=== PATIENT | male | born 1950 | race Caucasian/White ===

== ENCOUNTER → 2019-03-02 14:39 | Outpatient (CLI) | payer MEDICARE, SELFPAY ==
--- NOTE | 2019-03-02 14:44 | CT_ITS ---
EXAM: CT LUNG LOW DOSE WO CONTRAST TECHNIQUE: The exam was performed on a GE Light Speed [address] scanner using 3.0 mGy CTDI. A low dose helical CT CHEST was performed on a multi-detector scanner. All CT scans at this facility use one or more dose reduction techniques, viz.: automated exposure control, ma/kV adjustment per patient size (including targeted exams where dose is matched to indication, i.e. head) or iterative reconstruction technique. The LDCT was performed in a facility that meets the criteria for the screening program. Data regarding this exam was submitted to ACR which is an approved registry. The order for this exam indicates that it came as a result of a lung cancer screening counseling shard decision-making visit that included all the elements required of such a visit including smoking cessation. The radiologist interpreting this exam meets the [facility] criteria for the LDCT lung cancer screening program. The exam is reported using the Lung-RADS classification scale and reported to the ACR registry. NOTE: This study was performed for the specific purposes of lung cancer screening and is not an alternative to diagnostic chest CT. RADIATION DOSE: CTDI vol(CT dose Index-volume) = 2.9mGy DLP (Dose Length Product) = 112.81 mGy-cm COMPARISON: None HISTORY: 1 pack per day for 40 years = 40 pack-year history currently smoking. FINDINGS: LUNG PARENCHYMA Emphysema: Prominent centrilobular emphysematous changes . Scattered small peripheral blebs are most evident overlying posterior aspect of left lower lobe.-As seen on sagittal views. Also small bleb just above right hemidiaphragm . Areas of honeycombing and fibrotic changes are seen about the periphery of the lung greene bilaterally particularly evident towards the posterior right lung base. An above the hemidiaphragm on right more so than left... LUNG NODULE Survey.: No Dominant or suspicious mass lesions but there are some scattered small peripheral noncalcified nodules abutting the pleura bilaterally. These are most evident evident at the anterior aspect right upper lobe. For example note on axial slice 35 there is a 5 mm peripheral nodule abutting the pleura, and just lateral to this a small 4 mm similar character nodule. Just superior to this is a slightly bilobed up to 5 mm nodule on axial image 34. Slightly more inferior on image 39 is a thin 4.7 mm peripheral nodule. There are some minor pleural thickening throughout this entire region along with some minimal pleural calcification seen axial image 45. Small pleural-based peripheral 5 mm nodule axial image 53 On axial image 60 there is focal scarring I believe accounting for the flat 7 mm density peripherally at reflection of major fissure at the anterior reflection of the major fissure. I tend to favor all the areas mentioned above are due to scarring but will benefit from follow-up. . Small nonspecific 6.4 mm nodule at the RML intact as to the inferior aspect of the minor fissure and likely small fissural nodule but can be followed. On this same axial image 44 there is a 7 mm nodule extending inferior from the major fissure possible fissural nodule./Node. Small 5 mm nodule on axial image 42, attaches to the inferior margin the fissure and likely small benign contusion or nodule. More superiorly at the right lung apex small noncalcified peripheral nodule 6 mm in size on axial image 19. Apical pleural scarring on axial image 13, coronal image 42 most likely accounts for the density here. Left Lung: . Small peripheral 5 x 6 mm nodule left CP angle on axial image 69. Coronal image 42 .Small 5 mm peripheral nodule axial image 61 ... A tiny 4.2 mm nodule at periphery of LLL on axial image 53 mild central airway thickening. Of thes
== END ==
PROVIDERS: PCP Family Medicine; Visit Provider Family Medicine
DX: Z12.2 Encounter for screening for malignant neoplasm of respiratory organs (principal); Z87.891 Personal history of nicotine dependence

== ENCOUNTER → 2019-03-23 08:10 | Outpatient (CLI) | payer MEDICARE, SELFPAY ==
--- NOTE | 2019-03-23 08:12 | US_ITS ---
US gallbladder HISTORY: ITS.REASON: gallstones ORDERING PHYSICIAN: Steven De La Cruz MD PATIENT AGE: 68 years Comparison: None FINDINGS: PANCREAS: Pancreas is poorly demonstrated and may be better evaluated with CT. LIVER: No focal liver lesions demonstrated. Homogeneous echogenicity. No intrahepatic biliary ductal dilatation evident RIGHT KIDNEY: Unremarkable. Normal size and echogenicity. No hydronephrosis GALLBLADDER: Multiple gallstones are present. Common bile duct is normal at 3 mm. No gallbladder wall thickening or pericholecystic fluid. IMPRESSION: Cholelithiasis
== END ==
PROVIDERS: PCP Family Medicine; Visit Provider Surgery
DX: K82.9 Disease of gallbladder, unspecified (principal)
CPT/HCPCS: 76705

== ENCOUNTER → 2019-04-13 09:33 | Outpatient (CLI) | payer MEDICARE, SELFPAY ==
--- NOTE | 2019-04-13 09:38 | US_ITS ---
US Kidney CLINICAL INDICATION: ITS.REASON: CYST OF KIDNEY ORDERING PHYSICIAN: Juan F Saravia JR PATIENT AGE: 69 years Comparison: 03/02/2019 FINDINGS: Right kidney measures 13 x 6 x 6 mm. There is a small exophytic cyst projecting off the posterior aspect of the right kidney at 1 cm. No hydronephrosis. The left kidney is 15 x 6 x 7 cm. There are 4 left renal cyst with the largest cyst measuring 11 x 9 cm along the upper pole. This appears to represent a simple cyst as do the other smaller cysts. They range in size from 13 to 29 mm. No hydronephrosis. IMPRESSION: Bilateral renal cysts with with an 11 x 9 cm cyst along the upper pole the left kidney which has benign features
== END ==
PROVIDERS: PCP Family Medicine; Visit Provider Urology
DX: N28.1 Cyst of kidney, acquired (principal)
CPT/HCPCS: 76770

== ENCOUNTER → 2020-01-03 15:01 | Outpatient (CLI) | payer MEDICARE, SELFPAY ==
--- NOTE | 2020-01-03 15:05 | US_ITS ---
PROCEDURE: US KIDNEY CLINICAL INDICATION: CYST OF KIDNEY COMPARISON: KIDNEY US Kidney from 04/13/2019 FINDINGS: The right kidney is 11.5x5.4x5.4 centimeters. No hydronephrosis, cortical thinning, or perinephric fluid collection is evident. A 1.2 x 1.0 x 1.0 centimeter midpole right renal cyst is noted. The left kidney is 11.5x5.4x5 centimeters. No hydronephrosis, cortical thinning, or perinephric fluid collection is evident. There are 2 left renal cysts. Complicated one containing some internal echoes and rim calcification measures 1.6 by 1.2 by 0.93 centimeters and lower pole cyst with internal septation 1.2 x 1.3 x 1.1 centimeter is noted. Incidental note is made of borderline splenomegaly spleen 13.3 centimeters pole to pole and cholelithiasis. IMPRESSION: Bilateral renal cortical cysts without obstruction. Incidental cholelithiasis and nonspecific splenomegaly. Dictated by: Alejandro Reynolds 01/03/2020 17:29 Electronically signed by Alejandro Reynolds in [place] 01/03/2020 17:29
== END ==
PROVIDERS: PCP Family Medicine; Visit Provider Urology
DX: N28.1 Cyst of kidney, acquired (principal)
CPT/HCPCS: 76770

== ENCOUNTER → 2020-08-04 09:51 | Outpatient (CLI) | payer MEDICARE, SELFPAY ==
--- NOTE | 2020-08-04 | ECG_ITS ---
APPROVED REPORT Exam: Resting ECG HR:54 bpm ECG Measurements Heart Rate 54 AXES MT 140 P 46 QRSd 96 QRS -38 QT 406 T 33 QTc 385 <Conclusion> Sinus bradycardia Left axis deviation Abnormal ECG Electronically signed by : Mark Pineda, 08/04/2020 20:52:41
== END ==
PROVIDERS: PCP Family Medicine; Visit Provider Family Medicine
DX: R07.9 Chest pain, unspecified (principal)
CPT/HCPCS: 93005

== ENCOUNTER → 2020-08-05 07:01 | Outpatient (CLI) | payer MEDICARE, SELFPAY ==
--- NOTE | 2020-08-05 | CA_ITS ---
APPROVED REPORT Exam: Exercise Treadmill Technologist: Linda Gillis Ht: 5 ft 9 in Wt: 180 lbs BSA: 1.98 m2 HR: 52 bpm BP: 157/83 mmHg Indications: Smoker, chest pain, shortness of breath Medical History Medications: Aspirin,,,,, Vitamin B12,,,,, Citalopram,,,,, Ibuprofen,,,,, Stress Test Details Test: Christiano HR Resting HR: 58 bpm Max Heart Rate (APMHR): 152 bpm Max HR Achieved: 142 bpm Target HR (85% APMHR): 129 bpm % of APMHR: 93 Recovery HR: 67 bpm BP Resting BP: 157.0/83.0 mmHg Max BP: 190.0/80.0 mmHg Recovery BP: 165.0/82.0 mmHg ECG Clinical Exercise duration: 07:30 min Highest Stage Achieved: Exercise capacity: 10.1 METs Stress ECG Conclusion Resting ECG: Sinus bradycardia, T wave abnormalities in Lead III, PVC Patient exercised 7:30 on Christiano Protocol. Test stopped due to shortness of air, fatigue. Symptoms: No chest pain during exercise. Mild chest pressure pre-test. Arrhythmias/Ectopy: Occasional PVC or fusion beat. one V couplet. Sinus arrhythmias noted in recovery. ST-T Changes: Normal ST response to exercise. Conclusion: Normal GXT. Myoview images reported separately. Test Summary Stage 3 01:30 14.0 3.4 142 . . . . REST . . . . . . . Standing REST 05:50 0.0 0.0 58 . 157/ 83 . . Stage 1 01:00 10.0 1.7 90 . . . . Stage 1 02:00 10.0 1.7 97 . . . . Stage 1 03:00 10.0 1.7 101 . 158/ 88 . . Stage 2 01:00 12.0 2.5 109 . . . . Stage 2 . . . . . . . chest pressure Stage 2 02:00 12.0 2.5 116 . . . . Stage 2 03:00 12.0 2.5 119 . 180/ 90 . . Stage 3 . . . . . . . Myoview Injected Stage 3 01:00 14.0 3.4 136 . . . . Stage 3 01:30 14.0 3.4 142 . . . Stop exercise at 07:30 RECOVERY 01:00 0.0 0.0 108 . . . . RECOVERY 02:00 0.0 0.0 93 . 190/ 80 . . RECOVERY 03:00 0.0 0.0 77 . 190/ 80 . . RECOVERY 04:00 0.0 0.0 80 . 159/ 83 . . RECOVERY 05:00 0.0 0.0 70 . 165/ 82 . . RECOVERY 05:17 0.0 0.0 68 . 165/ 82 . . Electronically signed by : Frederick Crabtree, 08/05/2020 18:35:37
--- NOTE | 2020-08-05 07:14 | NM_ITS ---
APPROVED REPORT Exam: Nuclear Stress Test Indication: Chest pain, SOB, Former tobacco use, Family history Patient Location: Outpatient Stress Tech: Linda Gillis ND Tech:Nidia Chris, ARRT, RT (R)(N) Ht: 5 ft 9 in Wt: 180 lbs HR: 52 bpm BP: 157/83 mmHg BSA: 1.98 m2 BMI: 26.5 History: Chest pain, SOB, Former tobacco use, Family history Procedure: Patient exercised on Christiano protocol 7:30 minutes and sec, resting heart rate 52 bpm, resting blood pressure 157/83 mmHg, with exercise maximum heart rate achived was 142 bpm which is 93 % of the maximum predicted heart rate and blood pressure was 190/80 mmHg. Test was stopped due to SOA and fatigue. Patient denied any complaint of chest pain. Patient has good exercise capacity, achieved 10.1 METs of workload on treadmill, the blood pressure response to exercise was Adequate. Electrocardiogram Resting electrocardiogram shows sinus rhythm, with exercise there is less than 1.[address] segment depression noted from the baseline EKG. The EKG portion of the exercise Myoview is negative for ischemia. Cardiac Stress and Resting SPECT Images: Cardiac Stress and Resting SPECT images were obtained using technetium 99m Myoview 32.9 mCi stress and 10.79 mCi at rest. Gated SPECT for analysis of segmental wall motion and calculation of the ejection fraction also done. Cardiac stress and resting SPECT images show uniform myocardial activity without segmental perfusion abnormality, computer derived ejection fraction is 65% with no regional wall motion abnormality, right ventricle is normal size and contractility. Conclusion: 1. The EKG portion of the exercise Myoview is negative for ischemia, patient has good exercise capacity achieved 10.1 mets of workload on treadmill, the blood pressure response to exercise was adequate, there was no exercise-induced chest discomfort. Test was stopped due to shortness of breath. 2. No scintigraphic evidence of reversible ischemia seen at this level of exercise, computer derived ejection fraction is 65% with no regional wall motion abnormality, right ventricle is normal size and contractility. 3. Normal exercise Myoview study. Electronically signed by : Frederick Crabtree, 08/05/2020 18:41:39
--- NOTE | 2020-08-05 07:15 | CT_ITS ---
PROCEDURE: CT LUNG SCREENING CLINICAL INDICATION: H/O NICOTINE DEPENDENCE QUIT SMOKING NOV 2019 40-41 pack year smoking history COPD, FAMILY HX PRIOR 03/02/19 COMPARISON: CT LUNGSCREEN CT lung screening from 03/02/2019 TECHNIQUE: The exam was performed on a GE Light Speed [address] scanner using 2.90 mGy CTDI. A low dose helical CT CHEST was performed on a multi-detector scanner. All CT scans at the facility use one or more dose reduction, viz: automated exposure control, ma/kV adjustment per patient size (including targeted exams where dose is matched to indication, i.e. head), or iterative reconstruction technique. The LDCT was performed in a facility that meets the criteria for the screening program. Data regarding this exam was submitted to ACR which is an approved registry. The order for this exam indicates that it came as a result of a lung cancer screening counseling shard decision-making visit that included all the elements required of such a visit including smoking cessation. The radiologist interpreting this exam meets the [facility] criteria for the LDCT lung cancer screening program. The exam is reported using the Lung-RADS classification scale and reported to the ACR registry. NOTE: This study was performed for the specific purposes of lung cancer screening and is not an alternative to diagnostic chest CT. RADIATION DOSE: CTDI vol(CT dose Index-volume) = 2.90mG DLP (Dose Length Product) = 98.21 mGcm FINDINGS: Changes of COPD. Right apical scarring with pleural and parenchymal nodularity not significantly changed. There are scattered pleural and parenchymal opacities which are not significantly changed. There is peripheral interlobular septal thickening consistent with interstitial lung disease with some pulmonary fibrosis. Of the. No new nodules are identified. OTHER FINDINGS: Coronary artery calcifications. Small hiatal hernia. There is pleural thickening and calcification of the pleura posteriorly with calcified pleural plaques on the right. Cholelithiasis. IMPRESSION: Lung-RADS Category 2 Benign Appearance or Behavior Follow-up: Continue annual screening with LDCT in 12 months Dictated by: Triston Moreno MD 08/18/2020 10:07 Triston Moreno MD in [place] 08/18/2020 10:07
== END ==
PROVIDERS: PCP Family Medicine; Visit Provider Family Medicine
DX: R07.9 Chest pain, unspecified (principal); Z87.891 Personal history of nicotine dependence; Z12.2 Encounter for screening for malignant neoplasm of respiratory organs
CPT/HCPCS: 78452; 93017; A9502

== ENCOUNTER → 2021-02-09 12:43 | Outpatient (CLI) | payer MEDICARE, SELFPAY ==
--- NOTE | 2021-02-09 12:48 | US_ITS ---
PROCEDURE: US KIDNEY CLINICAL INDICATION: CYST OF KIDNEY COMPARISON: US US KIDNEY from 01/03/2020 FINDINGS: The right kidney is [id number]. No hydronephrosis, cortical thinning, or renal mass or perinephric fluid collection is evident. Focal anechoic lesion is noted in the right kidney measuring 1.2 centimeters. The left kidney is [id number]. No hydronephrosis, cortical thinning, or renal mass or perinephric fluid collection is evident. Multiple anechoic lesions noted in the left kidney, largest measures up to 1.8 x 1.7 centimeters, demonstrates internal septations. The spleen is normal in size measuring 11.5 centimeters in craniocaudal dimension. IMPRESSION: Bilateral simple and complex cysts. No evidence of hydronephrosis. Dictated by: Pallavi Olivo 02/09/2021 16:26 Pallavi Olivo in [place] 02/09/2021 16:26
== END ==
PROVIDERS: PCP Family Medicine; Visit Provider Urology
DX: N28.1 Cyst of kidney, acquired (principal)
CPT/HCPCS: 76770

== ENCOUNTER → 2022-03-12 13:46 | Outpatient (CLI) | payer MEDICARE, SELFPAY ==
--- NOTE | 2022-03-12 13:53 | XR_ITS ---
FINAL REPORT CLINICAL HISTORY: knee pain FINDINGS: LEFT KNEE Four views were obtained. There is no acute fracture or dislocation. There is a small osteophyte along the superior margin of the patella. There is sharpening of the tibial spines. Small joint effusion is identified. No soft tissue abnormality is identified. IMPRESSION: Degenerative change without acute process. Reviewed, Interpreted and Dictated by Anthony Anand MD Transcribed by Elizabet Martinze Authenticated by Anthony Anand MD on 03/12/2022 03:18:34 PM [facility]
== END ==
PROVIDERS: PCP Family Medicine; Visit Provider Orthopaedic Surgery
DX: M25.562 Pain in left knee (principal)
CPT/HCPCS: 73564

== ENCOUNTER → 2022-03-19 13:50 | Outpatient (CLI) | payer MEDICARE, SELFPAY ==
--- NOTE | 2022-03-19 13:53 | XR_ITS ---
FINAL REPORT CLINICAL HISTORY: rt knee pain FINDINGS: 4 views of the right knee were obtained. No prior exam is available for comparison. There is no acute fracture or dislocation. Mild degenerative joint disease is most pronounced in the patellofemoral compartment. The soft tissues are unremarkable. IMPRESSION: Mild degenerative joint disease most pronounced in the patellofemoral compartment. Reviewed, Interpreted and Dictated by Danielle Hoffman MD Transcribed by Arnaldo Canseco Authenticated by Danielle Hoffman MD on 03/19/2022 03:43:08 PM [facility]
== END ==
PROVIDERS: PCP Family Medicine; Visit Provider Orthopaedic Surgery
DX: M25.561 Pain in right knee (principal)
CPT/HCPCS: 73564

== ENCOUNTER → 2022-09-14 12:21 | Outpatient (CLI) | payer MEDICARE, SELFPAY ==
--- NOTE | 2022-09-14 12:29 | XR_ITS ---
FINAL REPORT CLINICAL HISTORY: foot pain unable to walk without pain bunions FINDINGS: Right foot Three views were obtained. There is no acute fracture or dislocation. There is severe hallux valgus deformity. There is 2nd through 3rd hammer toes. There are chronic erosions of the 2nd through 5th metatarsal heads. There are moderate degenerative changes of the midfoot. Small plantar calcaneal spur is identified. IMPRESSION: Degenerative and chronic appearing findings as above. Reviewed, Interpreted and Dictated by Steven Wilkerson III, MD Transcribed by Elizabet Martinez Authenticated and [facility]
--- NOTE | 2022-09-14 12:29 | XR_ITS ---
FINAL REPORT CLINICAL HISTORY: foot pain unable to walk without pain bunions FINDINGS: Left foot Three views were obtained. There is no acute fracture or dislocation. There is moderate hallux valgus deformity. There is chronic erosion at the 1st interphalangeal joint and 2nd through 5th metatarsophalangeal Alex there are moderate degenerative changes of the midfoot. Small plantar calcaneal spur is identified. IMPRESSION: Degenerative and chronic appearing findings. Reviewed, Interpreted and Dictated by Steven Wilkerson III, MD Transcribed by Elizabet Martinez Authenticated and [facility]
== END ==
PROVIDERS: PCP Family Medicine; Visit Provider Podiatrist
DX: M79.671 Pain in right foot (principal); M79.672 Pain in left foot
CPT/HCPCS: 73630

== ENCOUNTER 2022-11-10 18:22 | Emergency (ER) | payer MEDICARE, SELFPAY ==
[2022-11-10 18:23] VITALS: BP 139/68; PULSE 88; RESP 20; TEMP 38.3; O2SAT 98; BMI 22.7
--- NOTE | 2022-11-10 18:32 | ECG_ITS ---
APPROVED REPORT Exam: Resting ECG HR:91 bpm ECG Measurements Heart Rate 91 AXES NV 125 P 58 QRSd 109 QRS -62 QT 340 T 39 QTc 388 Conclusion SINUS RHYTHM LEFT ANTERIOR FASCICULAR BLOCK [QRS AXIS <= -45, QR IN I, RS IN II] ABNORMAL ECG UNCONFIRMED REPORT Electronically signed by : Mark Pineda MD 11/12/2022 08:54:15
--- NOTE | 2022-11-10 18:38 | XR_ITS ---
PROCEDURE INFORMATION: Exam: XR Chest Exam date and time: 11/10/2022 6:43 PM Age: 72 years old Clinical indication: Shortness of breath; Additional info: Shortness of air TECHNIQUE: Imaging protocol: Radiologic exam of the chest. Views: 2 views. COMPARISON: CT LUNG SCREENING 08/05/2020 7:19 AM FINDINGS: Lungs: Chronic pulmonary emphysematous changes, peripheral fibrosis and interstitial scarring, this appears progressed compared with the previous lung CT from 08/05/2020. Worsened peripheral airspace disease could be due to progressive fibrosis versus superimposed bilateral pneumonia. Pleural spaces: Unremarkable. No significant pleural effusion. No pneumothorax. Heart/Mediastinum: The cardiac silhouette is normal. Vasculature: Calcified plaques in the aortic arch. Bones/joints: Thoracolumbar scoliosis.There are spinal degenerative changes, with multilevel disc narrrowing and spondylosis. IMPRESSION: 1. Chronic pulmonary hyperinflation, interstitial lung disease and fibrosis. 2. Significantly worsened peripheral pulmonary airspace opacities bilaterally compared with 08/05/2020, which could be progressive fibrosis versus superimposed bilateral pneumonia.
[2022-11-10 18:40] VITALS: BMI 22.7
--- NOTE | 2022-11-10 18:42 | PC.NURSE ---
DR. MUÑIZ AT BEDSIDE
--- NOTE | 2022-11-10 18:45 | PC.NURSE ---
SIDRA CADENA AT
--- NOTE | 2022-11-10 18:51 | HMH.EDGENADL ---
Discharge Plan Disposition Patient Disposition: Home, Self-Care Condition: Good Prescriptions Prescriptions: New amoxicillin-pot clavulanate [Augmentin] 500-125 mg tablet 1 tab PO Q12H 10 Days Qty: 20 0RF ondansetron HCl 4 mg tablet 4 mg PO Q6H PRN (Reason: nausea and vomiting) Qty: 10 0RF No Action celecoxib 200 mg capsule 200 mg PO DAILY citalopram 20 mg tablet 20 mg PO DAILY trazodone 100 mg tablet 100 mg PO DAILY ibuprofen 800 mg tablet 800 mg PO TID naproxen sodium [Aleve] 220 mg capsule 220 mg PO Q8H aspirin [Adult Low Dose Aspirin] 81 mg tablet,delayed release (DR/EC) 81 mg PO DAILY Referrals Follow up/Referrals: Brandon Bennett MD [Primary Care Provider] - See instructions Activity Restrictions/Add. Instructions Additional Instructions/Restrictions: Take 1000 mg Tylenol every 6 hours along with 600 mg ibuprofen every 6 hours for inflammation. Make sure to take this with food and water to prevent GI upset, vomiting, kidney damage. Take your antibiotic twice daily for 10 days as prescribed. Ondansetron has been sent to the pharmacy for symptomatic nausea and vomiting. If you have any other concerning signs or symptoms, or worsen despite treatment, come to the ED for further evaluation promptly. Clinical Impressions Clinical Impression: Pneumonia Instructions Patient Instructions: DI for Diarrhea and Traveler's Diarrhea -- Adult, DI for Diarrhea and Traveler's Diarrhea -- Child, DI for Nausea -- Adult, DI for Nausea -- Child Discharge ED Provider: Mars Guzman General Adult HPI General Chief complaint: Nausea/Vomiting/Diarrhea Stated complaint: SOA Time Seen by Provider: 11/10/22 18:30 Mode of Arrival: Ambulatory Source of Information: Patient Limitations: No Limitations History of Present Illness HPI narrative: This is a 72-year-old male with history of COPD who is presenting with fever, cough, shortness of breath. Patient states that he has been progressively short of breath over the past 3 to 4 days. Coughing up green and white sputum. He has also had sinus drainage that is green and yellow. He feels febrile and chilled, however has not had any objective temperatures measured. Patient was also had nonbloody diarrhea. He has been able to tolerate p.o. intake, although less given decreased appetite. Denies chest pain, abdominal pain, dysuria, hematuria, unilateral weakness, headache, or any other concerning symptoms. No known sick contacts or recent travel. Related Data Home Medications Medication Instructions Recorded Confirmed aspirin 81 mg tablet,delayed 81 mg PO DAILY 03/16/19 09/17/22 release (Adult Low Dose Aspirin) citalopram 20 mg tablet 20 mg PO DAILY 03/16/19 09/17/22 ibuprofen 800 mg tablet 800 mg PO TID 03/16/19 09/17/22 naproxen sodium 220 mg capsule 220 mg PO Q8H 03/16/19 09/17/22 (Aleve) trazodone 100 mg tablet 100 mg PO DAILY 03/16/19 09/17/22 celecoxib 200 mg capsule 200 mg PO DAILY 06/18/22 09/17/22 Previous Rx's Medication Instructions Recorded amoxicillin 500 mg-potassium 1 tab PO Q12H 10 days #20 tabs 11/10/22 clavulanate 125 mg tablet (Augmentin) ondansetron HCl 4 mg tablet 4 mg PO Q6H PRN nausea and 11/10/22 vomiting #10 tabs Allergies Allergy/AdvReac Type Severity Reaction Status Date / Time No Known Allergies Allergy Verified 09/17/22 09:19 [facility] Disclaimer: The information contained in this section may have been updated after the patient was seen, as this information can be updated by other users. Social History Smoking Status: Never smoker alcohol intake: never current occupational status: unemployed Travel in the last 8 weeks: None ROS Obtained: Yes All systems reviewed & no additional complaints except as documented Physical Exam General General appearance: alert, in no apparent distress and other (Diaph
--- NOTE | 2022-11-10 18:52 | PC.NURSE ---
PT TO CT
[2022-11-10 18:53] LABS: Basophils % 0.4 % (0.1-2.0); Eosinophils # 0.1 K/mm3 (0.0-0.4); Eosinophils % 0.6 % (0.1-12.0); Hematocrit 32.3 % (42.0-52.0); Hemoglobin 10.4 g/dL (14.1-18.0); Lymphocytes # 0.9 K/mm3 (0.7-4.5); Lymphocytes % 11.7 % (10-50); Mean Corpuscular HGB Conc 32.1 g/dL (31.8-35.4); Mean Corpuscular Hemoglobin 23.4 pg (27.0-31.2); Mean Corpuscular Volume 73.1 fl (80-94); Mean Platelet Volume 7.7 fl (7.4-10.4); Monocytes # 0.2 K/mm3 (0.1-1.0); Monocytes % 2.6 % (1.7-9.3); Neutrophils # 6.4 K/mm3 (1.8-7.8); Neutrophils % 84.7 % (37.0-80.0); Platelet Count 532 K/mm3 (142-424); Red Blood Count 4.42 M/mm3 (4.60-6.20); Red Cell Distribution Width 16.8 % (11.5-17.5); White Blood Count 7.5 K/mm3 (4.8-10.8)
[2022-11-10 19:04] LABS: Chloride 105 mmol/L (98-107); Sodium 139 mmol/L (136-145)
[2022-11-10 19:05] LABS: Coronavirus 19, PCR Not Detected (NotDetected); Influenza A, PCR Not Detected (NotDetected); Influenza B, PCR Not Detected (NotDetected); Potassium 4.1 mmoL/L (3.5-5.1)
[2022-11-10 19:07] LABS: Alanine Aminotransferase 31 U/L (12-78); Albumin Level 3.5 g/dl (3.5-5.0); Albumin/Globulin Ratio 0.9 (1.1-1.8); Alkaline Phosphatase 150 U/L (38-126); Anion Gap 10.1 mEq/L (5-15); Aspartate Amino Transferase 40 U/L (17-59); Bilirubin,Total 0.4 mg/dl (0.2-1.3); Blood Urea Nitrogen 16 mg/dl (9-20); Carbon Dioxide 28 mmol/L (22.0-30.0); Creatinine Clearance Estimated 68 mL/min (50-200); Estimated Glomerular Filt Rate 96 ml/min (>60); GFR (African American) 116 ML/MIN (>60); Globulin 3.7 g/dL (1.3-3.2); Total Protein,Serum 7.2 g/dl (6.3-8.2)
[2022-11-10 19:08] LABS: Calcium 8.4 mg/dl (8.4-10.2); Glucose 149 mg/dl (74-100)
[2022-11-10 19:09] LABS: Lactic Acid 1.4 mmol/L (0.7-2.1)
[2022-11-10 19:19] LABS: NT Pro Brain Natriuretic Pep. 721 pg/mL (0-125)
[2022-11-10 19:29] LABS: Troponin I < 0.01 ng/ml (0.00-0.034)
[2022-11-10 19:38] VITALS: TEMP 37.2
[2022-11-10 20:45] VITALS: BP 131/78; PULSE 82; RESP 20; TEMP 37.2; O2SAT 98
== END 2022-11-10 20:48 | disposition home or self-care (01) ==
PROVIDERS: Emergency Provider Emergency Medicine; PCP Family Medicine
DX: R50.9 Fever, unspecified (principal); R11.2 Nausea with vomiting, unspecified; R19.7 Diarrhea, unspecified; R61 Generalized hyperhidrosis; R00.0 Tachycardia, unspecified; R79.89 Other specified abnormal findings of blood chemistry; J44.9 Chronic obstructive pulmonary disease, unspecified; Z79.1 Long term (current) use of non-steroidal anti-inflammatories (NSAID); Z79.82 Long term (current) use of aspirin; Z79.899 Other long term (current) drug therapy
CPT/HCPCS: 71046; 80053; 83605; 83880; 84484; 85025; 87040; 93005; 96361; 96374; 99284; C9803; J0696; U0003; U0005

== ENCOUNTER → 2022-12-27 15:13 | Outpatient (CLI) | payer MEDICARE, SELFPAY ==
--- NOTE | 2022-12-27 15:18 | XR_ITS ---
FINAL REPORT CLINICAL HISTORY: COUGH COMPARISON: 11/10/2022 FINDINGS: PA and lateral views of the chest were obtained. The cardiac and mediastinal silhouettes are within normal limits. There are patchy bilateral opacities which have improved with the exception of the right lower lobe. There are increased interstitial markings which may represent underlying fibrosis. There is no pleural effusion or pneumothorax. No acute osseous abnormality is identified. IMPRESSION: Improved pulmonary opacities other than the right lower lobe, residual pneumonia is not excluded. Underlying pulmonary fibrosis. Reviewed, Interpreted and Dictated by Danielle Hoffman MD Transcribed by Elizabet Martinez Authenticated and [facility]
[2022-12-27 16:04] LABS: Basophils % 0.4 % (0.1-2.0); Eosinophils # 0.1 K/mm3 (0.0-0.4); Eosinophils % 0.7 % (0.1-12.0); Hematocrit 33.5 % (42.0-52.0); Hemoglobin 10.4 g/dL (14.1-18.0); Lymphocytes # 2.1 K/mm3 (0.7-4.5); Mean Corpuscular Hemoglobin 22.6 pg (27.0-31.2); Mean Platelet Volume 7.7 fl (7.4-10.4); Monocytes # 0.5 K/mm3 (0.1-1.0); Monocytes % 4.3 % (1.7-9.3); Neutrophils # 8.3 K/mm3 (1.8-7.8); Neutrophils % 75.6 % (37.0-80.0); Platelet Count 503 K/mm3 (142-424); Red Cell Distribution Width 17.4 % (11.5-17.5)
[2022-12-27 16:50] LABS: Alanine Aminotransferase 28 U/L (12-78); Albumin Level 3.5 g/dl (3.5-5.0); Albumin/Globulin Ratio 0.9 (1.1-1.8); Alkaline Phosphatase 119 U/L (38-126); Anion Gap 10.4 mEq/L (5-15); Aspartate Amino Transferase 32 U/L (17-59); Bilirubin,Total 0.3 mg/dl (0.2-1.3); Blood Urea Nitrogen 26 mg/dl (9-20); Calcium 8.9 mg/dl (8.4-10.2); Carbon Dioxide 27 mmol/L (22.0-30.0); Chloride 103 mmol/L (98-107); Estimated Glomerular Filt Rate 111 ml/min (>60); GFR (African American) 135 ML/MIN (>60); Globulin 3.8 g/dL (1.3-3.2); Glucose 83 mg/dl (74-100); Potassium 4.4 mmoL/L (3.5-5.1); Sodium 136 mmol/L (136-145); Total Protein,Serum 7.3 g/dl (6.3-8.2)
== END ==
PROVIDERS: PCP Family Medicine; Visit Provider Family Medicine
DX: R05.9 Cough, unspecified (principal); R63.4 Abnormal weight loss
CPT/HCPCS: 36415; 71046; 80053; 85025

== ENCOUNTER 2023-01-05 09:16 | Day surgery (SDC) | payer MEDICARE, SELFPAY ==
[2022-12-09 13:39] VITALS: BMI 20.9
[2023-01-05 09:46] VITALS: BP 136/70; PULSE 107; RESP 22; TEMP 37; O2SAT 98
[2023-01-05 10:12] VITALS: O2SAT 98
--- NOTE | 2023-01-05 10:22 | P.PN_ITS ---
[facility] Disclaimer: The information contained in this section may have been updated after the patient was seen, as this information can be updated by other users. Medical History History of anemia History of anxiety History of vitamin D deficiency Surgical History Hx of total cystectomy Family History Other Family history of cancer Family history of diabetes mellitus type II Family history of hypertension Social History Smoking Status: Former smoker quit date: 12/16/18 alcohol intake: never substance use type: denies use current occupational status: unemployed Travel in the last 8 weeks: None housing: house lives independently: No marital status: education level: high school caffeine: Yes special vianca needs: No agree to transfusion: No do you feel safe at home: Yes victim of physical abuse: No victim of emotional abuse: No victim of sexual abuse: No would you like helpful sources: No [facility] Anesthesia Checklist Patient Identification Patient Identification: Arm Band Structural Data Admitted From: Home Planned Operative Procedure/s: EGD/Colonoscopy Consent for Planned Operative Procedure(s) Verified: Yes Verified Documents: Surgical Consent and History and Physical NPO Status Verified Time NPO: 00:00 Additional verifications Anesthesia Reactions: No Airway Assessment C-Spine Mobility Assessed: Yes TMJ Mobility Assessed: Yes Dentition: Good Dentition Neurological Assessment Level of Consciousness: Awake and Alert Anesthesia Plan Anesthesia Risk discussed: Yes Anesthesia Plan: Verified ASA Class: III Anesthesia Type: MAC
--- NOTE | 2023-01-05 10:44 | HMH.SCOPE ---
Procedure: Date: 01/05/23 Patient Date of :: 1950 Procedure Performed:: Colonoscopy Indications:: Hisory of colon polyps. Anemia Performing Provider:: Godwin Pritchard MD Referring Provider:: Sagar Bennett MD Sedation:: See RN records Procedure:: After placing the patient in the left lateral decubitus position, the colonoscopy was gently inserted into the rectum and under direct visualization advanced to the cecum which was identified by transillumination in the right lower quadrant, identification of the ileocecal valve, appendiceal orifice, and cecal strap. Color, texture, mucosa, and anatomy of the colon were carefully examined with the scope. bowel prepraation was good Findings:: Anal canal: normal Rectum: Large internal hemorrhoids Sigmoid colon: diverticulosis Descending colon: diverticulosis Splenic flexure: normal Transverse colon: normal without polyps or inflammatory changes Hepatic flexure: normal Ascending colon: normal without polyps or inflammatory changes Cecum: small non bleeding avm Terminal ileum: not visualized Impression: Diverticulosis Small non bleeding avm of cecum Recommendations:: Recommend iron replacement therapy as needed Higher fiber diet Repeat colonosocpy in 5 years Complications:: None Estimated blood obtained (mL): 0
[2023-01-05 10:45] VITALS: BP 98/54; PULSE 95; RESP 17; TEMP 36.6; O2SAT 95
--- NOTE | 2023-01-05 10:47 | P.PCN_ITS ---
Procedure: Date: 01/05/23 Patient Date of :: 1950 Procedure Performed:: EGD Indications:: Anemia Performing Provider:: Godwin Pritchard MD Referring Provider:: Sagar Bennett MD Sedation:: See RN records Procedure:: The gastroscope was gently passed through the incisoral orifice into the oral cavity and under direct visualization the esophagus was intubated. The endoscope was passed down the esophagus, through the stomach, and into the duodenum. Color, texture, mucosa, and anatomy of the esophagus, stomach, and duodenum were carefully examined with the scope. 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 Multiple biopsies obtained in four quadrant fashion over the length of Chanel's mucosa EG Junction: measured at 39 cm Cardia: normal Fundus: normal Body: normal Antrum: normal Duodenal bulb: normal Duodenum (second and third portion): not seen (looping of EGD scope within stomach would not allow advancing EGD, patient developed repetitive coughing and procedure aborted) Impression: Chanel's esophagus. [id number] Recommendations:: Await pathology results Omeprazole 40 mg once daily Repeat EGD in 3 years or sooner if clinically indicated Complications:: None Estimated blood obtained (mL): 0
[2023-01-05 10:55] VITALS: BP 97/64; PULSE 92; RESP 16; O2SAT 95
[2023-01-05 11:05] VITALS: BP 112/68; PULSE 82; RESP 17; O2SAT 98
[2023-01-05 11:15] VITALS: BP 115/65; PULSE 87; RESP 17; O2SAT 98
== END 2023-01-05 11:21 | disposition home or self-care (01) ==
PROVIDERS: PCP Family Medicine; Visit Provider Internal Medicine
PROC: 0DJ08ZZ Inspection of Upper Intestinal Tract, Via Natural or Artificial Opening Endoscopic (ICD-10-PCS; CPT 43235; principal; 2023-01-05 10:30)
DX: D64.9 Anemia, unspecified (principal); K57.30 Diverticulosis of large intestine without perforation or abscess without bleeding; K22.70 Barrett's esophagus without dysplasia; K64.8 Other hemorrhoids; Z86.010 Personal history of colon polyps; Z79.899 Other long term (current) drug therapy
CPT/HCPCS: 43239; 45378; 88305

== ENCOUNTER → 2023-01-10 10:06 | Outpatient (CLI) | payer MEDICARE, SELFPAY ==
--- NOTE | 2023-01-10 | CT_ITS ---
FINAL REPORT TECHNIQUE: Thin section axial images were obtained through the abdomen after intravenous contrast. Reconstruction images were obtained from the axial data. Exam was performed using dose reduction techniques. CLINICAL HISTORY: GASTROINTESTINAL HEMORRHAGE,WEIGHT LOSS,ABD PAIN COMPARISON: none FINDINGS: The liver is homogeneous. Gallstones are noted in the gallbladder.. The spleen, adrenal glands, and pancreas are without acute abnormality. There are bilateral renal cysts. No hydronephrosis. There is a small hiatal hernia. Abdominal GI tract is without acute abnormality. No evidence of small-bowel obstruction. There is no abdominal lymphadenopathy or ascites. The pelvic solid organs are unremarkable. The prostate is normal in size for age. Appendix is normal. There is diverticulosis without evidence of diverticulitis.. There is no pelvic lymphadenopathy or ascites. No acute osseous abnormalities identified. IMPRESSION: No acute intra-abdominal or intrapelvic abnormality. Diverticulosis without evidence of diverticulitis.. Reviewed, Interpreted and Dictated by Danielle Hoffman MD Transcribed by Adore Santos Authenticated and [facility]
--- NOTE | 2023-01-10 10:27 | CT_ITS ---
FINAL REPORT TECHNIQUE: Thin section axial images were obtained from the thoracic inlet through the upper abdomen after intravenous contrast injection. Reconstruction images were obtained from the axial data. Exam was performed using dose reduction technique. CLINICAL HISTORY: PERSISTENT PNEUMONIA, ABNORMAL CXR COMPARISON: 08/05/2020 CT low-dose screening FINDINGS: There are bilateral hypodense thyroid nodules. There are mildly enlarged bilateral axillary lymph nodes. There is a retropectoral lymph node measuring 1.7 cm on the left. There is a right axillary lymph node measuring 2.6 cm. Mediastinal lymphadenopathy has increased. There is AP window lymph node measuring 2.8 cm, was 2.1 cm. There is a subcarinal lymph node measuring 2.9 cm, was 2.0 cm. There is chronic right pleural thickening with calcification. There is no pleural or pericardial effusion. There has been interval worsening of bilateral irregular opacities. Some are new since prior screening CT. There is a ground-glass opacity in the right middle lobe and right greater than left lower lobes which could be infectious or inflammatory or may be related to pulmonary edema. Underlying fibrosis is again noted. No acute osseous abnormality. IMPRESSION: New ground-glass opacities could be infectious, inflammatory, or related to pulmonary edema. Worsening irregular opacities favored to be infectious or inflammatory. Recommend three month follow-up chest CT. Lymphadenopathy could be reactive or neoplastic. Progressed since 2019 Reviewed, Interpreted and Dictated by Danielle Hoffman MD Transcribed by Adore Santos Authenticated and [facility]
== END ==
PROVIDERS: PCP Family Medicine; Visit Provider Family Medicine
DX: J18.9 Pneumonia, unspecified organism (principal); R93.89 Abnormal findings on diagnostic imaging of other specified body structures; R10.84 Generalized abdominal pain; K92.2 Gastrointestinal hemorrhage, unspecified; R63.4 Abnormal weight loss
CPT/HCPCS: 71260; 74177; Q9967

== ENCOUNTER 2023-01-19 07:55 | Outpatient (CLI) | payer MEDICARE, SELFPAY ==
[2023-01-19 08:40] VITALS: BP 116/70; PULSE 91; RESP 16; O2SAT 99
[2023-01-19 09:40] VITALS: BP 124/68; PULSE 89; RESP 16
[2023-01-19 10:40] VITALS: BP 114/68; PULSE 84; RESP 16
[2023-01-19 11:40] VITALS: BP 132/68; PULSE 85; RESP 16
== END 2023-01-19 12:00 | disposition home or self-care (01) ==
LOC: INF 07:56
PROVIDERS: PCP Family Medicine; Visit Provider Family Medicine
DX: D50.0 Iron deficiency anemia secondary to blood loss (chronic) (principal)
CPT/HCPCS: 96365; 96366

== ENCOUNTER 2023-01-31 09:36 | Day surgery (SDC) | payer MEDICARE, SELFPAY ==
[2023-01-27 14:10] VITALS: BMI 19.2
[2023-01-31] VITALS (11 sets, daily range): BP systolic 101–169; BP diastolic 65–112; PULSE 90–108; RESP 16–18; TEMP 36.4–43; O2SAT 93–97
--- NOTE | 2023-01-31 | XR_ITS ---
FINAL REPORT CLINICAL HISTORY: RIGHT BRONCH IN OR, ft 1:36 Authenticated and [facility]
--- NOTE | 2023-01-31 10:18 | P.PN_ITS ---
[facility] Disclaimer: The information contained in this section may have been updated after the patient was seen, as this information can be updated by other users. Medical History Dyspnea on exertion History of anemia History of anxiety History of vitamin D deficiency ILD (interstitial lung disease) Pulmonary emphysema Pulmonary fibrosis, unspecified Stopped smoking with greater than 30 pack year history Surgical History History of colonoscopy Hx of total cystectomy Family History Other Family history of cancer Family history of diabetes mellitus type II Family history of hypertension Social History Smoking Status: Former smoker quit date: 12/16/18 alcohol intake: never substance use type: denies use current occupational status: retired Travel in the last 8 weeks: None adopted: No caregiver/support person: No foster care: No household members: spouse housing: house lives independently: No marital status: education level: high school service: No skilled nursing: No caffeine: Yes special vianca needs: No agree to transfusion: No do you feel safe at home: Yes victim of physical abuse: No victim of emotional abuse: No victim of sexual abuse: No would you like helpful sources: No [facility] Anesthesia Checklist Patient Identification Patient Identification: Arm Band and Verbal (Name & ) Structural Data Admitted From: Home Planned Operative Procedure/s: Bronchoscopy with EBUS Consent for Planned Operative Procedure(s) Verified: Yes NPO Status Verified Time NPO: 00:00 Additional verifications Anesthesia Reactions: No Airway Assessment C-Spine Mobility Assessed: Yes TMJ Mobility Assessed: Yes Dentition: Dentures-good fit Neurological Assessment Level of Consciousness: Awake Hx Seizures: No Numbness or tingling in extremities: No Anesthesia Plan Anesthesia Risk discussed: Yes Anesthesia Plan: Verified ASA Class: III Anesthesia Type: General
--- NOTE | 2023-01-31 13:02 | P.PNANES_ITS ---
[facility] Anesthesia Record Part I Anesthesia Record I Intake, IV Amount: 500 Estimated blood loss (mL): 0 Urine output (mL): 0 Blood Products used (#): none Blood Pressure: 111/65 SaO2: 96 Pulse Rate: 105 Respiratory Rate: 16 Temperature: 98.6 F Patient is:: Drowsy and Stable Stable to PACU at:: 13:00
--- NOTE | 2023-01-31 13:03 | XR_ITS ---
FINAL REPORT CLINICAL HISTORY: POST bronchoscopy COMPARISON: 12/27/2022 FINDINGS: SINGLE-VIEW CHEST The heart size is normal. The mediastinum is normal. There is extensive coarse chronic interstitial opacity. There is an airspace opacity in the right mid lung, probably due to pneumonia or hemorrhage. There is no pneumothorax. IMPRESSION: Airspace opacity in right mid lung, probably due to pneumonia or hemorrhage. Recommend continued follow-up. Reviewed, Interpreted and Dictated by Anthony Anand MD Transcribed by Elizabet Martinez Authenticated and [facility]
--- NOTE | 2023-01-31 13:22 | EXP.BRONCH.N ---
Procedure: Date: 01/31/23 Patient Date of :: 1950 Procedure Performed:: Bronchoscopy airway examination, transbronchial biopsy and EBUS FNA Indications:: Lung nodules and lymphadenopathy Performing Provider:: Colin Best MD Referring Provider:: Dr. Bennett Sedation:: General anesthesia Procedure:: Bronchoscopy airway examination, bronchoalveolar lavage,transbronchial lung biopsy and endobronchial ultrasound-guided fine-needle aspiration: Clean EBUS bronchoscopy was advanced to the ET tube and lymph node surveillance was performed. Patient noted to have lymphadenopathy at stations 10 R, 7 and 10 L. A total of 6 passes were performed rat each of the mentioned lymphnode stations. FNA sample from one pass fromeach of the three station was sent in [place] medium for flow cytometric evaluation. Rest of the FNA samples were sent for cytopathologic examination separately for each lymphnode sampled. Pathology at bedside. Confirmed adequate lymphoid tissue. No evidence of malignancy. Await final results. EBUS bronchoscopy was retracted and a A clean therapeutic bronchoscopy was advanced through the ET tube and airways were examined up to subsegmental bronchi. Airways appeared grossly normal, no evidence of mucoid secretions, mucous plugging active bleeding/old blood clots noted. Bronchoalveolar lavage was performed in the RIGHT LOWER LOBE with instillation of 60 cc normal saline with return of 30 cc back. BAL fluid was sent for cell count and differential along with bacterial fungal and AFB stain and cultures. Transbronchial biopsy was performed in the RIGHT LOWER LOBE with a total of 7 biopsies performed, 5 biopsy specimens were sent in formalin for cytopathologic examination. The other 2 biopsy samples, were sent one each in two separate normal saline specimen cups for bacterial fungal and AFB stain cultures. Special request was also made for the pathologist to evaluate for AFB and fungal organisms on the cytopathologic examination. Patient tolerated the procedure with no immediate acute complications. We will follow the patient in pulmonary clinic in 7 to 10 days. Findings:: Please see the procedure note Recommendations:: Please see the procedure note. Complications:: No acute immediate complications but awaiting chest x-ray. Estimated blood obtained (mL): 15
--- NOTE | 2023-01-31 14:00 | SUR.PHASEII ---
christina singer rn noted redness to IV site from tape. family educated on keeping an eye on healing process
--- NOTE | 2023-01-31 14:19 | SUR.PHASEII ---
christina singer rn also noted a rash appearance to lower chest and stomach.
--- NOTE | 2023-01-31 15:18 | EXP.ANES.II ---
[facility] Anesthesia Record Part II Anesthesia Record Part II Discharge Time: 13:25 Destination: Surgical Day Care (OP Surgery) PACU nurse assessment reviewed?: Yes Patient Condition:: Good Anesthesia Complications:: None Swallowing reflex intact?: Yes Cyanosis?: No Blood Pressure: 119/67 Pulse Rate: 99 Temperature: 97.7 F Mental Status: Alert & Oriented Pain level:: 0 Nausea and/or vomitting:: None Intake, IV Amount: 0
== END 2023-01-31 14:10 | disposition home or self-care (01) ==
PROVIDERS: PCP Family Medicine; Visit Provider Internal Medicine Pulmonary Disease
PROC: (CPT 31624; principal; 2023-01-31 11:00)
DX: J84.10 Pulmonary fibrosis, unspecified (principal); Z79.899 Other long term (current) drug therapy; Z87.891 Personal history of nicotine dependence; R93.89 Abnormal findings on diagnostic imaging of other specified body structures; R06.09 Other forms of dyspnea; J43.9 Emphysema, unspecified; R59.1 Generalized enlarged lymph nodes
CPT/HCPCS: 31624; 31628; 31653; 71045; 76000; 87070; 87077; 87102; 87116; 87186; 87205; 87206; 88112; 88172; 88173; 88305; 89051; J2405

== ENCOUNTER 2023-02-02 07:55 | Outpatient (CLI) | payer MEDICARE, SELFPAY ==
[2023-02-02 08:35] VITALS: BP 133/70; PULSE 80; RESP 18; O2SAT 97
[2023-02-02 09:35] VITALS: BP 124/59; PULSE 75; RESP 16
[2023-02-02 10:35] VITALS: BP 120/76; PULSE 82; RESP 16
[2023-02-02 11:35] VITALS: BP 137/71; PULSE 73; RESP 16; O2SAT 95
== END 2023-02-02 12:00 | disposition home or self-care (01) ==
LOC: INF 07:56
PROVIDERS: PCP Family Medicine; Visit Provider Family Medicine
DX: D50.0 Iron deficiency anemia secondary to blood loss (chronic) (principal)
CPT/HCPCS: 96365; 96366; J1756

== ENCOUNTER → 2023-02-08 13:43 | Outpatient (CLI) | payer MEDICARE, SELFPAY ==
[2023-02-08 15:11] LABS: Alanine Aminotransferase 11 U/L (12-78); Albumin Level 3.3 g/dl (3.5-5.0); Alkaline Phosphatase 102 U/L (38-126); Anion Gap 9.8 mEq/L (5-15); Aspartate Amino Transferase 24 U/L (17-59); Bilirubin,Total 0.4 mg/dl (0.2-1.3); Blood Urea Nitrogen 17 mg/dl (9-20); Calcium 8.4 mg/dl (8.4-10.2); Carbon Dioxide 30 mmol/L (22.0-30.0); Chloride 101 mmol/L (98-107); Estimated Glomerular Filt Rate 111 ml/min (>60); GFR (African American) 135 ML/MIN (>60); Globulin 3.4 g/dL (1.3-3.2); Glucose 96 mg/dl (74-100); Potassium 3.8 mmoL/L (3.5-5.1); Sodium 137 mmol/L (136-145); Total Protein,Serum 6.7 g/dl (6.3-8.2); Uric Acid 4.6 mg/dl (3.5-8.5)
[2023-02-08 15:14] LABS: Creatine Kinase < 20 U/L (55-170)
[2023-02-08 15:16] LABS: C-Reactive Protein 79.5 mg/L (0-4)
[2023-02-08 15:45] LABS: Erythrocyte Sedimentation Rate 81 mm/hr (0-20)
[2023-02-10 14:05] LABS: Anti-Cyclic Citrullinated Pept >250 units (0-19)
[2023-02-10 14:13] LABS: Angiotensin Converting Enzyme 75 U/L (14-82)
[2023-02-10 16:49] LABS: Antinuclear Antibodies, IFA Negative (.)
[2023-02-10 18:04] LABS: Cytoplasmic (C-ANCA) >1:640 titer (Neg:<1:20); Perinuclear (P-ANCA) <1:20 titer (Neg:<1:20)
[2023-02-11 09:51] LABS: RA Latex Turbid. >650.0 IU/mL (<14.0)
[2023-02-11 13:42] LABS: QuantiFERON-TB Gold Plus Indeterminate (Negative)
[2023-02-13 18:07] LABS: Aspergillus flavus Negative (Neg:<1:1); Aspergillus fumigatus Negative (Neg:<1:1); Aspergillus niger Negative (Neg:<1:1); Blastomyces Antibody Negative (Neg:<1:1)
[2023-02-14 15:09] LABS: Strongyloides IgG Antibody Negative (Negative)
[2023-02-15 05:22] LABS: Antinuclear Antibodies (ANA) NEGATIVE
== END ==
PROVIDERS: PCP Family Medicine; Visit Provider Internal Medicine Pulmonary Disease
DX: D72.19 Other eosinophilia (principal); R06.09 Other forms of dyspnea; J84.9 Interstitial pulmonary disease, unspecified; J84.10 Pulmonary fibrosis, unspecified
CPT/HCPCS: 36415; 80053; 82164; 82550; 84550; 85651; 86038; 86140; 86200; 86225; 86235; 86256; 86431; 86480; 86606; 86612; 86682

== ENCOUNTER → 2023-02-28 12:30 | Outpatient (CLI) | payer MEDICARE, SELFPAY ==
[2023-02-28 13:50] VITALS: PULSE 88; PULSE 91
== END ==
PROVIDERS: PCP Family Medicine; Visit Provider Internal Medicine Pulmonary Disease
DX: R06.02 Shortness of breath (principal)
CPT/HCPCS: 94060; 94618; 94640; 94727; 94729

== ENCOUNTER → 2023-03-10 14:51 | Outpatient (CLI) | payer MEDICARE, SELFPAY ==
[2023-03-13 00:02] LABS: QuantiFERON-TB Gold Plus Negative (Negative)
== END ==
PROVIDERS: PCP Family Medicine
DX: R06.09 Other forms of dyspnea (principal)
CPT/HCPCS: 36415; 86480

== ENCOUNTER 2023-03-14 10:22 | Outpatient (CLI) | payer MEDICARE, SELFPAY ==
--- NOTE | 2023-03-14 10:28 | PC.NURSE ---
1028-gave tb skin test with patient in isolated room and rn gowned and donned in n 95mask
[2023-03-14 10:30] VITALS: BP 160/80; PULSE 59; RESP 18; TEMP 36.4; O2SAT 95
--- NOTE | 2023-03-14 10:35 | PC.NURSE ---
1035-called and spoke to raheem love rn with dr.mary martins pt here to get tb skin test d/t positive [place] tb gold,but low enough to be a false positive and pt is on high dose ra medication and they have to do a rule out tb skin test.
--- NOTE | 2023-03-14 10:50 | PC.NURSE ---
1050-environmental services here to spray bay 5 and room 7.
--- NOTE | 2023-03-16 10:35 | PC.NURSE ---
PPD READ AT THIS TIME 0.0MM, NEGATIVE RESULTS
== END 2023-03-14 10:30 | disposition home or self-care (01) ==
LOC: INF 10:24
PROVIDERS: PCP Family Medicine; Visit Provider Internal Medicine Rheumatology
DX: Z11.1 Encounter for screening for respiratory tuberculosis (principal)
CPT/HCPCS: 86580

== ENCOUNTER → 2023-04-12 14:04 | Outpatient (CLI) | payer MEDICARE, SELFPAY ==
--- NOTE | 2023-04-12 14:05 | CT_ITS ---
FINAL REPORT CLINICAL HISTORY: 3-month follow-up COMPARISON: December 2022 FINDINGS: Axial images were obtained from the lung apex to the mid abdomen by computed tomography. Coronal reformatted images were obtained. This study was performed with techniques to keep radiation doses as low as reasonably achievable, (ALARA). Individualized dose reduction techniques using automated exposure control or adjustment of mA and/or kV according to the patient's size were employed. There is no axillary adenopathy. There is no hilar or mediastinal adenopathy. Heart size is normal. There is no pericardial or pleural effusion. Limited images of the upper abdomen demonstrate gallstones in a contracted gallbladder. There are moderately advanced changes of chronic pulmonary fibrosis. Honeycombing is particularly evident in the right lung base. There is no superimposed acute infiltrate. IMPRESSION: Stable advanced changes of chronic pulmonary fibrosis. Reviewed, Interpreted and Dictated by Anthony Anand MD Transcribed by Arnaldo Canseco Authenticated and [facility]
== END ==
PROVIDERS: PCP Family Medicine; Visit Provider Internal Medicine Pulmonary Disease
DX: R59.0 Localized enlarged lymph nodes (principal); R91.8 Other nonspecific abnormal finding of lung field
CPT/HCPCS: 71250

== ENCOUNTER 2023-04-19 08:25 | Outpatient (CLI) | payer MEDICARE, SELFPAY ==
[2023-04-19] VITALS (18 sets, daily range): BP systolic 104–147; BP diastolic 62–88; PULSE 63–74; RESP 18; TEMP 36.8–36.9; O2SAT 98; BMI 20.3
[2023-04-19 08:51] LABS: Basophils % 0.2 % (0.1-2.0); Eosinophils # 0.2 K/mm3 (0.0-0.4); Eosinophils % 1.9 % (0.1-12.0); Hematocrit 40.6 % (42.0-52.0); Hemoglobin 12.6 g/dL (14.1-18.0); Lymphocytes # 0.8 K/mm3 (0.7-4.5); Lymphocytes % 6.6 % (10-50); Mean Corpuscular Hemoglobin 26.4 pg (27.0-31.2); Mean Corpuscular Volume 85.3 fl (80-94); Mean Platelet Volume 7.8 fl (7.4-10.4); Monocytes # 0.4 K/mm3 (0.1-1.0); Monocytes % 3.3 % (1.7-9.3); Neutrophils # 10.1 K/mm3 (1.8-7.8); Platelet Count 61 K/mm3 (142-424); Red Blood Count 4.76 M/mm3 (4.60-6.20); Red Cell Distribution Width 18.7 % (11.5-17.5); White Blood Count 11.5 K/mm3 (4.8-10.8)
[2023-04-19 08:52] LABS: MANUAL DIFFERENTIAL MANUAL DIFFERENTIAL (MANUAL DIFF)
[2023-04-19 09:02] LABS: Eosinophils % 2 % (0-3); Lymphocytes % 5 % (10-50); Monocytes % 1 % (2-9); Neutrophils % 92 % (42-76); Platelet Estimate Moderate Decrease; Total Cells Counted 100
== END 2023-04-19 14:22 | disposition home or self-care (01) ==
LOC: INF 08:26
PROVIDERS: PCP Family Medicine; Visit Provider Internal Medicine Rheumatology
DX: M05.79 Rheumatoid arthritis with rheumatoid factor of multiple sites without organ or systems involvement (principal); M05.10 Rheumatoid lung disease with rheumatoid arthritis of unspecified site
CPT/HCPCS: 85007; 85025; 96413; 96415; J9312

== ENCOUNTER 2023-05-03 08:23 | Outpatient (CLI) | payer MEDICARE, SELFPAY ==
[2023-05-03] VITALS (7 sets, daily range): BP systolic 153–184; BP diastolic 77–89; PULSE 54–60; RESP 18; TEMP 36.4; O2SAT 97; BMI 20.7
[2023-05-03 08:50] LABS: Basophils % 0.3 % (0.1-2.0); Eosinophils # 0.3 K/mm3 (0.0-0.4); Hematocrit 41.1 % (42.0-52.0); Lymphocytes % 7.5 % (10-50); Mean Corpuscular HGB Conc 31.6 g/dL (31.8-35.4); Mean Corpuscular Hemoglobin 26.5 pg (27.0-31.2); Mean Corpuscular Volume 83.9 fl (80-94); Mean Platelet Volume 8.8 fl (7.4-10.4); Monocytes # 0.5 K/mm3 (0.1-1.0); Monocytes % 3.5 % (1.7-9.3); Neutrophils # 11.5 K/mm3 (1.8-7.8); Neutrophils % 86.7 % (37.0-80.0); Platelet Count 108 K/mm3 (142-424); Red Cell Distribution Width 18.1 % (11.5-17.5); White Blood Count 13.2 K/mm3 (4.8-10.8)
[2023-05-03 08:54] LABS: MANUAL DIFFERENTIAL MANUAL DIFFERENTIAL (MANUAL DIFF)
[2023-05-03 09:11] LABS: Lymphocytes % 11 % (10-50); Neutrophils % 89 % (42-76); Total Cells Counted 100
[2023-05-03 09:12] LABS: Platelet Estimate Slight Decrease; RBC Morphology Normal
== END 2023-05-03 12:55 | disposition home or self-care (01) ==
LOC: INF 08:24
PROVIDERS: PCP Family Medicine; Visit Provider Internal Medicine Rheumatology
DX: M05.79 Rheumatoid arthritis with rheumatoid factor of multiple sites without organ or systems involvement (principal); M05.10 Rheumatoid lung disease with rheumatoid arthritis of unspecified site
CPT/HCPCS: 85007; 85025; 96413; 96415; J9312

== ENCOUNTER → 2023-06-14 10:16 | Outpatient (CLI) | payer MEDICARE, SELFPAY ==
[2023-06-14 11:19] LABS: Basophils % 0.4 % (0.1-2.0); Eosinophils # 0.4 K/mm3 (0.0-0.4); Eosinophils % 4.1 % (0.1-12.0); Hematocrit 39.8 % (42.0-52.0); Hemoglobin 12.3 g/dL (14.1-18.0); Lymphocytes # 1.2 K/mm3 (0.7-4.5); Mean Corpuscular HGB Conc 30.9 g/dL (31.8-35.4); Mean Corpuscular Hemoglobin 26.6 pg (27.0-31.2); Mean Corpuscular Volume 86.1 fl (80-94); Mean Platelet Volume 10.1 fl (7.4-10.4); Monocytes # 0.4 K/mm3 (0.1-1.0); Monocytes % 3.9 % (1.7-9.3); Neutrophils % 79.7 % (37.0-80.0); Platelet Count 178 K/mm3 (142-424); Red Blood Count 4.63 M/mm3 (4.60-6.20); Red Cell Distribution Width 15.2 % (11.5-17.5); White Blood Count 10.1 K/mm3 (4.8-10.8)
== END ==
PROVIDERS: PCP Family Medicine; Visit Provider Internal Medicine Rheumatology
DX: D69.6 Thrombocytopenia, unspecified (principal)
CPT/HCPCS: 36415; 85025

== ENCOUNTER → 2023-07-19 08:00 | Outpatient (CLI) | payer MEDICARE, SELFPAY ==
--- NOTE | 2023-07-19 08:48 | PC.NURSE ---
Patient here for PFT and 6 Minute Walk Test. Walk test completed Pt tolerated well. PFT attempted Pt unable to breathe through filter without coughing and becoming very SOB. FVC attempted several times Pt became tearful and seemed to be almost fearful. PFT aborted. Spoke to Dr. Best's RT Kenzie she is aware Pt due for an appointment to follow up.
== END ==
PROVIDERS: PCP Family Medicine; Visit Provider Internal Medicine Pulmonary Disease
DX: R06.09 Other forms of dyspnea (principal)
CPT/HCPCS: 94618

== ENCOUNTER → 2023-10-19 12:51 | Outpatient (CLI) | payer MEDICARE, SELFPAY ==
[2023-10-19 13:40] VITALS: PULSE 67; PULSE 70
--- NOTE | 2023-10-19 13:57 | CT_ITS ---
FINAL REPORT TECHNIQUE: Axial images were obtained from the lung apex to the mid abdomen by computed tomography. Coronal reformatted images were obtained. This study was performed with techniques to keep radiation doses as low as reasonably achievable, (ALARA). Individualized dose reduction techniques using automated exposure control or adjustment of mA and/or kV according to the patient''s size were employed. CLINICAL HISTORY: F/U Patient states he had pneumonia the first part of 2022. He states he has had shortness of breath since having double pneumonia. COMPARISON: 04/12/2023 FINDINGS: There is no axillary adenopathy. There are multiple mildly enlarged mediastinal nodes which are stable. There is a small hiatal hernia. Heart size is normal. There is no pericardial or pleural effusion. Again noted is moderate to severe predominantly peripheral interstitial fibrosis with areas of honeycombing in the lung bases. Multifocal pulmonary opacities are stable. There is no new pulmonary abnormality identified. There is mild right posterior pleural thickening and pleural calcification. Limited images of the upper abdomen demonstrate gallstones in the gallbladder. IMPRESSION: Moderate to severe interstitial fibrosis again noted. Cholelithiasis. Reviewed, Interpreted and Dictated by Steven Wilkerson III, MD Transcribed by Adore Santos Authenticated and [facility]
== END ==
PROVIDERS: PCP Family Medicine; Visit Provider Internal Medicine Pulmonary Disease
DX: R91.8 Other nonspecific abnormal finding of lung field (principal); R06.09 Other forms of dyspnea
CPT/HCPCS: 71250; 94060; 94640; 94726; 94729

== ENCOUNTER 2023-11-02 07:57 | Outpatient (CLI) | payer MEDICARE, SELFPAY ==
[2023-11-02] VITALS (13 sets, daily range): BP systolic 133–155; BP diastolic 67–79; PULSE 58–71; RESP 18; TEMP 36.6; O2SAT 97; BMI 23.4
[2023-11-02] MEDS: ACETAMINOPHEN 325MG TAB 650 MG PO (08:30)
[2023-11-02] MEDS: diphenhydrAMINE 50MG CAPSULE 50 MG PO (08:30)
[2023-11-02] MEDS: METHYLPREDNISOLONE SOD SUCC 125MG VIAL 125 MG IV (08:30)
[2023-11-02 08:32] LABS: Basophils % 0.4 % (0.1-2.0); Eosinophils # 0.3 K/mm3 (0.0-0.4); Eosinophils % 3.8 % (0.1-12.0); Hematocrit 42.8 % (42.0-52.0); Hemoglobin 14.3 g/dL (14.1-18.0); Lymphocytes % 12.2 % (10-50); Mean Corpuscular HGB Conc 33.3 g/dL (31.8-35.4); Mean Corpuscular Hemoglobin 28.3 pg (27.0-31.2); Mean Corpuscular Volume 84.9 fl (80-94); Mean Platelet Volume 7.5 fl (7.4-10.4); Monocytes # 0.5 K/mm3 (0.1-1.0); Monocytes % 5.4 % (1.7-9.3); Neutrophils # 6.4 K/mm3 (1.8-7.8); Neutrophils % 78.2 % (37.0-80.0); Platelet Count 151 K/mm3 (142-424); Red Blood Count 5.05 M/mm3 (4.60-6.20); Red Cell Distribution Width 15.7 % (11.5-17.5); White Blood Count 8.2 K/mm3 (4.8-10.8)
[2023-11-02] MEDS: RITUXIMAB 1,000 MG in 0.9 % SODIUM CHLORIDE 400 ML 25 MG IV (08:55)
[2023-11-02] MEDS: 0.9 % SODIUM CHLORIDE 50 ML 25 ML IV (08:57)
== END 2023-11-02 12:10 | disposition home or self-care (01) ==
LOC: INF 07:58
PROVIDERS: PCP Family Medicine; Visit Provider Internal Medicine Rheumatology
DX: M05.79 Rheumatoid arthritis with rheumatoid factor of multiple sites without organ or systems involvement; M05.10 Rheumatoid lung disease with rheumatoid arthritis of unspecified site; Z51.12 Encounter for antineoplastic immunotherapy
CPT/HCPCS: 85025; 96413; 96415; J9312

== ENCOUNTER 2023-11-15 08:13 | Outpatient (CLI) | payer MEDICARE, SELFPAY ==
[2023-11-15] VITALS (8 sets, daily range): BP systolic 144–189; BP diastolic 70–85; PULSE 54–64; RESP 18; TEMP 36.9; O2SAT 97; BMI 23.4
[2023-11-15] MEDS: diphenhydrAMINE 50MG CAPSULE 50 MG PO (08:38)
[2023-11-15] MEDS: ACETAMINOPHEN 325MG TAB 650 MG PO (08:39)
[2023-11-15] MEDS: 0.9 % SODIUM CHLORIDE 50 ML 25 ML IV (08:39)
[2023-11-15] MEDS: METHYLPREDNISOLONE SOD SUCC 125MG VIAL 125 MG IV (08:40)
[2023-11-15 08:45] LABS: Basophils # 0.1 K/mm3 (0-0.2); Basophils % 0.5 % (0.1-2.0); Eosinophils # 0.3 K/mm3 (0.0-0.4); Eosinophils % 2.7 % (0.1-12.0); Hematocrit 41.6 % (42.0-52.0); Hemoglobin 13.7 g/dL (14.1-18.0); Lymphocytes # 1.2 K/mm3 (0.7-4.5); Lymphocytes % 11.2 % (10-50); Mean Corpuscular HGB Conc 32.9 g/dL (31.8-35.4); Mean Corpuscular Hemoglobin 28.4 pg (27.0-31.2); Mean Corpuscular Volume 86.4 fl (80-94); Mean Platelet Volume 8.1 fl (7.4-10.4); Monocytes # 0.6 K/mm3 (0.1-1.0); Monocytes % 5.3 % (1.7-9.3); Neutrophils # 8.9 K/mm3 (1.8-7.8); Neutrophils % 80.4 % (37.0-80.0); Platelet Count 200 K/mm3 (142-424); Red Blood Count 4.81 M/mm3 (4.60-6.20); Red Cell Distribution Width 15.9 % (11.5-17.5)
[2023-11-15] MEDS: RITUXIMAB 1,000 MG in 0.9 % SODIUM CHLORIDE 400 ML 25 MG IV (09:19)
== END 2023-11-15 13:00 | disposition home or self-care (01) ==
LOC: INF 08:16
PROVIDERS: PCP Family Medicine; Visit Provider Internal Medicine Rheumatology
DX: M05.79 Rheumatoid arthritis with rheumatoid factor of multiple sites without organ or systems involvement (principal); M05.10 Rheumatoid lung disease with rheumatoid arthritis of unspecified site; Z51.12 Encounter for antineoplastic immunotherapy
CPT/HCPCS: 85025; 96413; 96415; J9312

== ENCOUNTER 2024-04-24 07:42 | Outpatient (CLI) | payer MEDICARE, SELFPAY ==
[2024-04-24 08:40] VITALS: PULSE 79; PULSE 82
[2024-04-24] MEDS: ALBUTEROL 0.083% 2.5 MG/3 ML NEB IH (08:40)
== END 2024-04-24 23:59 | disposition home or self-care (01) ==
LOC: RT 07:43
PROVIDERS: PCP Family Medicine; Visit Provider Internal Medicine Pulmonary Disease
DX: R06.09 Other forms of dyspnea (principal); R05.3 Chronic cough
CPT/HCPCS: 94060; 94640; 94726; 94729; J7613

== ENCOUNTER 2024-05-14 08:24 | Outpatient (CLI) | payer MEDICARE, SELFPAY ==
[2024-05-14] VITALS (8 sets, daily range): BP systolic 129–151; BP diastolic 69–94; PULSE 62–71; RESP 18; TEMP 36.7; O2SAT 97; BMI 20.7
[2024-05-14 09:09] LABS: Basophils # 0.1 K/mm3 (0-0.2); Basophils % 0.7 % (0.1-2.0); Eosinophils # 0.2 K/mm3 (0.0-0.4); Eosinophils % 3.1 % (0.1-12.0); Hematocrit 46.8 % (42.0-52.0); Hemoglobin 15.4 g/dL (14.1-18.0); Lymphocytes # 0.9 K/mm3 (0.7-4.5); Lymphocytes % 14.3 % (10-50); Mean Corpuscular HGB Conc 32.8 g/dL (31.8-35.4); Mean Corpuscular Hemoglobin 28.3 pg (27.0-31.2); Mean Corpuscular Volume 86.3 fl (80-94); Mean Platelet Volume 7.9 fl (7.4-10.4); Monocytes # 0.4 K/mm3 (0.1-1.0); Monocytes % 5.7 % (1.7-9.3); Neutrophils # 4.9 K/mm3 (1.8-7.8); Neutrophils % 76.2 % (37.0-80.0); Platelet Count 166 K/mm3 (142-424); Red Blood Count 5.43 M/mm3 (4.60-6.20); Red Cell Distribution Width 15.3 % (11.5-17.5); White Blood Count 6.4 K/mm3 (4.8-10.8)
[2024-05-14 09:14] LABS: Chloride 103 mmol/L (98-107); Potassium 4.3 mmoL/L (3.5-5.1); Sodium 140 mmol/L (136-145)
[2024-05-14 09:17] LABS: Alanine Aminotransferase 25 U/L (12-78); Albumin Level 4.4 g/dl (3.5-5.0); Albumin/Globulin Ratio 1.3 (1.1-1.8); Alkaline Phosphatase 113 U/L (38-126); Anion Gap 12.3 mEq/L (5-15); Aspartate Amino Transferase 33 U/L (17-59); Bilirubin,Total 0.5 mg/dl (0.2-1.3); Blood Urea Nitrogen 17 mg/dl (9-20); Carbon Dioxide 29 mmol/L (22.0-30.0); Creatinine Clearance Estimated 60 mL/min (50-200); Estimated Glomerular Filt Rate 83 ml/min (>60); GFR (African American) 100 ML/MIN (>60); Globulin 3.4 g/dL (1.3-3.2); Total Protein,Serum 7.8 g/dl (6.3-8.2)
[2024-05-14 09:18] LABS: Calcium 9.5 mg/dl (8.4-10.2); Glucose 90 mg/dl (74-100)
== END 2024-05-14 12:50 | disposition home or self-care (01) ==
PROVIDERS: PCP Family Medicine; Visit Provider Internal Medicine Rheumatology
DX: M05.79 Rheumatoid arthritis with rheumatoid factor of multiple sites without organ or systems involvement (principal); M05.10 Rheumatoid lung disease with rheumatoid arthritis of unspecified site; Z79.620 Long term (current) use of immunosuppressive biologic; Z79.52 Long term (current) use of systemic steroids; Z79.899 Other long term (current) drug therapy
CPT/HCPCS: 80053; 85025; 96413; 96415; J2919; J9312

== ENCOUNTER 2024-05-28 08:22 | Outpatient (CLI) | payer MEDICARE, SELFPAY ==
[2024-05-28] VITALS (7 sets, daily range): BP systolic 135–151; BP diastolic 64–84; PULSE 53–68; RESP 18; TEMP 36.7; O2SAT 97; BMI 20.7
[2024-05-28 08:43] LABS: Basophils # 0.1 K/mm3 (0-0.2); Basophils % 0.8 % (0.1-2.0); Eosinophils # 0.2 K/mm3 (0.0-0.4); Eosinophils % 2.6 % (0.1-12.0); Hemoglobin 14.2 g/dL (14.1-18.0); Lymphocytes % 11.7 % (10-50); Mean Corpuscular HGB Conc 32.4 g/dL (31.8-35.4); Mean Corpuscular Hemoglobin 28.3 pg (27.0-31.2); Mean Corpuscular Volume 87.4 fl (80-94); Mean Platelet Volume 7.7 fl (7.4-10.4); Monocytes # 0.5 K/mm3 (0.1-1.0); Monocytes % 5.3 % (1.7-9.3); Neutrophils # 6.9 K/mm3 (1.8-7.8); Neutrophils % 79.6 % (37.0-80.0); Platelet Count 227 K/mm3 (142-424); Red Blood Count 5.03 M/mm3 (4.60-6.20); Red Cell Distribution Width 15.2 % (11.5-17.5); White Blood Count 8.7 K/mm3 (4.8-10.8)
[2024-05-28 08:44] LABS: Chloride 105 mmol/L (98-107); Potassium 4.5 mmoL/L (3.5-5.1); Sodium 140 mmol/L (136-145)
[2024-05-28 08:47] LABS: Alanine Aminotransferase 23 U/L (12-78); Albumin Level 4.2 g/dl (3.5-5.0); Albumin/Globulin Ratio 1.2 (1.1-1.8); Alkaline Phosphatase 99 U/L (38-126); Anion Gap 11.5 mEq/L (5-15); Aspartate Amino Transferase 31 U/L (17-59); Bilirubin,Total 0.6 mg/dl (0.2-1.3); Blood Urea Nitrogen 15 mg/dl (9-20); Carbon Dioxide 28 mmol/L (22.0-30.0); Creatinine Clearance Estimated 60 mL/min (50-200); Estimated Glomerular Filt Rate 73 ml/min (>60); GFR (African American) 89 ML/MIN (>60); Globulin 3.4 g/dL (1.3-3.2); Total Protein,Serum 7.6 g/dl (6.3-8.2)
[2024-05-28 08:48] LABS: Calcium 9.3 mg/dl (8.4-10.2); Glucose 89 mg/dl (74-100)
== END 2024-05-28 12:40 | disposition home or self-care (01) ==
LOC: INF 08:23
PROVIDERS: PCP Family Medicine; Visit Provider Internal Medicine Rheumatology
DX: Z51.12 Encounter for antineoplastic immunotherapy (principal); M05.79 Rheumatoid arthritis with rheumatoid factor of multiple sites without organ or systems involvement; M05.10 Rheumatoid lung disease with rheumatoid arthritis of unspecified site; Z79.620 Long term (current) use of immunosuppressive biologic; Z79.52 Long term (current) use of systemic steroids; Z79.899 Other long term (current) drug therapy
CPT/HCPCS: 80053; 85025; 96413; 96415; J2919; J9312

== ENCOUNTER 2024-11-09 10:37 | Outpatient (CLI) | payer MEDICARE, SELFPAY ==
--- NOTE | 2024-11-09 10:37 | CT_ITS ---
FINAL REPORT TECHNIQUE: Axial images were obtained through the chest without contrast. Sagittal and coronal reformatted images are obtained and reviewed. This study was performed with techniques to keep radiation doses as low as reasonably achievable, (ALARA). Individualized dose reduction techniques using automated exposure control or adjustment of mA and/or kV according to the patient's size were employed. CLINICAL HISTORY: nodule F/U COMPARISON: 10/19/2023 FINDINGS: There are a few small scattered mediastinal lymph nodes. Largest AP node measures up to 9 mm. There is a small sliding-type hiatal hernia. The heart size is normal. There is no pericardial or pleural effusion. There is extensive coarse interstitial opacity in the periphery of both lungs with honeycombing at the bases. There is patchy airspace opacity, right greater than left which is entirely stable. There appears to be nodular opacity in the right middle lobe measuring 7 mm well-seen on image 44 of series 2. This is stable since the previous. Limited images of the upper abdomen reveal a large gallstones within a contracted gallbladder. IMPRESSION: Extensive changes of chronic fibrosis with stable gallstones. Reviewed, Interpreted and Dictated by Anthony Anand MD Transcribed by Elizabet Martinez Authenticated and [facility]
== END 2024-11-09 23:59 | disposition home or self-care (01) ==
LOC: RAD 10:37
PROVIDERS: PCP Family Medicine; Visit Provider Internal Medicine Pulmonary Disease
DX: R91.8 Other nonspecific abnormal finding of lung field (principal)
CPT/HCPCS: 71250

== ENCOUNTER 2024-12-03 09:30 | Outpatient (CLI) | payer MEDICARE, SELFPAY ==
[2024-12-03] VITALS (7 sets, daily range): BP systolic 137–183; BP diastolic 77–95; PULSE 53–67; RESP 18; O2SAT 97; BMI 20.7
[2024-12-03] MEDS: diphenhydrAMINE 50MG CAPSULE 50 MG PO (09:47)
[2024-12-03] MEDS: 0.9 % SODIUM CHLORIDE 50 ML 100 ML IV (09:47)
[2024-12-03] MEDS: ACETAMINOPHEN 325MG TAB 650 MG PO (09:48)
[2024-12-03] MEDS: METHYLPREDNISOLONE SOD SUCC 125MG VIAL 125 MG IV (09:49)
[2024-12-03 09:51] LABS: Basophils # 0.1 K/mm3 (0-0.2); Basophils % 0.8 % (0.1-2.0); Eosinophils # 0.3 K/mm3 (0.0-0.4); Hematocrit 42.9 % (42.0-52.0); Hemoglobin 13.7 g/dL (14.1-18.0); Lymphocytes % 12.4 % (10-50); Mean Corpuscular HGB Conc 31.9 g/dL (31.8-35.4); Mean Corpuscular Hemoglobin 27.6 pg (27.0-31.2); Mean Corpuscular Volume 86.3 fl (80-94); Mean Platelet Volume 9.8 fl (7.4-10.4); Monocytes # 0.8 K/mm3 (0.1-1.0); Monocytes % 9.2 % (1.7-9.3); Neutrophils # 6.2 K/mm3 (1.8-7.8); Neutrophils % 74.2 % (37.0-80.0); Platelet Count 157 K/mm3 (142-424); Red Blood Count 4.97 M/mm3 (4.60-6.20); Red Cell Distribution Width 13.8 % (11.5-17.5); White Blood Count 8.3 K/mm3 (4.8-10.8)
[2024-12-03 10:01] LABS: Albumin Level 4.1 g/dl (3.5-5.0); Chloride 108 mmol/L (98-107); Potassium 4.1 mmoL/L (3.5-5.1); Sodium 139 mmol/L (136-145)
[2024-12-03 10:04] LABS: Alanine Aminotransferase 22 U/L (12-78); Albumin/Globulin Ratio 1.5 (1.1-1.8); Alkaline Phosphatase 100 U/L (38-126); Anion Gap 12.1 mEq/L (5-15); Aspartate Amino Transferase 45 U/L (17-59); Bilirubin,Total 0.5 mg/dl (0.2-1.3); Blood Urea Nitrogen 19 mg/dl (9-20); Carbon Dioxide 23 mmol/L (22.0-30.0); Creatinine Clearance Estimated 60 mL/min (50-200); Estimated Glomerular Filt Rate 95 ml/min (>60); GFR (African American) 115 ML/MIN (>60); Globulin 2.7 g/dL (1.3-3.2); Glucose 79 mg/dl (74-100); Total Protein,Serum 6.8 g/dl (6.3-8.2)
[2024-12-03] MEDS: RITUXIMAB 1,000 MG in 0.9 % SODIUM CHLORIDE 400 ML 25 MG IV (10:27)
== END 2024-12-03 13:38 | disposition home or self-care (01) ==
LOC: INF 09:31
PROVIDERS: PCP Family Medicine; Visit Provider Internal Medicine Rheumatology
DX: J84.10 Pulmonary fibrosis, unspecified (principal)
CPT/HCPCS: 80053; 85025; 96365; 96366; J2919; J9312

== ENCOUNTER 2024-12-17 09:04 | Outpatient (CLI) | payer MEDICARE, SELFPAY ==
[2024-12-17] VITALS (8 sets, daily range): BP systolic 123–174; BP diastolic 71–93; PULSE 54–64; RESP 18; TEMP 36.7; O2SAT 95; BMI 20.7
[2024-12-17 09:16] LABS: Basophils # 0.1 K/mm3 (0-0.2); Basophils % 0.6 % (0.1-2.0); Eosinophils # 0.3 K/mm3 (0.0-0.4); Eosinophils % 3.2 % (0.1-12.0); Hematocrit 43.1 % (42.0-52.0); Lymphocytes % 10.4 % (10-50); Mean Corpuscular HGB Conc 32.5 g/dL (31.8-35.4); Mean Corpuscular Hemoglobin 27.7 pg (27.0-31.2); Mean Corpuscular Volume 85.2 fl (80-94); Mean Platelet Volume 9.5 fl (7.4-10.4); Monocytes # 0.7 K/mm3 (0.1-1.0); Neutrophils # 7.5 K/mm3 (1.8-7.8); Neutrophils % 78.4 % (37.0-80.0); Platelet Count 196 K/mm3 (142-424); Red Blood Count 5.06 M/mm3 (4.60-6.20); Red Cell Distribution Width 13.8 % (11.5-17.5); White Blood Count 9.6 K/mm3 (4.8-10.8)
[2024-12-17] MEDS: ACETAMINOPHEN 325MG TAB 650 MG PO (09:25)
[2024-12-17] MEDS: METHYLPREDNISOLONE SOD SUCC 125MG VIAL 125 MG IV (09:25)
[2024-12-17] MEDS: diphenhydrAMINE 50MG CAPSULE 50 MG PO (09:25)
[2024-12-17 09:29] LABS: Alanine Aminotransferase 23 U/L (12-78); Albumin Level 4.3 g/dl (3.5-5.0); Albumin/Globulin Ratio 1.6 (1.1-1.8); Alkaline Phosphatase 99 U/L (38-126); Anion Gap 11.4 mEq/L (5-15); Aspartate Amino Transferase 36 U/L (17-59); Bilirubin,Total 0.5 mg/dl (0.2-1.3); Blood Urea Nitrogen 21 mg/dl (9-20); Calcium 8.8 mg/dl (8.4-10.2); Carbon Dioxide 28 mmol/L (22.0-30.0); Chloride 105 mmol/L (98-107); Creatinine Clearance Estimated 60 mL/min (50-200); Estimated Glomerular Filt Rate 83 ml/min (>60); GFR (African American) 100 ML/MIN (>60); Globulin 2.7 g/dL (1.3-3.2); Glucose 84 mg/dl (74-100); Potassium 4.4 mmoL/L (3.5-5.1); Sodium 140 mmol/L (136-145)
[2024-12-17] MEDS: RITUXIMAB 1,000 MG in 0.9 % SODIUM CHLORIDE 400 ML 25 MG IV (09:52)
== END 2024-12-17 13:20 | disposition home or self-care (01) ==
LOC: INF 09:04
PROVIDERS: PCP Family Medicine; Visit Provider Internal Medicine Rheumatology
DX: J84.9 Interstitial pulmonary disease, unspecified (principal)
CPT/HCPCS: 80053; 85025; 96413; 96415; J2919; J9312

== ENCOUNTER 2025-05-16 09:50 | Outpatient (CLI) | payer MEDICARE, SELFPAY ==
--- OUTSIDE RECORDS SUMMARY | 2025-04-15 13:20 | XMS_ITS | Encounter Summary ---
Author Organization Healthcare Address [address] 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 Name Role Phone Brandon Bennett MD Primary Care Provider [phone] Reason for Referral * Consultation (Routine) - Authorized Specialty Diagnoses / Procedures Referred By Bree parra Referred To Contact Occupational Therapy Diagnoses Deformity of hand, unspecified laterality Mary Lee PA [address] [facility] [address] [place] [address] Phone: tel: fax: Referral ID Status Reason Start Date Expiration Date Visits Requested Visits Authorized [id number] Authorized Specialty Services Required 04/15/2025 10/15/2026 1 1 Reason for Visit * Reason Comments Seropositive rheumatoid arthritis of mul tiple sites (CMS/HC Encounter Details Date Type Department Care Team (Latest Contact Info) Description 04/15/2025 1:20 PM [address]T Office Visit [facility] [address] [place] [address] Talat Powell MD [address] [facility] [address] [place] [address] Seropositive rheumatoid arthritis of multiple sites (CMS/HCC); Rheumatoid lung disease (CMS/HCC); Thrombocytopenia (CMS/HCC); High risk medication use; Primary osteoarthritis involving multiple joints; Acquired deformity of both feet; Deformity of hand, unspecified laterality Social History Tobacco Use Types Packs/Day Years Used Date Smoking Tobacco: Former Cigarettes 0.5 30 1 995 - 2016 Smokeless Tobacco: Never Tobacco Cessation:Counseling Given: Not Answered Alcohol Use Standard Drinks/Week Comments Not Currently 0 (1 standard drink = 0.6 oz pur e alcohol) PHQ-2 Answer Date Recorded Patient Health Questionnaire-2 Score 0 04/15/2025 PHQ-9 Answer Date Recorded Patient Health Questionnaire-9 Score 0 04/15/2025 PHQ-2A Answer Date Recorded Depression Risk 0 03/23/2023 Sex and Gender Information Value Date Recorded Sex Assigned at Not on file Legal Sex Male 12:31 PM EDT Gender Identity Not on file Sexual Orientation Not on file documented as of this encounter Last Filed Vital Signs Vital Sign Reading Time Taken Comments Blood Pressure 145/74 04/15/2025 2:06 PM EDT Pulse 82 04/15/2025 1:05 PM EDT Temperature 37.1 C (98.8 F) 04/15/2025 1:05 PM EDT Respiratory Rate 16 04/15/2025 1:05 PM EDT Oxygen Saturation 94% 04/15/2025 1:05 PM EDT Inhaled Oxygen Concentration - - Weight 72.8 kg (160 lb 7.9 oz) 04/15/2025 1:05 P M EDT Height 176.5 cm (5' 9.5 ) 04/15/2025 1:05 PM EDT Body Mass Index 23.36 04/15/2025 1:05 PM EDT documented in this encounter Functional Status * Over the past 2 weeks, how often have you been bothered by any of the following problems? Question Answer Date of Assessment Author Little interest or pleasure in doing things Not at all 04/15/2025 1:09 PM EDT Afua Kennedy Feeling down, depressed, or hopeless Not at all 04/15/2025 1:09 PM EDT Afua Kennedy Patient Health Questionnaire -2 Score 0 04/15/2025 1:09 PM EDT Afua Kennedy * Question Answer Date of Assessment Author Trouble falling or staying a sleep, or sleeping too much Not at all 04/15/2025 1:09 PM EDT Afua Kennedy Feeling tired or having renzo le energy Not at all 04/15/2025 1:09 PM EDT Afua Kennedy Poor appetite or overeating Not at all 04/15/2025 1: 09 PM EDT Afua Kennedy Feeling bad about yourself - or that you are a failure or have let yourself or your family down Not at all 04/15/2025 1:09 PM EDT Afua Kennedy Trouble concentrating on thi ngs, such as reading the newspaper or watching television Not at all 04/15/2025 1:09 PM EDT Afua Kennedy Moving or speaking so slowly that other people could have noticed? Or the opposite - being so fidgety or restless that you have been moving around a lot more than usual. Not at all 04/15/2025 1:09 PM EDT Afua Pina Thoughts that you would be b colin off or hurting yourself in some way Not at all 04/15/2025 1:09 PM EDT Afua Kennedy Patient Health Questionnaire -9 Score 0 04/15/2025 1:09 PM EDT Afua Kennedy * If you checked off any problems on this questionnaire so far, Question Answer Date of Assessment Author How difficult have these problems made it for you to do your work, take care of things at home, or get along with other people? Not difficult at all 04/15/2025 1:09 PM Afua Caldwell documented as of this encounter Miscellaneous Notes * Progress Notes - Mary Lee PA - 04/15/2025 1:20 PM EDT Subjective Patient ID: Behzad Daily is a 75 y.o. male. Chief Complaint Patient presents with Seropositive rheumatoid arthritis of multiple sites ([facility]/HC HPI 75 year old male with past medical history significant for seropositive rheumatoid arthritis, osteoarthritis of multiple sites, Interstitial lung disease, and COPD is here for follow up. Last seen by me on 05/2024. Past summary : Manifested as symmetrical polyarthritis involving hands, wrist, shoulders, knees andfeet around . 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 Initially treatedwith methotrexate and other oral medications. They were discontinued due to patient's reported GI intolerance. He then continued on as needed motrin and Celebrex. He had several injections in the knee and eventually the benefit wore off. Around 2021, he received PT for his joint pain without improvement. He developed progressively worsening cough, dyspnea, and wheezing. He was empirically treated with two rounds of antibiotics for 4-5 weeks with minimal improvement. Her imaging, PFT suggested ILD and COPD. Autoimmune workup ordered by her radiology rn Leo Best. It showed CCP >250, RF >650. DIONI 75 ( <82), C-ANCA >1:640, negative TANMAY with reflex, atypical P ANCA, P-ANCA. ESR 81. CBC, CMP within normal limits. Quantiferon negative. Her radiology rn is planning repeat CT chest, initiated on one week steroid 40 mg daily. He was evaluated by Dr Hudson on 03/04/23, additional serologies ordered, and given another one month steroid taper. Labs ( 03/04/23) :TANMAY homogenous 1:160. CRP 15.6, ESR 60. C3, C4 normal. Marcial, Sm/VP LEGAL AFFAIRS, SSA 52, SSA 60, SSB, SCL 70, anti DNA, MPO, MT-3 negative. Extended myositis panel ( Mary Ann-1, PL 7, PL 12, EJ, OJ, P155/140, TIF 1 gamma, FREDERICK 1, NXP2, NC 2, MDA 5, KU, U3 VP LEGAL AFFAIRS, PM SCL, SRP ) negative. Hepatitis panel negative. Quantiferon indeterminate ( on steroids). CK, aldolase normal. Xray Hand/wrist, Feet showed erosive RA. C spine, shoulders showed significant DJD. CT chest ( 01/06) : Bilateral diffuse with predominant lower lobe interstitial changes with upper lobe emphysema. Ground glass opacities within those interstitial changes. Mediastinal lymphadenopathy.No hilar lymphadenopathy. Lower lobe interstitial changes also was noted on CT in 02/2019 and 07/2020and appears significantly worsened. Bronchoscopy, BAL, TBLB, EBUS FNA negative for infectious, malignancy workup. No granuloma. BAL < 10 WBC. Biopsy showed staph epidermidis likely contaminant. PFT (03/06) : Severe obstructive lung disease with FEV1 38%. Moderate restriction noted with TLC 45%predicted. No significant air trapping. Severely reduced DLCO 31% predicted. 6MWT : Walked total 255 feet, and no significant hypoxia. He had significant improvement in his joint pain, swelling, and stiffness ( more than 80%) with rituxan, leflunomide, and plaquenil. Dyspnea improved, and PFT/HRCT at his pulmonology office all stable. His last Rituxan infusion was in November & May 2024. So far he had his pneumonia, shingles, COVID vaccines. Interim history : He continues to feel better without active joint or pulmonary disease symptoms. He suffers from bilateral feet deformities, and has hard time walking due to deformities. Today (04/15/2025): He notes deformity in his hands and legs. He will take ibuprofen and tylenol prn for his back pain. His next rituximab infusion is in June 2025, last one in November 2024. Morning stiffness x 2 hours . He saw podiatry after his previous visit and does daily exercises. He sees pulmonology on 05/19/2025, he goes to [facility]. He will do PFTs then. The following portions of the chart were reviewed this encounter and updated as appropriate: Family history : Reviewed, non contributory Social history : No drug use. 30 year smoking history. Quit in 2014. Review of Systems Constitutional: Negative for chills and fever. HENT: Positive for rhinorrhea. Negative for mouth sores. Respiratory: Positive for shortness of breath. Negative for cough. Cardiovascular: Negative for chest pain. Musculoskeletal: Positive for arthralgias and back pain. Negative for joint swelling and neck pain. Skin: Negative for rash. Current Outpatient Medications on File Prior to Visit Medication Sig Dispense Refill albuterol 108 (90 Base) MCG/ACT inhaler Inhale 2 puffs 1 (one) time each day if needed. cholecalciferol (Vitamin D3) 25 MCG (1000 UT) tablet Take 1 tablet (1,000 Units) by mouth 1 (one) time each day. fluticasone (Flonase) 50 MCG/ACT nasal spray USE 1 SPRAY(S) IN EACH NOSTRIL ONCE DAILY omeprazole (PriLOSEC) [address] capsule Take 1 capsule by mouth daily. [DISCONTINUED] hydroxychloroquine (Plaquenil) 200 MG tablet Take 1.5 tablets (300 mg) by mouth 1 (one) time each day. 135 tablet 1 [DISCONTINUED] leflunomide (Arava) 10 MG tablet TAKE 1 TABLET BY MOUTH EVERY OTHER DAY 45 tablet 0 No current facility-administered medications on file prior to visit. Past Medical History: Diagnosis Date GERD (gastroesophageal reflux disease) Rheumatoid arthritis ([facility]) Family History Family history unknown: Yes Social History Socioeconomic History Marital status: Spouse name: Not on file Number of children: Not on file Years of education: Not on file Highest education level: Not on file Occupational History Not on file Tobacco Use Smoking status: Former Current packs/day: 0.00 Average packs/day: 0.5 packs/day for 30.0 years (15.0 ttl pk-yrs) Types: Cigarettes Start date: 1994 Quit date: 2017 Years since quittin.4 Smokeless tobacco: Never Vaping Use Vaping status: Never Used Substance and Sexual Activity Alcohol use: Not Currently Drug use: Never Sexual activity: Not on file Other Topics Concern Not on file Social History Narrative Not on file Social Drivers of Health Financial Resource Strain: Not on file Food Insecurity: Not on file Transportation Needs: Not on file Physical Activity: Not on file Stress: Not on file Social Connections: Unknown (08/25/2023) Received from [facility] Family and Community Support Help with Day-to-Day Activities: Not on file Lonely or Isolated: Not on file Intimate Partner Violence: Unknown (08/25/2023) Received from [facility] Abuse Screen Unsafe at Home or Work/School: Not on file Feels Threatened by Someone?: Not on file Does Anyone Keep You from Contacting Others or Doint Things Outside the Home?: Not on file Physical Sign of Abuse Present: Not on file Housing Stability: Unknown (08/25/2023) Received from [facility] Housing Stability Current Living Arrangements: Not on file Potentially Unsafe Housing Conditions: Not on file Objective Physical Exam Constitutional: General: He is not in acute distress. Appearance: Normal appearance. He is well-developed. He is not diaphoretic. HENT: Head: Normocephalic and atraumatic. Cardiovascular: Rate and Rhythm: Normal rate and regular rhythm. Heart sounds: Normal heart sounds. No murmur heard. Pulmonary: Effort: Pulmonary effort is normal. No respiratory distress. Breath sounds: Rales present. Comments: Diminished breath sounds at bases. Bilateral rales on exam. Abdominal: General: Bowel sounds are normal. Musculoskeletal: Cervical back: Normal range of motion and neck supple. Comments: Bilateral ( Right >> left) MCP 2nd to 4th chronic synovial thickening, with mild ulnar deviation, subluxation. CMC squaring. No acute synovitis. Crepitus noted on left knee. Limited ROM of shoulders, wrists, and hands. Skin: General: Skin is warm and dry. Neurological: Mental Status: He is alert and oriented to person, place, and time. Psychiatric: Mood and Affect: Mood normal. Behavior: Behavior normal. Thought Content: Thought content normal. Judgment: Judgment normal. Imaging : Hands/wrists: Significant MCP joint subluxation, moderate joint space narrowing, and erosions are present with periarticular soft tissue swelling. Carpal metacarpal and carpal carpal joint erosions are present. Thumb CMC joint arthritis is present on the left greater than the right. Some PIP joint space narrowing with erosions present. DIP joint arthritis is mild to moderate. Radiocarpal arthritis does have some erosions and subchondral cysts with joint effusion. Feet: MTP joint subluxation, hallux valgus deformity with MTP joint metatarsal head and proximal phalanx base erosions. MTP joint space narrowing. Midfoot joint space narrowing is present with erosions. Calcaneal enthesophytes. MCP periarticular soft tissue swelling. Plantar calcaneal enthesophytes. Cervical spine: No prevertebral soft tissue swelling. Retrolisthesis of C4 on C5. Mild C5-6 discogenic disease. Minimal facet arthropathy. No fracture or dislocation identified. No subluxation of theatlantodental joint is identified. Diffuse peripheral lung scarring is present suggestive of rheumatoid related lung disease. The patient is edentulous. Shoulders: Mild glenohumeral joint space narrowing. Mild to moderate acromioclavicular joint arthritis. No bony neuroforaminal narrowing of the cervical spine is identified. Peripheral lung scarring is present without pleural effusion or pneumothorax. No fracture, subluxation, or dislocation identified. No radiopaque foreign body is seen Assessment/Plan 75 year old male with past medical history significant for seropositive rheumatoid arthritis, osteoarthritis of multiple sites, Interstitial lung disease, and COPD is here for follow up. Last seen byme on 05/2024. Diagnoses and all orders for this visit: 1. Seropositive rheumatoid arthritis of multiple sites (CMS/HCC) Disease onset 2016, Treatment initiated in 2022. RF, CCP high titers. Xray showing erosive disease in hands, feet. Inflammatory markers ESR, CRP remain elevated. Failure/intolerance to methotrexate. Received first three cycles of rituxan in 04/2023 & 11/05 & 04/2024. On leflunomide 10 mg every other day, and plaquenil. Off steroids for months. His most recent infusion was in 11/2024, due next in 06/2025. TJC 0, SJC 0 CDAI 0 Low disease activity. 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 - Will continue Rituxan every 6 months, takes 10 mg leflunomide every other day and 1.5 tablets of Plaquenil daily - leflunomide (Arava) 10 MG tablet; Take 1 tablet by mouth every other day. Dispense: 45 tablet; Refill: 1 - hydroxychloroquine (Plaquenil) 200 MG tablet; Take 1.5 tablets by mouth daily. Dispense: 135 tablet; Refill: 1 2. Rheumatoid lung disease (CMS/HCC) CT chest showed UIP pattern. Has bilateral rales on exam. PFT (03/06) : Severe obstructive lung disease with FEV1 38%. Moderate restriction noted with TLC 45%predicted. No significant air trapping. Severely reduced DLCO 31% predicted. 6MWT : Walked total 255 feet, and no significant hypoxia. Most recent PFT/CT stable disease. He also had significant clinical improvement with treatment. Pulmonology on 05/19/2025 in [place]. Crackles noted on exam. - Will continue Rituxan + Leflunomide and plaquenil along with as needed steroids. 3. Thrombocytopenia (CMS/HCC) Went down to 61 and then normalized Likely Leflunomide induced. After reducing the dose to 10 mg every other day, improved. -Continue on 10 mg leflunomide every other day 4. High risk medication use He had Pneumonia vaccines, COVID vaccines and shingles vaccine Recommended to get Flu vaccine 2-4 weeks before his next rituxan infusion. Quantiferon indeterminate from steroid, and hepatitis panel negative. CBC & CMP WNL 05/25/24 Check IG profile annually - Comprehensive Metabolic Panel, Plasma; Future - CBC and Differential; Future - C-Reactive Protein, Plasma; Future - Sedimentation Rate, Automated; Future - IG Profile; Future 5. Primary & secondary osteoarthritis involving multiple joints He has primary and secondary OA in hands, knee, hip, spine, feet. Xrays reviewed Doing okay with tylenol and ibuprofen prn, tries to not takes thesr 6. Acquired deformity of both feet Has acquired severe deformed joints in feet, causing gait difficulties. He has seen podiatry since 05/2024 and was given daily exercises Continue to do daily exercises 7. Deformity of hand, unspecified laterality Erosive hand changes noted on XR and seen in clinic Referral to Hand Therapy for conservative measures to help hand function - Ambulatory referral to Hand Therapy; Future RTC in 6 months The patient was counseled about diagnostic results, instruction for management, risk factors reduction, prognosis, compliance with visits and treatment, risks and benefits of treatments options. Prior notes (by external physicians) and results were reviewed by me with independent interpretation of labs and imaging. My note will be sent to PCP and other consulting physicians. Cosigned by Talat Powell MD at 04/15/2025 2:09 PM EDT Associated attestation - Talat Powell MD - 04/15/2025 2:09 PM EDT Seropositive deforming erosive RA, secondary OA, UIP-ILD is here for follow up. Subjectively his ILD is stable, Objectively his PFT/CT stable. He has upcoming follow up with Pulmonology in May. He has no active joint swelling or tenderness. He has limited ROM in hands from prior damage. Will referhim to Hand therapy. Will get monitoring labs, and renew his therapy plan, oral medications. I saw and evaluated the patient with Mary Lee APRN. I discussed the case with Mary Lee APRN and agree with the findings and plan as documented. The patient was counseled about diagnostic results, instruction for management, risk factors reduction, prognosis, compliance with visits and treatment, risks and benefits of treatments options. Prior notes (by external physicians) and results were reviewed by me with independent interpretation of labs and imaging. My note will be sent to PCP and other consulting physicians. documented in this encounter Plan of Treatment Upcoming Encounters Date Type Department Care Team (Late st Contact Info) Description 01/20/2026 4:10 PM EDT Office Visit [facility] Medicine Specialties [address] [place] [address] Talat Powell MD [address] [place] [address] Scheduled Referrals Name Type Priority Associated Diagnoses Orde r Schedule Ambulatory referral to Hand Therapy Outpatient Referral Routine Deformity of hand, unspecified laterality Expected: 04/15/2025 (Approximate), Expires: 10/17/2026 documented as of this encounter Results * (ABNORMAL) IG Profile (04/15/2025 2:22 PM EDT) IGA 253 75 - 400 mg/dL 04/15/2025 4:18 PM EDT [facility] IGG 713(L) 720 - 1,589 mg/dL 04/15/2025 4:18 PM EDT [facility] IGM 112 35 - 225 mg/dL 04/15/2025 4:18 PM EDT [facility] Blood Venous blood specimen / Unknown Venipuncture / Unknown 04/15/2025 2:22 PM EDT 04/15/2025 2:22 PM EDT Mary NAILS LAB BLOOD ORDERABLES Lin l Result Performing Organization Address City/[facility]/ZIP Co de Phone Number [facility] [address] [place] [address] * (ABNORMAL) Sedimentation Rate, Automated (04/15/2025 2:22 PM EDT) Sedimentation Rate 39(H) <20 mm/hr 2024 3:30 PM EDT [facility] Blood Venous blood specimen / Unknown Venipuncture / Unknown 04/15/2025 2:22 PM EDT 04/15/2025 2:22 PM EDT Mary NAILS LAB BLOOD ORDERABLES Lin l Result [facility] [address] [place] [address] * (ABNORMAL) C-Reactive Protein, Plasma (04/15/2025 2:22 PM EDT) CRP, Plasma 32.0(H) <=8.0 mg/L 04/15/2025 4:18 PM EDT [facility] Blood Venous blood specimen / Unknown Venipuncture / Unknown 04/15/2025 2:22 PM EDT 04/15/2025 2:22 PM EDT Narrative [facility] - 04/15/2025 4:18 PM EDT This CRP test is appropriate for assessment of infection, systemic inflammation and/or tissue injury. To assess cardiovascular disease risk order high sensitivity CRP (CRPH). us Mary NAILS LAB BLOOD ORDERABLES Lin oliva Result [facility] [address] [place] [address] * (ABNORMAL) CBC and Differential (04/15/2025 2:22 PM EDT) Pathologist [facility] WBC Count 8.93 3.70 - 10.30 10*3/uL LAB HEMATOLOGY METHOD 04/15/2025 3:14 PM EDT [facility] RBC Count 5.11 4.60 - 6.10 10*6/uL LAB HEMATOLOGY METHOD 04/15/2025 3:14 PM EDT [facility] HGB 13.8 13.7 - 17.5 g/dL LAB HEMATOLOGY METHOD 04/15/2025 3:14 PM EDT [facility] HCT 43.0 40.0 - 51.0 % LAB HEMATOLOGY METHOD 04/15/2025 3:14 PM EDT [facility] Platelet Count 181 155 - 369 10*3/uL LAB HEMATOLOGY METHOD 04/15/2025 3:14 PM EDT [facility] MCV 84 79 - 98 fL LAB HEMATOLOGY METHOD 04/15/2025 3:14 PM EDT [facility] MCH 27.0 26.0 - 32.0 pg LAB HEMATOLOGY METHOD 04/15/2025 3:14 PM EDT [facility] MCHC 32.1 30.7 - 35.5 g/dL LAB HEMATOLOGY METHOD 04/15/2025 3:14 PM EDT [facility] RDW 13.4 11.5 - 14.5 % LAB HEMATOLOGY METHOD 04/15/2025 3:14 PM EDT [facility] MPV 10.3 8.8 - 12.5 fL LAB HEMATOLOGY METHOD 04/15/2025 3:14 PM EDT [facility] nRBC 0.0 <=0.0 per 100 WBCs LAB HEMATOLOGY METHOD 04/15/2025 3:14 PM EDT [facility] Differential Type Automated LAB HEMATOLOGY METHOD 04/15/2025 3:14 PM EDT [facility] Neutrophils % 81 % LAB HEMATOLOGY METHOD 04/15/2025 3:14 PM EDT [facility] Lymphocytes % 10 % LAB HEMATOLOGY METHOD 04/15/2025 3:14 PM EDT [facility] Monocytes % 6 % LAB HEMATOLOGY METHOD 04/15/2025 3:14 PM EDT [facility] Eosinophils % 2 % LAB HEMATOLOGY METHOD 04/15/2025 3:14 PM EDT [facility] Basophils % 1 % LAB HEMATOLOGY METHOD 04/15/2025 3:14 PM EDT [facility] Immature Granulocytes % 0 % LAB HEMATOLOGY METHOD 04/15/2025 3:14 PM EDT [facility] Neutrophils Absolute 7.24(H) 1.60 - 6.10 10*3/uL LAB HEMATOLOGY METHOD 04/15/2025 3:14 PM EDT [facility] Lymphocytes Absolute 0.93(L) 1.20 - 3.90 10*3/uL LAB HEMATOLOGY METHOD 04/15/2025 3:14 PM EDT [facility] Monocytes Absolute 0.52 0.30 - 0.90 10*3/uL LAB HEMATOLOGY METHOD 04/15/2025 3:14 PM EDT [facility] Eosinophils Absolute 0.16 0.00 - 0.50 10*3/uL LAB HEMATOLOGY METHOD 04/15/2025 3:14 PM EDT [facility] Basophils Absolute 0.05 0.00 - 0.10 10*3/uL LAB HEMATOLOGY METHOD 04/15/2025 3:14 PM EDT [facility] Immature Granulocytes Absolute 0.03 0.00 - 0.06 10*3/uL LAB HEMATOLOGY METHOD 04/15/2025 3:14 PM EDT [facility] Blood Venous blood specimen / Unknown Venipuncture / Unknown 04/15/2025 2:22 PM EDT 04/15/2025 2:22 PM EDT Narrative [facility] - 04/15/2025 3:14 PM EDT Therapeutic decision making should be based on absolute values, rather than percentages. us Mary NAILS LAB BLOOD ORDERABLES Lin hazel Result [facility] [address] [place] [address] * (ABNORMAL) Comprehensive Metabolic Panel, Plasma (04/15/2025 2:22 PM EDT) Glucose, Plasma 103(H) 74 - 99 mg/dL 04/15/2025 4:18 PM EDT [facility] BUN, Plasma 17 8 - 23 mg/dL 04/15/2025 4:18 PM EDT [facility] Creatinine, Plasma 0.82 0.70 - 1.20 mg/dL 04/15/2025 4:18 PM EDT [facility] BUN/Creatinine Ratio 21 04/15/2025 4:18 PM EDT [facility] Sodium, Plasma 141 136 - 145 mmol/L 04/15/2025 4:18 PM EDT [facility] Potassium, Plasma 3.8 3.6 - 4.9 mmol/L 04/15/2025 4:18 PM EDT [facility] Chloride, Plasma 105 97 - 107 mmol/L 04/15/2025 4:18 PM EDT [facility] CO2, Plasma 24 22 - 29 mmol/L 04/15/2025 4:18 PM EDT [facility] Anion Gap 12 6 - 16 mmol/L 04/15/2025 4:18 PM EDT [facility] Total Calcium, Plasma 8.7(L) 8.9 - 10.2 mg/dL 04/15/2025 4:18 PM EDT [facility] Total Protein 7.0 6.3 - 7.9 g/dL 04/15/2025 4:18 PM EDT [facility] Albumin, Plasma 4.0 3.5 - 5.2 g/dL 04/15/2025 4:18 PM EDT [facility] AST, Plasma 29 10 - 50 U/L 04/15/2025 4:18 PM EDT [facility] ALT, Plasma 20 10 - 50 U/L 04/15/2025 4:18 PM EDT [facility] Alkaline Phosphatase, Plasma 107 40 - 115 U/L 04/15/2025 4:18 PM EDT [facility] Total Bilirubin, Plasma 0.3 0.2 - 1.1 mg/dL 04/15/2025 4:18 PM EDT [facility] eGFRcr 92.8 mL/min/1.7 3m*2 04/15/2025 4:18 PM EDT [facility] Comment:Reported eGFRcr in m L/min/1.73m2 is based the CKD-EPI 2020 equation that does not use a race coefficient. 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
--- OUTSIDE RECORDS SUMMARY | 2025-05-16 09:52 | XMS_ITS | Data Portability ---
Author Organization [facility] [place] CLOSED Address [address] [place] [address] Care Team Providers Care Cardiac Cath Lab Manager Name Role Phone NESSA GUSTAFSON Primary Care Provider [phone] Assessment No assessment recorded. Plan of Treatment Reminders Order Date Submit Date Provider Last Modified By Organization Details Last Modified Time Details Appointments None recorded. Lab urinalysis panel, auto 2020 021 [facility], [address], [address], [place], [address], 1 19:41:11 urinalysis , dipstick, auto 2019 020 [facility], [address], [address], [place], [address], 0 11:06:44 urinalysis , dipstick, auto 2018 019 [facility], [address], [address], [place], [address], 9 15:05:46 urinalysis , dipstick, auto 2018 019 [facility], [address], [address], [place], [address], 9 08:31:25 Referral None recorded. Procedures None recorded. Surgeries None recorded. Imaging US, retroperit oneum, limited 2019 020 [email or web address] Radiology [facility], [address] [facility] [address], [place], [address], 0 13:31:37 US, retroperit oneum, limited - Renal US without Bladder. 2018 019 [facility] (Replaced By [facility] [address], [place], [address], 9 19:57:47 Medication Orders None recorded. Patient TargetsNo targets recorded. Patient Instructions Encounter Date Encounter Id Patient Instructions Last Modified By Organization Details Last Modified Time 04/05/2019 [id number] healthy together [email or web address] Not availabl e 04/06/2019 08:31:25 Plan for renal ultrasound to more definitively evaluate cyst. Further recommendations to follow. [email or web address] Not available 04/09/2019 16:00:42 10/04/2019 [id number] learning about healthy weight [email or web address] Not available 10/07/2019 15:05:46 02/19/2021 [id number] Continue to foll ow up yearly with renal ultrasound [email or web address] Not available 02/22/2021 19:41:21 Reason for Referral None Reported. Results Created Date Observation Date Name Description Value Unit Range Abnormal Flag Note LastModifiedBy Organization Detail LastModifiedTime 02/20/2002/19/2021 urina lysis panel , auto Unknown Analyte Clean Catch Not Available [facility] [address], [place], [address], 02/19/2021 13:53:42 02/20/20 21 02/19/2021 urina lysis panel , auto Unknown Analyte Yellow Not Available [facility] [address], [place], [address], 02/19/2021 13:53:42 02/20/20 21 02/19/2021 urina lysis panel , auto Unknown Analyte Clear Not Available [facility] [address], [place], [address], 02/19/2021 13:53:42 02/20/20 21 02/19/2021 urina lysis panel , auto Unknown Analyte 1.020 Not Available [facility] [address], [place], [address], 02/19/2021 13:53:42 02/20/20 21 02/19/2021 urina lysis panel , auto Unknown Analyte 1.003- 1.035 Not Available [facility] [address], [place], [address], 02/19/2021 13:53:42 02/20/20 21 02/19/2021 urina lysis panel , auto Unknown Analyte 6.0 Not Available [facility] [address], [place], [address], 02/19/2021 13:53:42 02/20/20 21 02/19/2021 urina lysis panel , auto Unknown Analyte 5.0-8. 0 Not Available [facility] [address], [place], [address], 02/19/2021 13:53:42 02/20/20 21 02/19/2021 urina lysis panel , auto Unknown Analyte Negati ve Not Available [facility] [address] [place] [address] [address], [place], [address], 02/19/2021 13:53:42 02/20/20 21 02/19/2021 urina lysis panel , auto Unknown Analyte Negati ve Not Available [facility] [address], [place], [address], 02/19/2021 13:53:42 02/20/20 21 02/19/2021 urina lysis panel , auto Unknown Analyte Negati ve Not Available [facility] [address], [place], [address], 02/19/2021 13:53:42 02/20/20 21 02/19/2021 urina lysis panel , auto Unknown Analyte Negati ve Not Available [facility] [address], [place], [address], 02/19/2021 13:53:42 02/20/20 21 02/19/2021 urina lysis panel , auto Unknown Analyte Negati ve Not Available [facility] [address], [place], [address], 02/19/2021 13:53:42 02/20/20 21 02/19/2021 urina lysis panel , auto Unknown Analyte Negati ve Not Available [facility] [address], [place], [address], 02/19/2021 13:53:42 02/20/20 21 02/19/2021 urina lysis panel , auto Unknown Analyte Normal Not Available [facility] [address], [place], [address], 02/19/2021 13:53:42 02/20/20 21 02/19/2021 urina lysis panel , auto Unknown Analyte Normal Not Available [facility] [address], [place], [address], 02/19/2021 13:53:42 02/20/20 21 02/19/2021 urina lysis panel , auto Unknown Analyte Negati ve Not Available [facility] [address], [place], [address], 02/19/2021 13:53:42 02/20/2002/19/2021 urina lysis panel , auto Unknown Analyte Negati ve Not Available [facility] [address], [place], [address], 02/19/2021 13:53:42 02/20/2002/19/2021 urina lysis panel , auto Unknown Analyte 1 mg/dl Not Available [facility] [address], [place], [address], 02/19/2021 13:53:42 02/20/20 21 02/19/2021 urina lysis panel , auto Unknown Analyte Normal 1 mg/dl Not Available [facility] [address], [place], [address], 02/19/2021 13:53:42 02/20/2002/19/2021 urina lysis panel , auto Unknown Analyte Negati ve Not Available [facility] [address], [place], [address], 02/19/2021 13:53:42 02/20/20 21 02/19/2021 urina lysis panel , auto Unknown Analyte Negati ve Not Available [facility] [address], [place], [address], 02/19/2021 13:53:42 02/20/20 21 02/19/2021 urina lysis panel , auto Unknown Analyte Trace Not Available [facility] [address], [place], [address], 02/19/2021 13:53:42 02/20/20 21 02/19/2021 urina lysis panel , auto Unknown Analyte Negati ve Not Available [facility] [address], [place], [address], 02/19/2021 13:53:42 01/31/20 20 01/31/2020 urina lysis , dipst ick, auto Unknown Analyte Yellow Not Available [facility] [address], [place], [address], 01/31/2020 10:59:49 01/31/20 20 01/31/2020 urina lysis , dipst ick, auto Unknown Analyte Clear Not Available [facility] [address], [place], [address], 01/31/2020 10:59:49 01/31/20 20 01/31/2020 urina lysis , dipst ick, auto Unknown Analyte 1.015 Not Available [facility] [address], [place], [address], 01/31/2020 10:59:49 01/31/20 20 01/31/2020 urina lysis , dipst ick, auto Unknown Analyte 1.003 - 1.035 Not Available [facility] [address] [facility] [address], [place], [address], 01/31/2020 10:59:49 01/31/20 20 01/31/2020 urina lysis , dipst ick, auto Unknown Analyte 6.5 Not Available [facility] [address], [place], [address], 01/31/2020 10:59:49 01/31/20 20 01/31/2020 urina lysis , dipst ick, auto Unknown Analyte 5.0 - 8.0 Not Available [facility] [address] [facility] [address], [place], [address], 01/31/2020 10:59:49 01/31/20 20 01/31/2020 urina lysis , dipst ick, auto Unknown Analyte Negati ve Not Available [facility] [address] [facility] [address], [place], [address], 01/31/2020 10:59:49 01/31/20 20 01/31/2020 urina lysis , dipst ick, auto Unknown Analyte Negati ve Not Available [facility] [address] [facility] [address], [place], [address], 01/31/2020 10:59:49 01/31/20 20 01/31/2020 urina lysis , dipst ick, auto Unknown Analyte Negati ve Not Available [facility] [address] [facility] [address], [place], [address], 01/31/2020 10:59:49 01/31/20 20 01/31/2020 urina lysis , dipst ick, auto Unknown Analyte Negati ve Not Available [facility] [address], [place], [address], 01/31/2020 10:59:49 01/31/20 20 01/31/2020 urina lysis , dipst ick, auto Unknown Analyte Negtiv e Not Available [facility] [address], [place], [address], 01/31/2020 10:59:49 01/31/20 20 01/31/2020 urina lysis , dipst ick, auto Unknown Analyte Negati ve - Trace Not Available [facility] [address], [place], [address], 01/31/2020 10:59:49 01/31/20 20 01/31/2020 urina lysis , dipst ick, auto Unknown Analyte Normal Not Available [facility] [address], [place], [address], 01/31/2020 10:59:49 01/31/20 20 01/31/2020 urina lysis , dipst ick, auto Unknown Analyte Normal Not Available [facility] [address], [place], [address], 01/31/2020 10:59:49 01/31/20 20 01/31/2020 urina lysis , dipst ick, auto Unknown Analyte Negati ve Not Available [facility] [address], [place], [address], 01/31/2020 10:59:49 01/31/20 20 01/31/2020 urina lysis , dipst ick, auto Unknown Analyte Negati ve Not Available [facility] [address], [place], [address], 01/31/2020 10:59:49 01/31/20 20 01/31/2020 urina lysis , dipst ick, auto Unknown Analyte Normal Not Available [facility] [address], [place], [address], 01/31/2020 10:59:49 01/31/20 20 01/31/2020 urina lysis , dipst ick, auto Unknown Analyte Normal - 1mg/dl Not Available [facility] [address] [facility] [address], [place], [address], 01/31/2020 10:59:49 01/31/20 20 01/31/2020 urina lysis , dipst ick, auto Unknown Analyte Negati ve Not Available [facility] [address], [place], [address], 01/31/2020 10:59:49 01/31/20 20 01/31/2020 urina lysis , dipst ick, auto Unknown Analyte Negati ve Not Available [facility] [address] [facility] [address], [place], [address], 01/31/2020 10:59:49 01/31/20 20 01/31/2020 urina lysis , dipst ick, auto Unknown Analyte Negati ve Not Available [facility] [address] [facility] [address], [place], [address], 01/31/2020 10:59:49 01/31/20 20 01/31/2020 urina lysis , dipst ick, auto Unknown Analyte Negati ve Not Available [facility] [address], [place], [address], 01/31/2020 10:59:49 01/31/20 20 01/31/2020 urina lysis , dipst ick, auto Unknown Analyte Clean Catch Not Available [facility] [address] [facility] [address], [place], [address], 01/31/2020 10:59:49 01/31/20 20 01/31/2020 urina lysis , dipst ick, auto Unknown Analyte Automa tiffany Not Available [facility] [address], [place], [address], 01/31/2020 10:59:49 04/05/20 19 04/05/2019 urina lysis , dipst ick, auto Unknown Analyte Yellow Not Available [facility] [address], [place], [address], 04/05/2019 14:03:51 04/05/20 19 04/05/2019 urina lysis , dipst ick, auto Unknown Analyte Clear Not Available [facility] [address], [place], [address], 04/05/2019 14:03:51 04/05/20 19 04/05/2019 urina lysis , dipst ick, auto Unknown Analyte 1.025 Not Available [facility] [address] [facility] [address], [place], [address], 04/05/2019 14:03:51 04/05/20 19 04/05/2019 urina lysis , dipst ick, auto Unknown Analyte 1.003 - 1.035 Not Available [facility] [address], [place], [address], 04/05/2019 14:03:51 04/05/20 19 04/05/2019 urina lysis , dipst ick, auto Unknown Analyte 5.0 Not Available [facility] [address], [place], [address], 04/05/2019 14:03:51 04/05/20 19 04/05/2019 urina lysis , dipst ick, auto Unknown Analyte 5.0 - 8.0 Not Available [facility] [address], [place], [address], 04/05/2019 14:03:51 04/05/20 19 04/05/2019 urina lysis , dipst ick, auto Unknown Analyte Negati ve Not Available [facility] [address], [place], [address], 04/05/2019 14:03:51 04/05/20 19 04/05/2019 urina lysis , dipst ick, auto Unknown Analyte Negati ve Not Available [facility] [address], [place], [address], 04/05/2019 14:03:51 04/05/20 19 04/05/2019 urina lysis , dipst ick, auto Unknown Analyte Negati ve Not Available [facility] [address], [place], [address], 04/05/2019 14:03:51 04/05/20 19 04/05/2019 urina lysis , dipst ick, auto Unknown Analyte Negati ve Not Available [facility] [address], [place], [address], 04/05/2019 14:03:51 04/05/20 19 04/05/2019 urina lysis , dipst ick, auto Unknown Analyte Negtiv e Not Available [facility] [address] [facility] [address], [place], [address], 04/05/2019 14:03:51 04/05/20 19 04/05/2019 urina lysis , dipst ick, auto Unknown Analyte Negati ve - Trace Not Available [facility] [address], [place], [address], 04/05/2019 14:03:51 04/05/20 19 04/05/2019 urina lysis , dipst ick, auto Unknown Analyte Normal Not Available [facility] [address], [place], [address], 04/05/2019 14:03:51 04/05/20 19 04/05/2019 urina lysis , dipst ick, auto Unknown Analyte Normal Not Available [facility] [address], [place], [address], 04/05/2019 14:03:51 04/05/20 19 04/05/2019 urina lysis , dipst ick, auto Unknown Analyte Negati ve Not Available [facility] [address], [place], [address], 04/05/2019 14:03:51 04/05/20 19 04/05/2019 urina lysis , dipst ick, auto Unknown Analyte Negati ve Not Available [facility] [address], [place], [address], 04/05/2019 14:03:51 04/05/20 19 04/05/2019 urina lysis , dipst ick, auto Unknown Analyte 1 mg/dl Not Available [facility] [address], [place], [address], 04/05/2019 14:03:51 04/05/20 19 04/05/2019 urina lysis , dipst ick, auto Unknown Analyte Normal - 1mg/dl Not Available [facility] [address], [place], [address], 04/05/2019 14:03:51 04/05/20 19 04/05/2019 urina lysis , dipst ick, auto Unknown Analyte Negati ve Not Available [facility] [address], [place], [address], 04/05/2019 14:03:51 04/05/20 19 04/05/2019 urina lysis , dipst ick, auto Unknown Analyte Negati ve Not Available [facility] [address], [place], [address], 04/05/2019 14:03:51 04/05/20 19 04/05/2019 urina lysis , dipst ick, auto Unknown Analyte Negati ve Not Available [facility] [address], [place], [address], 04/05/2019 14:03:51 04/05/20 19 04/05/2019 urina lysis , dipst ick, auto Unknown Analyte Negati ve Not Available [facility] [address] [facility] [address], [place], [address], 04/05/2019 14:03:51 04/05/20 19 04/05/2019 urina lysis , dipst ick, auto Unknown Analyte Clean Catch Not Available [facility] [address] [facility] [address], [place], [address], 04/05/2019 14:03:51 04/05/20 19 04/05/2019 urina lysis , dipst ick, auto Unknown Analyte Automa tiffany Not Available [facility] [address] [place] [address] [address], [place], [address], 04/05/2019 14:03:51 10/04/20 19 10/04/2019 urina lysis , dipst ick, auto Unknown Analyte Yellow Not Available [facility], [facility] [address], [place], [address], 10/04/2019 11:40:15 10/04/20 19 10/04/2019 urina lysis , dipst ick, auto Unknown Analyte Clear Not Available [facility], [facility] [address] [place] [address] [address], [place], [address], 10/04/2019 11:40:15 10/04/20 19 10/04/2019 urina lysis , dipst ick, auto Unknown Analyte 1.010 Not Available [facility], [facility] [address], [place], [address], 10/04/2019 11:40:15 10/04/20 19 10/04/2019 urina lysis , dipst ick, auto Unknown Analyte 1.003 - 1.035 Not Available [facility] [address], [place], [address], 10/04/2019 11:40:15 10/04/20 19 10/04/2019 urina lysis , dipst ick, auto Unknown Analyte 7.0 Not Available [facility], [facility] [address], [place], [address], 10/04/2019 11:40:15 10/04/20 19 10/04/2019 urina lysis , dipst ick, auto Unknown Analyte 5.0 - 8.0 Not Available [facility] [address], [place], [address], 10/04/2019 11:40:15 10/04/20 19 10/04/2019 urina lysis , dipst ick, auto Unknown Analyte Negati ve Not Available [facility] [address] [facility] [address], [place], [address], 10/04/2019 11:40:15 10/04/20 19 10/04/2019 urina lysis , dipst ick, auto Unknown Analyte Negati ve Not Available [facility] [address], [place], [address], 10/04/2019 11:40:15 10/04/20 19 10/04/2019 urina lysis , dipst ick, auto Unknown Analyte Negati ve Not Available [facility] [address], [place], [address], 10/04/2019 11:40:15 10/04/20 19 10/04/2019 urina lysis , dipst ick, auto Unknown Analyte Negati ve Not Available [facility] [address], [place], [address], 10/04/2019 11:40:15 10/04/20 19 10/04/2019 urina lysis , dipst ick, auto Unknown Analyte Negtiv e Not Available [facility] [address], [place], [address], 10/04/2019 11:40:15 10/04/20 19 10/04/2019 urina lysis , dipst ick, auto Unknown Analyte Negati ve - Trace Not Available [facility] [address], [place], [address], 10/04/2019 11:40:15 10/04/20 19 10/04/2019 urina lysis , dipst ick, auto Unknown Analyte Normal Not Available [facility] [address], [place], [address], 10/04/2019 11:40:15 10/04/20 19 10/04/2019 urina lysis , dipst ick, auto Unknown Analyte Normal Not Available [facility] [address], [place], [address], 10/04/2019 11:40:15 10/04/20 19 10/04/2019 urina lysis , dipst ick, auto Unknown Analyte Negati ve Not Available [facility] [address], [place], [address], 10/04/2019 11:40:15 10/04/20 19 10/04/2019 urina lysis , dipst ick, auto Unknown Analyte Negati ve Not Available [facility] [address], [place], [address], 10/04/2019 11:40:15 10/04/20 19 10/04/2019 urina lysis , dipst ick, auto Unknown Analyte Normal Not Available [facility] [address], [place], [address], 10/04/2019 11:40:15 10/04/20 19 10/04/2019 urina lysis , dipst ick, auto Unknown Analyte Normal - 1mg/dl Not Available [facility] [address], [place], [address], 10/04/2019 11:40:15 10/04/20 19 10/04/2019 urina lysis , dipst ick, auto Unknown Analyte Negati ve Not Available [facility] [address], [place], [address], 10/04/2019 11:40:15 10/04/20 19 10/04/2019 urina lysis , dipst ick, auto Unknown Analyte Negati ve Not Available [facility] [address], [place], [address], 10/04/2019 11:40:15 10/04/20 19 10/04/2019 urina lysis , dipst ick, auto Unknown Analyte Negati ve Not Available [facility] [address] [facility] [address], [place], [address], 10/04/2019 11:40:15 10/04/20 19 10/04/2019 urina lysis , dipst ick, auto Unknown Analyte Negati ve Not Available [facility] [address] [facility] [address], [place], [address], 10/04/2019 11:40:15 10/04/20 19 10/04/2019 urina lysis , dipst ick, auto Unknown Analyte Clean Catch Not Available [facility] [address] [facility] [address], [place], [address], 10/04/2019 11:40:15 10/04/20 19 10/04/2019 urina lysis , dipst ick, auto Unknown Analyte Automa tiffany Not Available [facility] [address] [facility] [address], [place], [address], 10/04/2019 11:40:15 03/12/20 19 03/02/2019 CT, chest , w/o contr ast No observ ation record ed. [address], [place], [address], 03/13/2019 09:43:40 03/12/20 19 06/27/2008 CT, abdom en + pelvi s, w/ contr ast No observ ation record ed. [address], [place], [address], 03/13/2019 09:44:21 04/13/20 19 04/13/2019 US, retro perit oneum , limit ed No observ ation record ed. [email or web address] [facility] [address] [place], [id number], 08/28/2019 16:52:43 09/11/2009/11/2019 scooter sam am inter preta tion* No observ ation record ed. [facility] [address] [facility] [facility], [place], [address], 09/12/2019 08:02:44 09/12/20 19 09/11/2019 XR, chest , 2 view No observ ation record ed. [facility] [address] [facility], [place], [address], 09/12/2019 15:11:39 09/12/20 19 09/11/2019 XR, chest , 2 view No observ ation record ed. [facility] [address] [facility], [place], [address], 09/12/2019 16:13:00 09/12/20 19 09/11/2019 XR, chest , 2 view No observ ation record ed. [facility] [address] [facility], [place], [address], 09/13/2019 06:53:17 09/20/20 19 09/18/2019 fluor oscop y (PROC ) No observ ation record ed. [facility] [address] [facility], [place], [address], 09/20/2019 17:36:59 01/03/20 20 01/03/2020 US, retro perit oneum , limit ed No observ ation record ed. [facility] [address] [facility] [address] [place], [place], [id number], 01/31/2020 11:07:06 02/10/20 21 02/09/2021 US, retro perit oneum , limit ed No observ ation record ed. [place] [id number], [place], [address], 02/22/2021 19:43:09 Result Notes None recorded. 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 From Automated Load;Provi mildred: Shyla Howard; atus: Active Not Available [facility] 6 09:35:01 Erythrocy te sedimenta tion rate above reference range 098626042 Active 2015 From Automated Load;Provi mildred: Shyla Howard; atus: Active Not Available [facility] 6 09:35:02 Family history of malignant neoplasm of prostate 689846106 Active 2018 KAREN MEDEIROS JR, MD [address] [place] [address], [address] , [facility] 9 16:00:27 Cyst of kidney 299828694 Active 2018 KAREN MEDEIROS JR, MD [address] [place] [address], [address] , [facility] 9 16:00:28 Problem Notes None recorded. Procedures Surgical History Date Name Laterality Status Provider Name and Address Organization Details Recorded Time 09/18/20 CYSTOURETHROSCOPY, WITH URETERAL CATHETERIZATION (SURG) completed Not Available [facility] 10/10/2019 08:37:02 Imaging Results None recorded. Procedure Notes None recorded. Medical Equipment None Reported. Allergies No known drug allergies Medications Name Sig Start Date Stop Date Status Note LastModified by Organization Details LastModified Time cyclobenz aprine 10 mg tablet Bedtime 04/05 completed Duration : 30 days;Ins truction s: take 1/2 to 1 tab 1-2 hrs before bedtime; Frequenc y: hs;Alt Frequenc y: prn;Medi cation Descript ion: cycloben zaprine; Dosage:1 ; Route:or al; refills: 6; Quantity :30 tablet Not Available Not Available Not Available Flomax 0.4 mg capsule Daily 04/05 completed Duration : 30 days;Jose E quency: daily;Me dication Descript ion: tamsulos in; Dosage:1 ; Route:or al; refills: 0; Quantity :30 capsule Not Available Not Available Not Available ibuprofen 800 mg tablet TAKE 1 TABLET BY MOUTH THREE TIMES DAILY NEEDED active Not Available Not Available No t Available Mobic 15 mg tablet Daily 04/05 completed Duration : 30 days;Ins truction s: do not take any other NSAIDS with it;Frequ ency: daily;Me dication Descript ion: meloxica m; Dosage:1 ; Route:or al; refills: 6; Quantity :30 tablet Not Available Not Available Not Available citalopra m 20 mg tablet TAKE 1 TABLET BY MOUTH ONCE DAILY active Not Available Not Available No t Available methotrex ate sodium 2.5 mg tablet Every week 04/05 completed Instruct ions: Take 6 tablets once weekly. Go for monthly lab.;Jose E quency: Every week;Med ication Descript ion: methotre xate; Dosage:a s directed ; Route:or al; refills: 3; Quantity :24 tablet Not Available Not Available Not Available trazodone 100 mg tablet TAKE 1 TABLET BY MOUTH AT BEDTIME active Not Available Not Available No t Available hydrocodo ne 7.5 mg-acetam inophen 325 mg tablet 01/30 completed Not Available Not Available Not Available gabapenti n 300 mg capsule 04/05 completed Not Available Not Available Not Available folic acid 1 mg tablet Daily 04/05 completed Duration : 30 days;Jose E quency: daily;Me dication Descript ion: folic acid; Dosage:1 ; Route:or al; refills: 3; Quantity :30 tablet Not Available Not Available Not Available albuterol sulfate HFA 90 mcg/actua tion aerosol inhaler INHALE 2 PUFFS BY MOUTH EVERY 6 HOURS NEEDED active Not Available Not Available No t Available dexametha sone 0.5 mg tablet Two times a day 04/05 completed Duration : 10 days;Jose E quency: bid;Medi cation Descript ion: dexameth asone; Route:or al; refills: 0; Quantity :14 tablet Not Available Not Available Not Available nitrofura ntoin monohydra te/macroc rystals 100 mg capsule 01/30 completed Not Available Not Available Not Available aspirin active Medicati on Descript ion: aspirin; refills: 0 Not Available Not Available Not Available Aleve active Not Available Not Availa ble Not Available Xanax Daily 04/05 completed Frequenc y: daily;Al t Frequenc y: prn;Medi cation Descript ion: alprazol am; Dosage:1 ; Route:or al; refills: 0; Quantity :20 tablet Not Available Not Available Not Available Vitamin B12 active Medicati on Descript ion: cyanocob alamin; refills: 0 Not Available Not Available Not Available Vitals Date Recorded Body height Body mass index (BMI) Body weight Provider Name and Address Organization Details Last Updated DateTime 01/31/2020 175.26 cm 25.1 kg/m2 88065.7 g Nayeli Pearson [facility] 01/31/2020 10:59:15 Date Recorded Body weight Body mass index (BMI) Body height Provider Name and Address Organization Details Last Updated DateTime 02/19/2021 20453.7 g 25.1 kg/m2 175.26 cm Chante [facility] 02/19/2021 13:53:25 Date Recorded Body height Body mass index (BMI) Body weight Heart rate Systolic And Diastolic Provider Name and Address Organization Details Last Updated DateTime 04/05/2019 175.26 cm 25.7 kg/m2 02297.07 g 76 /min 132/85 mm[Hg] Nayeli Pearson [facility] 04/05/2019 14:00:08 Date Recorded Body height Body mass index (BMI) Body weight Heart rate Systolic And Diastolic Provider Name and Address Organization Details Last Updated DateTime 10/04/2019 175.26 cm 25.1 kg/m2 47802.7 g 64 /min 148/84 mm[Hg] [facility] 10/04/2019 11:28:59 Social History Question Answer Notes LastModified by Organizat ion Details LastModified Time Tobacco Smoking Status Current Every Day Smoker Nayeli Pearson [facility] 04/05/2019 14:02:08 How Much Tobacco Do You Chew? None Information not available 04/05/2019 Marital Status Informatio n not available 04/05/2019 What Was The Date Of Your Most Recent Tobacco Screening? 04/05/2019 Information n ot available 01/01/2020 How Much Tobacco Do You Smoke? 0.5 PPD Information not available 04/05/2019 Sex: Unknown Functional Status Question Answer Note LastModified by Organization D etails LastModified Time What is your level of alcohol consumption? None Information not available 04/05/2019 Mental Status None recorded. Family History Relationship Description Onset Age of this Age Resolved Age Notes LastModified by Organization Details LastModified Time Unspecified Relation Malignant neoplasm of prostate Not available 2018 14:01:47 Brother Family history of malignant neoplasm Not available 2018 14:01:55 Medical History Condition Response Emphysema Y Arthritis Y False Teeth Y Past Encounters Encounter ID Performer Location Encounter Start Date Encounter Closed Date Diagnosis/Indication Diagnosis SNOMED-CT Code Diagnosis ICD10 Code Diagnosis Note [id number] KAREN MEDEIROS JR, MD [facility] [address] [place] [phone] 04/05/2019 13:46:05 04/05/2019 14:06:13 Cyst of kidney 974437000 N28.1 Family his tory of malignant neoplasm of prostate 107171237 Z80.42 [id number] KAREN MEDEIROS JR, MD [facility] [address] [place] [address] 10/04/2019 11:05:51 10/04/2019 11:47:42 Cyst of kidney 787844654 N28.1 [id number] KAREN MEDEIROS JR, MD [facility] [address] [place] [address] 01/31/2020 10:35:46 01/31/2020 10:59:51 Cyst of kidney 223462325 N28.1 [id number] KAREN MEDEIROS JR, MD [facility] [address] [place] [address] 02/19/2021 13:39:55 02/19/2021 14:00:04 Cyst of kidney 458843779 N28.1 Family his tory of malignant neoplasm of prostate 392783249 Z80.42 Health Concerns Section Related Observation LastModified by Organization Detai ls LastModified Time None Recorded Concern Status LastModified by Organization Details LastModified Time None Recorded Advance Directives Directive None Recorded Payers Insurance Date Sequence Insurance Name Policy Number Policy Cobb Covered Member ID Cobb Member ID Guarantor Name 02/24/2021 1 [employer] (MEDICARE REPLACEMENT/A DVANTAGE - PPO) Behzad Daily [id number] Behzad Daily Notes Date Note Type Note Provider Name and Address Organization Details Recorded Time 04/05/2019 text/html Patient is in to day for evaluation of renal cyst which was seen in the time of CT scan of the chest in February 2019. On the left upper pole there was noted to be a 10 cm renal cyst. He has intermittent flank pain and left upper quadrant pain. He denies hematuria. He denies a history of kidney stones. He does have a family history of prostate cancer. He denies lower urinary tract symptoms. 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 He underwent robotic-assisted laparoscopic left renal cyst decortication September 18, 2019. Patient has recovered uneventfully. Pathology was benign. 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 He underwent robotic-assisted laparoscopic left renal cyst decortication September 18, 2019. Patient has recovered uneventfully. Pathology was benign. Follow-up renal ultrasound from December 2019 does not show any recurrence of large renal cyst. He does have some small renal cysts less than 2 cm on each kidney. Also noted are gallstones which are followed by a local physician for him. 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 He underwent robotic-assisted laparoscopic left renal cyst decortication September 18, 2019. Patient has recovered uneventfully. Pathology was benign. Follow-up renal ultrasound from 01/2021 does not show any recurrence of large renal cyst. He does have some small renal cysts less than 2 cm on each kidney. Also noted are gallstones which are followed by a local physician for him. KAREN MEDEIROS JR, MD [address] [place] [address], [address], [facility] 02/22/2021 19:43:35
--- OUTSIDE RECORDS SUMMARY | 2025-05-16 09:52 | XMS_ITS | Encounter Summary ---
Author Organization Healthcare Address [address] [place] [address] Care Team Providers Care Project Engineer Name Role Phone Brandon Bennett MD Primary Care Provider [phone] Encounter Details Date Type Department Care Team (Latest Contact Info) Description 04/15/2025 Travel Social History Tobacco Use Types Packs/Day Years Used Date Smoking Tobacco: Former Cigarettes 0.5 30 1 2016 Smokeless Tobacco: Never Alcohol Use Standard Drinks/Week Comments Not Currently [...] on file documented as of this encounter Functional Status * Over the past 2 weeks, how often have you been bothered by any of the following problems? Question Answer Date of Assessment Author Little interest or pleasure in doing things Not at all 04/15/2025 1:09 PM EDT Afua Kennedy Feeling down, depressed, or hopeless Not at all 04/15/2025 1:09 PM PIPOT Afua Kennedy Patient Health Questionnaire -2 Score [...] Not difficult at all 04/15/2025 1:09 PM EDT Afua Kennedy documented as of this encounter Plan of Treatment Upcoming Encounters Date Type Department Care Team (Late st Contact Info) Description 01/20/2026 4:10 PM EDT Office Visit [facility] [address] [place] [address] Talat Powell MD [address] [place] [address] documented as of this encounter Visit Diagnoses Not on filedocumented in this encounter Additional Health Concerns Assessment Noted Time PHQ-9 Depression Total Score: 0 04/15/20 25 1:09 PM EDT A fall risk assessment has been complete d for the patient 04/15/2025 1:09 PM EDT A Body Mass Index follow-up plan has been documented for the patient 04/15/2025 1:51 PM EDT documented as of this encounter Care Teams Project Engineer Relationship Specialty Start Date End Date Brandon Bennett MD [address] [place] [address] PCP - General 03/23/23 documented as of this encounter
--- OUTSIDE RECORDS SUMMARY | 2025-05-16 09:52 | XMS_ITS | Clinical Summary ---
Author Organization Healthcare Address [address] [place] [address] Care Team Providers Care Dietary Services Manager Name Role Phone Brandon Bennett MD Primary Care Provider [phone] Allergies No known active allergies Medications albuterol 108 (90 Base) MCG/ACT inhaler Inhale 2 puffs 1 (one) time each day if needed. Active cholecalciferol (Vitamin D3) 25 MCG (1000 UT) tablet Take 1 tablet (1,000 Units) by mouth 1 (one) time each day. Active fluticasone (Flonase) 50 MCG/ACT nasal spray USE 1 SPRAY(S) IN EACH NOSTRIL ONCE DAILY 07/19/2023 Active omeprazole (PriLOSEC) [address] capsule Take 1 capsule by mouth daily. 02/14/2025 Active leflunomide (Arava) 10 MG tabletIndicatio ns:Seropositive rheumatoid arthritis of multiple sites (CMS/HCC) Take 1 tablet by mouth every other day. 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 Encounters Date Type Department Care Team Description 04/15/2025 1:20 PM EDT [facility] Visit [facility] [address] [place] [phone] Talat Powell MD Seropositive rheumatoid arthritis of multiple sites ([facility]); Rheumatoid lung disease ([facility]); Thrombocytopenia ([facility]); High risk medication use; Primary osteoarthritis involving multiple joints; Acquired deformity of both feet; Deformity of hand, unspecified laterality 04/15/2025 Travel 03/07/2025 Refill [facility] Medicine Specialties [address] [place] [address] Talat Powell MD Seropositive rheumatoid arthritis of multiple sites ([facility]) from Last 3 Months Immunizations Immunization Administration Dates Next Due Influenza, High-dose, Split Virus, Trivalent, Injectable, preservative free 08/18/2024 Influenza, high-dose, quadrivalent 08/15/2023 Zoster, Recombinant 05/30/2023,03/24/2023 Social History Tobacco Use Types Packs/Day Years Used Date Smoking Tobacco: Former Cigarettes 0.5 30 1 2016 Smokeless Tobacco: Never Tobacco Cessation:Counseling Given: [...] on file Sexual Orientation Not on file Last Filed Vital Signs Vital Sign Reading [...] Mass Index 23.36 04/15/2025 1:05 PM EDT Plan of Treatment Upcoming Encounters Date Type Department Care Team (Late st Contact Info) Description 01/20/2026 4:10 PM EDT [facility] [address] [place] [address] Talat Powell MD [address] [place] [address] Health Maintenance Due Date Last Done Comments [facility]-Medicare Annual Wellness (AWV) 1950 [facility]-Infant/Child/Adol SDOH Screenings 1950 [id number] Vaccine (#1) 1957 [facility]- SDOH Screenings 1970 [facility]-Adult SDOH Screenings 1970 [facility]-DTaP,Tdap,and Td Vaccine s (1 - Tdap) 1971 [facility]-Pneumococcal Vaccine: 50 + Years (1 of 2 - PCV) 1971 CT Colonography 1997 Colonoscopy 1997 FIT-DNA 1997 FIT 1997 FOBT 1997 Sigmoidoscopy 1997 [facility]-Colorectal Cancer Screening 1997 [facility]-RSV Vaccine: 60+ Years o r (1 - Risk 60-74 years 1-dose series) 2012 [facility]-Abdominal Aortic Aneurys m (AAA) Screening 2017 [facility]-Influenza Vaccine (#1) 07/15/202508/18, 08/15/2023 [facility]-Depression Screening 04/15/2026 025, 04/15/2025, 03/23/2023 [facility]-Hepatitis C Screening Completed 03/04/2023 [facility]-Zoster Vaccines Completed 05/30/2023, 03/24/2023 HPV Vaccines Aged Out No longer eligi ble based on patient's age to complete this topic [facility]-HIB Vaccines Aged Out No longer e ligible based on patient's age to complete this topic [facility]-Hepatitis A Vaccines Aged Out No longer eligible based on patient's age to complete this topic [facility]-IPV Vaccines Aged Out No longer e ligible based on patient's age to complete this topic [facility]-Rotavirus Vaccines Aged Out No lo nger eligible based on patient's age to complete this topic Procedures Procedure Name Priority Date/Time Associated Diagnosis Comments COMPREHENSIVE METABOLIC PANEL, PLASMA Routine 04/15/2025 2:22 PM EDT High risk medication use CBC WITH AUTO DIFFERENTIAL Routine 04/15/2025 2:22 PM EDT High risk medication use C-REACTIVE PROTEIN, PLASMA Routine 04/15/2025 2:22 PM EDT High risk medication use SEDIMENTATION RATE, AUTOMATED Routine 04/15/2025 2:22 PM EDT High risk medication use IG PROFILE Routine 04/15/2025 2:22 PM EDT High risk medication use HEPATITIS C ANTIBODY W/REFLEX TO HCV QUANT PCR Routine 03/04/2023 1:48 PM EDT ILD (interstitial lung disease) (CMS/HCC) Rheumatoid arthritis involving multiple sites with positive rheumatoid factor (CMS/HCC) Weakness from Last 3 Months or Most Recently Relevant to Health Maintenance Results * (ABNORMAL) IG Profile (04/15/2025 2:22 PM EDT) IGA 253 75 - 400 mg/dL 04/15/2025 4:18 PM EDT [facility] IGG 713(L) 720 - 1,589 mg/dL 04/15/2025 4:18 PM EDT [facility] IGM 112 35 - 225 mg/dL 04/15/2025 4:18 PM EDT [facility] Blood Venous blood specimen / Unknown Venipuncture / Unknown 04/15/2025 2:22 PM EDT 04/15/2025 2:22 PM EDT us [facility] BLOOD ORDERABLES Lin oliva Result [facility] [address] [place] [address] * (ABNORMAL) Sedimentation Rate, Automated (04/15/2025 2:22 PM EDT) Sedimentation Rate 39(H) <20 mm/hr 2024 3:30 PM EDT [facility] Blood Venous blood specimen / Unknown Venipuncture / Unknown 04/15/2025 2:22 PM EDT 04/15/2025 2:22 PM EDT us [facility] BLOOD ORDERABLES Lin oliva Result [facility] [address] [place] [address] * (ABNORMAL) CBC and Differential (04/15/2025 2:22 PM EDT) WBC Count 8.93 3.70 - 10.30 10*3/uL LAB HEMATOLOGY METHOD 04/15/2025 3:14 PM EDT [facility] RBC Count 5.11 4.60 - 6.10 10*6/uL LAB HEMATOLOGY METHOD 04/15/2025 3:14 PM EDT [facility] HGB 13.8 13.7 - 17.5 g/dL LAB HEMATOLOGY METHOD 04/15/2025 3:14 PM EDT [facility] HCT 43.0 40.0 - 51.0 % LAB HEMATOLOGY METHOD 04/15/2025 3:14 PM EDT [facility] Platelet Count 181 155 - 369 10*3/uL LAB HEMATOLOGY METHOD 04/15/2025 3:14 PM EDT [facility] MCV 84 79 - 98 fL LAB HEMATOLOGY METHOD 04/15/2025 3:14 PM EDT [facility] MCH 27.0 26.0 - 32.0 pg LAB HEMATOLOGY METHOD 04/15/2025 3:14 PM EDT [facility] MCHC 32.1 30.7 - 35.5 g/dL LAB HEMATOLOGY METHOD 04/15/2025 3:14 PM EDT [facility] RDW 13.4 11.5 - 14.5 % LAB HEMATOLOGY METHOD 04/15/2025 3:14 PM EDT [facility] MPV 10.3 8.8 - 12.5 fL LAB HEMATOLOGY METHOD 04/15/2025 3:14 PM EDT [facility] nRBC 0.0 <=0.0 per 100 WBCs LAB HEMATOLOGY METHOD 04/15/2025 3:14 PM EDT [facility] Differential Type Automated LAB HEMATOLOGY METHOD 04/15/2025 3:14 PM EDT [facility] Neutrophils % 81 % LAB HEMATOLOGY METHOD 04/15/2025 3:14 PM EDT [facility] Lymphocytes % 10 % LAB HEMATOLOGY METHOD 04/15/2025 3:14 PM EDT [facility] Monocytes % 6 % LAB HEMATOLOGY METHOD 04/15/2025 3:14 PM EDT [facility] Eosinophils % 2 % LAB HEMATOLOGY METHOD 04/15/2025 3:14 PM EDT [facility] Basophils % 1 % LAB HEMATOLOGY METHOD 04/15/2025 3:14 PM EDT [facility] Immature Granulocytes % 0 % LAB HEMATOLOGY METHOD 04/15/2025 3:14 PM EDT [facility] Neutrophils Absolute 7.24(H) 1.60 - 6.10 10*3/uL LAB HEMATOLOGY METHOD 04/15/2025 3:14 PM EDT [facility] Lymphocytes Absolute 0.93(L) 1.20 - 3.90 10*3/uL LAB HEMATOLOGY METHOD 04/15/2025 3:14 PM EDT [facility] Monocytes Absolute 0.52 0.30 - 0.90 10*3/uL LAB HEMATOLOGY METHOD 04/15/2025 3:14 PM EDT [facility] Eosinophils Absolute 0.16 0.00 - 0.50 10*3/uL LAB HEMATOLOGY METHOD 04/15/2025 3:14 PM EDT [facility] Basophils Absolute 0.05 0.00 - 0.10 10*3/uL LAB HEMATOLOGY METHOD 04/15/2025 3:14 PM EDT [facility] Immature Granulocytes Absolute 0.03 0.00 - 0.06 10*3/uL LAB HEMATOLOGY METHOD 04/15/2025 3:14 PM EDT [facility] Blood Venous blood specimen / Unknown Venipuncture / Unknown 04/15/2025 2:22 PM EDT 04/15/2025 2:22 PM EDT Narrative [facility] - 04/15/2025 3:14 PM EDT Therapeutic decision making should be based on absolute values, rather than percentages. [facility] BLOOD ORDERABLES Lin l Result Performing Organization Address [facility] Co de Phone Number [facility] [address] [place] [address] * (ABNORMAL) C-Reactive Protein, Plasma (04/15/2025 2:22 PM EDT) CRP, Plasma 32.0(H) <=8.0 mg/L 04/15/2025 4:18 PM EDT [facility] Blood Venous blood specimen / Unknown Venipuncture / Unknown 04/15/2025 2:22 PM EDT 04/15/2025 2:22 PM EDT Narrative [facility] - 04/15/2025 4:18 PM EDT This CRP test is appropriate for assessment of infection, systemic inflammation and/or tissue injury. To assess cardiovascular disease risk order high sensitivity CRP (CRPH). [facility] BLOOD ORDERABLES Lin l Result Performing Organization Address [facility] Co de Phone Number [facility] [address] [place] [address] * (ABNORMAL) Comprehensive Metabolic Panel, Plasma (04/15/2025 2:22 PM EDT) Glucose, Plasma 103(H) 74 - 99 mg/dL 04/15/2025 4:18 PM EDT [facility] BUN, Plasma 17 8 - 23 mg/dL 04/15/2025 4:18 PM EDT [facility] Creatinine, Plasma 0.82 0.70 - 1.20 mg/dL 04/15/2025 4:18 PM EDT [facility] BUN/Creatinine Ratio 21 04/15/2025 4:18 PM EDT [facility] Sodium, Plasma 141 136 - 145 mmol/L 04/15/2025 4:18 PM EDT [facility] Potassium, Plasma 3.8 3.6 - 4.9 mmol/L 04/15/2025 4:18 PM EDT [facility] Chloride, Plasma 105 97 - 107 mmol/L 04/15/2025 4:18 PM EDT [facility] CO2, Plasma 24 22 - 29 mmol/L 04/15/2025 4:18 PM EDT [facility] Anion Gap 12 6 - 16 mmol/L 04/15/2025 4:18 PM EDT [facility] Total Calcium, Plasma 8.7(L) 8.9 - 10.2 mg/dL 04/15/2025 4:18 PM EDT [facility] Total Protein 7.0 6.3 - 7.9 g/dL 04/15/2025 4:18 PM EDT [facility] Albumin, Plasma 4.0 3.5 - 5.2 g/dL 04/15/2025 4:18 PM EDT [facility] AST, Plasma 29 10 - 50 U/L 04/15/2025 4:18 PM EDT [facility] ALT, Plasma 20 10 - 50 U/L 04/15/2025 4:18 PM EDT [facility] Alkaline Phosphatase, Plasma 107 40 - 115 U/L 04/15/2025 4:18 PM EDT [facility] Total Bilirubin, Plasma 0.3 0.2 - 1.1 mg/dL 04/15/2025 4:18 PM EDT [facility] eGFRcr 92.8 mL/min/1.7 3m*2 04/15/2025 4:18 PM EDT [facility] Comment:Reported eGFRcr in m L/min/1.73m2 is based the CKD-EPI 2020 equation that does not use a race coefficient. Blood Venous blood specimen / Unknown Venipuncture / Unknown 04/15/2025 2:22 PM EDT 04/15/2025 2:22 PM EDT us [facility] BLOOD ORDERABLES Lin l Result [facility] [address] [place] [address] * Hepatitis C Antibody (03/04/2023 1:48 PM EDT) Hepatitis C Antibody Negative Negative 03/04/2023 3:34 PM EDT [facility] Blood Venous blood specimen / Unknown Venipuncture / Unknown 03/04/2023 1:48 PM EDT 03/04/2023 1:48 PM EDT Fe Hudson MD LAB BLOOD ORDERABLES Final Result [facility] [address] [place] [address] from Last 3 Months or Most Recently Relevant to Health Maintenance [place] [address] [place] [address] MEDICARE Care Teams Dietary Services Manager Relationship Specialty Start Date End Date Brandon Bennett MD [address] [facility] [address] [place] [address] PCP - General 03/23/23
--- OUTSIDE RECORDS SUMMARY | 2025-05-16 09:52 | XMS_ITS | Encounter Summary ---
Author Organization Healthcare Address [address] [place] [address] Care Team Providers Care Online Marketing Analyst Name Role Phone Brandon Bennett MD Primary Care Provider [phone] Encounter Details Date Type Department Care Team (Late st Contact Info) Description 11/21/2024 Telephone [facility] Infusion [address] [place] [phone] Shobha Smith, [facility] [address], [place] [id number] Social History Tobacco Use Types Packs/Day Years Used Date Smoking Tobacco: Former Cigarettes 0.5 30 1 995 - 2016 Smokeless Tobacco: Never Alcohol Use Standard Drinks/Week Comments Not Currently 0 (1 standard drink = 0.6 oz pur e alcohol) PHQ-2 Answer Date Recorded Patient Health Questionnaire-2 Score 0 05/25/2024 PHQ-2A Answer Date Recorded Depression Risk 0 03/23/2023 Sex and Gender Information Value Date Recorded Sex Assigned at Not on file Legal Sex Male 12:31 PM EDT Gender Identity Not on file Sexual Orientation Not on file documented as of this encounter Miscellaneous Notes * Telephone Encounter - Jolanta Vizcaino - 04/09/2025 9:45 AM EDT Spoke to PT and was able to move appt up to 04/15/2025 * Telephone Encounter - Laisha Jay CPhT - 04/07/2025 2:43 PM EDT New Therapy plan requested Provider: Talat powell Medication: Rituxan Last Infusion: Unknown, outside location * Telephone Encounter - Talat Powell MD - 12/05/2024 5:51 PM EST Reviewed them, within acceptable limits, Thank you * Addendum Note - Van Staley RN - 12/05/2024 10:28 AM ESTAddended by: VAN STALEY on: 12/05/2024 10:28 AM Modules accepted: Orders * Addendum Note - Van Staley RN - 12/05/2024 10:27 AM ESTAddended by: VAN STALEY on: 12/05/2024 10:27 AM Modules accepted: Orders * Addendum Note - Talat Powell MD - 12/04/2024 2:27 PM ESTAddended by: TALAT POWELL on: 12/04/2024 02:27 PM Modules accepted: Orders * Telephone Encounter - Talat Powell MD - 12/04/2024 2:26 PM EST We need to ask him to do this labs and send it to us. Thank you. documented in this encounter Plan of Treatment Upcoming Encounters Date Type Department Care Team (Late st Contact Info) Description 01/20/2026 4:10 PM EDT Office Visit [facility] [address] [place] [address] Talat Powell MD [address] [place] [address] documented as of this encounter Results * CBC and differential (12/05/2024 10:29 AM EST) Blood Venous blood specimen / Unknown Talat Powell MD LAB BLOOD ORDERABLES Fi nal Result EXTERNAL LAB * Comprehensive metabolic panel (12/05/2024 10:27 AM EST) Blood Venous blood specimen / Unknown Talat Powell MD LAB BLOOD ORDERABLES Fi nal Result Performing Organization Address City/[facility]/ZIP Co de Phone Number EXTERNAL LAB documented in this encounter Visit Diagnoses Diagnosis Rheumatoid arthritis involving multiple sites with positive rheumatoid factor (CMS/HCC)- Primary documented in this encounter Additional Health Concerns Assessment Noted Time A fall risk assessment has been complete d for the patient 05/25/2024 1:16 PM EDT A Body Mass Index follow-up plan has been documented for the patient 05/25/2024 1:41 PM EDT documented as of this encounter Care Teams Online Marketing Analyst Relationship Specialty Start Date End Date Brandon Bennett MD [address] [facility] [address], [place] [address] PCP - General 03/23/23 documented as of this encounter
[2025-05-16 10:35] VITALS: PULSE 64; PULSE 72
[2025-05-16] MEDS: ALBUTEROL 0.083% 2.5 MG/3 ML NEB IH (10:35)
== END 2025-05-16 23:59 | disposition home or self-care (01) ==
LOC: RT 09:51
PROVIDERS: PCP Family Medicine; Visit Provider Internal Medicine Pulmonary Disease
DX: J98.4 Other disorders of lung (principal); J44.9 Chronic obstructive pulmonary disease, unspecified; R94.2 Abnormal results of pulmonary function studies
CPT/HCPCS: 94060; 94618; 94640; 94726; 94729

== ENCOUNTER 2025-06-17 08:56 | Outpatient (CLI) | payer MEDICARE, SELFPAY ==
[2025-06-17] VITALS (8 sets, daily range): BP systolic 138–177; BP diastolic 60–89; PULSE 54–67; RESP 17–18; O2SAT 96–97
--- OUTSIDE RECORDS SUMMARY | 2025-06-17 09:04 | XMS_ITS | Clinical Summary ---
Author Organization [facility] Address [address] [place] [address] Care Team Providers Care Vice President Fixed Income Name Role Phone Brandon Bennett MD Primary Care Provider [phone] Allergies No known active allergies Medications citalopram (CeleXA) 20 MG tablet Take 20 mg by mouth Daily. Active traZODone (DESYREL) 100 MG tablet Take 100 mg by mouth Every Night. Active Cyanocobalamin (VITAMIN B 12 PO) Take by mouth. Active docusate sodium (COLACE) 100 MG capsule Take 1 capsule by mouth 2 (Two) Times a Day As Needed for Constipation. 20 capsule 09/18/2019 Active HYDROcodone-rudolph taminophen (NORCO) 7.5-325 MG per tablet Take 1 tablet by mouth Every 4-6 Hours As Needed 30 tablet 09/19/2019 12:24 PM EST 09/19/2019 Active polyethylene glycol (MIRALAX) powder Dissolve 1 capful (17g) in water and take by mouth Daily. 510 g 09/18/2019 Active nitrofurantoin, macrocrystal-mo nohydrate, (MACROBID) 100 MG capsule Take 1 capsule by mouth 2 (Two) Times a Day. 20 capsule 09/19/2019 12:24 PM EST 09/18/2019 Active Active Problems Problem Noted Date Diagnosed Date Renal cyst 09/18/2019 S/P left renal cyst decortic ation cysto bilateral retrograde pyelograms 09/18/2019 Anxiety and depression 09/18/2019 Tobacco use 09/18/2019 Social History Tobacco Use Types Packs/Day Years Used Date Smoking Tobacco: Every Day Cigarettes 0.3 40 Smokeless Tobacco: Never Tobacco Cessation:Ready to Q uit: Yes Alcohol Use Standard Drinks/Week Comments No 0 (1 standard drink = 0.6 oz pur e alcohol) AUDIT-C Answer Date Recorded Frequency of Alcohol Consumption Never 09/11/2019 Average Number of Drinks Not on file 019 Frequency of Binge Drinking Not on file 08/15 Abuse Screen Answer Date Recorded Unsafe at Home or Work/School Not on file Feels Threatened by Someone? Not on file 10/2023 Does Anyone Keep You from Co ntacting Others or Doint Things Outside the Home? Not on file 08/25/2023 Physical Sign of Abuse Present Not on file 1 Housing Stability Answer Date Recorded Current Living Arrangements Not on file 08/14 Potentially Unsafe Housing Conditions Not on nikia e 08/25/2023 Family and Community Support Answer Dann e Recorded Help with Day-to-Day Activities Not on file 08/25/2023 Lonely or Isolated Not on file 08/25/2023 Employment Answer Date Recorded Do you want help finding or keeping work or a trista b? Not on file 08/25/2023 Disabilities Answer Date Recorded Concentrating, Remembering, or Making Decisions Difficulty Not on file 08/25/2023 Doing Errands Independently Difficulty Not on fi le 08/25/2023 Education Answer Date Recorded Help with school or training? Not on file Preferred Language Not on file 08/25/2023 Sex and Gender Information Value Date Recorded Sex Assigned at Not on file Legal Sex Male 10:11 AM EDT Gender Identity Not on file Sexual Orientation Not on file Last Filed Vital Signs Vital Sign Reading Time Taken Comments Blood Pressure 130/75 09/19/2019 8:05 AM EST Pulse 56 09/19/2019 8:05 AM EST Temperature 36.3 C (97.4 F) 09/19/2019 8:05 AM EST Respiratory Rate 18 09/19/2019 8:05 AM EST Oxygen Saturation 98% 09/19/2019 8:05 AM EST Inhaled Oxygen Concentration - - Weight 77.1 kg (170 lb) 09/18/2019 7:47 AM EST Height 175.3 cm (5' 9 ) 09/18/2019 7:47 AM EST Body Mass Index 25.1 09/18/2019 7:47 AM EST Plan of Treatment Health Maintenance Due Date Last Done Comments TDAP/TD VACCINES (1 - Tdap) 1971 COLOGUARD 1997 COLON CANCER SCREENING 5 YEAR SIGMOIDOSCOPY 1997 COLONOSCOPY 1997 [address] CANCER SCREENING 1997 CT COLONOGRAPHY 1997 FECAL OCCULT BLOOD TEST 1997 FIT Testing (1 year) 1997 Pneumococcal Vaccine 50+ (1 of 1 - PCV) 2002 ZOSTER VACCINE (1 of 2) 2002 AAA SCREEN ONCE 2017 ANNUAL PHYSICAL 09/11/2019 HEPATITIS C SCREENING 09/11/2019 COVID-19 Vaccine ( - season) 2024 INFLUENZA VACCINE 08/14/2025 Medical Devices Implanted Type Area It Applications Manager Device Identifier Shelf Expiration Date Model / Serial / Lot Grft Amnio Umb Cord Pro3c Thick 3x6cm - [id number] - [id number] Implanted:Qty : 1 on 09/18/2019 by Juan F Saravia Jr., MD at [facility] Implant PARAGON 28 01/17/2024 [id number] / [id number] / Sealant Fibrin Tisseel Fz 4ml - [id number] Implanted:Qty : 1 on 09/18/2019 by Juan F Saravia Jr., MD at [facility] Implant Left: Pelvis COUNTS INCLUDE 234 BEDS AT [facility] 01/11/2021 [id number] / / [id number] Insurance [facility] MEDICARE ADVANTAGE Advance Directives * CPR (Attempt to Resuscitate) (Latest Code Status on File) Date Activated Date Inactivated Comments 09/18/2019 1:11 PM 09/19/2019 2:26 PM Question Answer Comments Code Status (Patient has no pulse and is not breathing): CPR (Attempt to Resuscitate) Medical Interventions (Patie nt has pulse or is breathing): Full Level Of Support Discussed With: Patient Care Teams Vice President Fixed Income Relationship Specialty Start Date End Date Brandon Bennett MD [address] [facility] [address] [facility] [address] [place] [address] PCP - General Family Medicine 09/11/19
--- OUTSIDE RECORDS SUMMARY | 2025-06-17 09:04 | XMS_ITS | Clinical Summary ---
Author Organization Healthcare Address [address] 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); Thrombocytopenia ([facility]); High risk medication use; Primary osteoarthritis involving multiple joints; Acquired deformity of both feet; Deformity of hand, unspecified laterality 04/15/2025 Travel from Last 3 Months Immunizations Immunization Administration [...] Description 01/20/2026 4:10 PM EDT Office Visit [facility] [address] [place] [address] Talat Powell MD [address] [place] [address] Health Maintenance Due Date Last Done Comments [facility]-Medicare Annual Wellness (AWV) 1950 [facility]-/Child/Adol SDOH Screenings 1950 [id number] Vaccine (#1) 1957 [facility]- SDOH Screenings 1970 [...] - 400 mg/dL 04/15/2025 4:18 PM EDT [facility] IGG 713(L) 720 - 1,589 mg/dL 04/15/2025 4:18 PM EDT [facility] IGM 112 35 - 225 mg/dL 04/15/2025 4:18 PM EDT [facility] Blood Venous blood specimen / Unknown Venipuncture / Unknown 04/15/2025 2:22 PM EDT 04/15/2025 2:22 PM EDT us Mary NAILS LAB BLOOD ORDERABLES Lin oliva Result [facility] [address] [place] [address] * (ABNORMAL) Sedimentation Rate, Automated (04/15/2025 2:22 PM EDT) Sedimentation Rate 39(H) <20 mm/hr 2024 3:30 PM EDT [facility] Blood Venous blood specimen / Unknown Venipuncture / Unknown 04/15/2025 2:22 PM EDT 04/15/2025 2:22 PM EDT us Mary NAILS LAB BLOOD ORDERABLES Lin l Result [facility] [address] [place] [address] * (ABNORMAL) CBC and Differential (04/15/2025 2:22 PM EDT) WBC Count 8.93 3.70 - 10.30 10*3/uL LAB HEMATOLOGY METHOD 04/15/2025 3:14 PM EDT [facility] RBC Count 5.11 4.60 - 6.10 10*6/uL LAB HEMATOLOGY METHOD 04/15/2025 3:14 PM EDT [facility] HGB 13.8 13.7 - 17.5 g/dL LAB HEMATOLOGY METHOD 04/15/2025 3:14 PM EDT [facility] HCT 43.0 40.0 - 51.0 % LAB HEMATOLOGY METHOD 04/15/2025 3:14 PM EDT [facility] Platelet Count 181 155 - 369 10*3/uL LAB HEMATOLOGY METHOD 04/15/2025 3:14 PM EDT [facility] MCV 84 79 - 98 fL LAB HEMATOLOGY METHOD 04/15/2025 3:14 PM EDT [facility] MCH 27.0 26.0 - 32.0 pg LAB HEMATOLOGY METHOD 04/15/2025 3:14 PM EDT [facility] MCHC 32.1 30.7 - 35.5 g/dL LAB HEMATOLOGY METHOD 04/15/2025 3:14 PM EDT [facility] RDW 13.4 11.5 - 14.5 % LAB HEMATOLOGY METHOD 04/15/2025 3:14 PM EDT [facility] MPV 10.3 8.8 - 12.5 fL LAB HEMATOLOGY METHOD 04/15/2025 3:14 PM EDT [facility] nRBC 0.0 <=0.0 per 100 WBCs LAB HEMATOLOGY METHOD 04/15/2025 3:14 PM EDT [facility] Differential Type Automated LAB HEMATOLOGY METHOD 04/15/2025 3:14 PM EDT [facility] Neutrophils % 81 % LAB HEMATOLOGY METHOD 04/15/2025 3:14 PM EDT [facility] Lymphocytes % 10 % LAB HEMATOLOGY METHOD 04/15/2025 3:14 PM EDT [facility] Monocytes % 6 % LAB HEMATOLOGY METHOD 04/15/2025 3:14 PM EDT [facility] Eosinophils % 2 % LAB HEMATOLOGY METHOD 04/15/2025 3:14 PM EDT [facility] Basophils % 1 % LAB HEMATOLOGY METHOD 04/15/2025 3:14 PM EDT [facility] Immature Granulocytes % 0 % LAB HEMATOLOGY METHOD 04/15/2025 3:14 PM EDT [facility] Neutrophils Absolute 7.24(H) 1.60 - 6.10 10*3/uL LAB HEMATOLOGY METHOD 04/15/2025 3:14 PM EDT [facility] Lymphocytes Absolute 0.93(L) 1.20 - 3.90 10*3/uL LAB HEMATOLOGY METHOD 04/15/2025 3:14 PM EDT [facility] Monocytes Absolute 0.52 0.30 - 0.90 10*3/uL LAB HEMATOLOGY METHOD 04/15/2025 3:14 PM EDT [facility] Eosinophils Absolute 0.16 0.00 - 0.50 10*3/uL LAB HEMATOLOGY METHOD 04/15/2025 3:14 PM EDT [facility] Basophils Absolute 0.05 0.00 - 0.10 10*3/uL LAB HEMATOLOGY METHOD 04/15/2025 3:14 PM EDT [facility] Immature Granulocytes Absolute 0.03 0.00 - 0.06 10*3/uL LAB HEMATOLOGY METHOD 04/15/2025 3:14 PM EDT [facility] Blood Venous blood specimen / Unknown Venipuncture / Unknown 04/15/2025 2:22 PM EDT 04/15/2025 2:22 PM EDT Narrative [facility] - 04/15/2025 3:14 PM EDT Therapeutic decision making should be based on absolute values, rather than percentages. us Mary NAILS LAB BLOOD ORDERABLES Lin l Result Performing Organization Address City/[facility]/ZIP Co de Phone Number [facility] [address] [place] [address] * (ABNORMAL) C-Reactive Protein, Plasma (04/15/2025 2:22 PM EDT) CRP, Plasma 32.0(H) <=8.0 mg/L 04/15/2025 4:18 PM EDT [facility] Blood Venous blood specimen / Unknown Venipuncture / Unknown 04/15/2025 2:22 PM EDT 04/15/2025 2:22 PM EDT Narrative [facility] - 04/15/2025 4:18 PM EDT This CRP test is appropriate for assessment of infection, systemic inflammation and/or tissue injury. To assess cardiovascular disease risk order high sensitivity CRP (CRPH). Mary NAILS LAB BLOOD ORDERABLES Lin l Result Performing Organization Address [facility] Co de Phone Number [facility] [address] [place] [address] * (ABNORMAL) Comprehensive Metabolic Panel, Plasma (04/15/2025 2:22 PM EDT) Glucose, Plasma 103(H) 74 - 99 mg/dL 04/15/2025 4:18 PM EDT [facility] BUN, Plasma 17 8 - 23 mg/dL 04/15/2025 4:18 PM EDT [facility] Creatinine, Plasma 0.82 0.70 - 1.20 mg/dL 04/15/2025 4:18 PM EDT [facility] BUN/Creatinine Ratio 21 04/15/2025 4:18 PM EDT [facility] Sodium, Plasma 141 136 - 145 mmol/L 04/15/2025 4:18 PM EDT [facility] Potassium, Plasma 3.8 3.6 - 4.9 mmol/L 04/15/2025 4:18 PM EDT [facility] Chloride, Plasma 105 97 - 107 mmol/L 04/15/2025 4:18 PM EDT [facility] CO2, Plasma 24 22 - 29 mmol/L 04/15/2025 4:18 PM EDT [facility] Anion Gap 12 6 - 16 mmol/L 04/15/2025 4:18 PM EDT [facility] Total Calcium, Plasma 8.7(L) 8.9 - 10.2 mg/dL 04/15/2025 4:18 PM EDT [facility] Total Protein 7.0 6.3 - 7.9 g/dL 04/15/2025 4:18 PM EDT [facility] Albumin, Plasma 4.0 3.5 - 5.2 g/dL 04/15/2025 4:18 PM EDT [facility] AST, Plasma 29 10 - 50 U/L 04/15/2025 4:18 PM EDT [facility] ALT, Plasma 20 10 - 50 U/L 04/15/2025 4:18 PM EDT [facility] Alkaline Phosphatase, Plasma 107 40 - 115 U/L 04/15/2025 4:18 PM EDT [facility] Total Bilirubin, Plasma 0.3 0.2 - 1.1 mg/dL 04/15/2025 4:18 PM EDT [facility] eGFRcr 92.8 mL/min/1.7 3m*2 04/15/2025 4:18 PM EDT [facility] Comment:Reported eGFRcr in m L/min/1.73m2 is based the CKD-EPI 2020 equation that does not use a race coefficient. Blood Venous blood specimen / Unknown Venipuncture / Unknown 04/15/2025 2:22 PM EDT 04/15/2025 2:22 PM EDT us Mary NAILS LAB BLOOD ORDERABLES Lin l Result [facility] [address] [place] [address] * Hepatitis C Antibody (03/04/2023 1:48 PM EDT) Hepatitis C Antibody Negative Negative 03/04/2023 3:34 PM EDT [facility] Blood Venous blood specimen / Unknown Venipuncture / Unknown 03/04/2023 1:48 PM EDT 03/04/2023 1:48 PM EDT Fe Hudson MD LAB BLOOD ORDERABLES Final Result [facility] [address] [place] [address] from Last 3 Months or Most Recently Relevant to Health Maintenance Insurance [facility] MEDICARE Care Teams Liability Claims Examiner Relationship Specialty Start Date End Date Brandon Bennett MD [address] [place] [id number] PCP - General 03/23/23
[2025-06-17] MEDS: METHYLPREDNISOLONE SOD SUCC 125MG VIAL 125 MG (09:05)
[2025-06-17] MEDS: 0.9 % SODIUM CHLORIDE 50 ML 100 ML IV (09:05)
[2025-06-17] MEDS: ACETAMINOPHEN 500MG TAB 1000 MG (09:05)
[2025-06-17 09:29] LABS: Hematocrit 41.6 % (42.0-52.0); Hemoglobin 12.9 g/dL (14.1-18.0); Immature Granulocytes % 0.3 %; Mean Corpuscular HGB Conc 31.0 g/dL (31.8-35.4); Mean Corpuscular Hemoglobin 26.9 pg (27.0-31.2); Mean Corpuscular Volume 86.7 fl (80-94); Nucleated Red Blood Cells % 0 %; Platelet Count 163 K/mm3 (142-424); Red Blood Count 4.80 M/mm3 (4.60-6.20); Red Cell Distribution Width-SD 46.0 fL; White Blood Count 7.7 K/mm3 (4.8-10.8)
[2025-06-17 09:41] LABS: Albumin Level 3.4 g/dl (3.5-5.0); Chloride 106 mmol/L (98-107)
[2025-06-17 09:42] LABS: Potassium 4.3 mmoL/L (3.5-5.1); Sodium 135 mmol/L (136-145)
[2025-06-17 09:44] LABS: Alanine Aminotransferase 22 U/L (12-78); Anion Gap 8.3 mEq/L (5-15); Aspartate Amino Transferase 51 U/L (17-59); Blood Urea Nitrogen 19 mg/dl (9-20); Carbon Dioxide 25 mmol/L (22.0-30.0); Creatinine,Serum 0.70 mg/dl (0.66-1.25); Estimated Glomerular Filt Rate 111 ml/min (>60); GFR (African American) 134 ML/MIN (>60)
[2025-06-17 09:45] LABS: Albumin/Globulin Ratio 1.0 (1.1-1.8); Alkaline Phosphatase 88 U/L (38-126); Bilirubin,Total 0.8 mg/dl (0.2-1.3); Calcium 9.0 mg/dl (8.4-10.2); Globulin 3.5 g/dL (1.3-3.2); Glucose 87 mg/dl (74-100); Total Protein,Serum 6.9 g/dl (6.3-8.2)
[2025-06-17] MEDS: RITUXIMAB 1,000 MG in 0.9 % SODIUM CHLORIDE 400 ML 25 MG IV (09:55)
== END 2025-06-17 13:40 | disposition home or self-care (01) ==
LOC: INF 08:57
PROVIDERS: PCP Family Medicine; Visit Provider Internal Medicine Rheumatology
DX: M05.79 Rheumatoid arthritis with rheumatoid factor of multiple sites without organ or systems involvement (principal); M05.10 Rheumatoid lung disease with rheumatoid arthritis of unspecified site; Z79.899 Other long term (current) drug therapy
CPT/HCPCS: 80053; 85025; 96413; 96415; J2919; J7040; J9312

== ENCOUNTER 2025-07-01 08:45 | Outpatient (CLI) | payer MEDICARE, SELFPAY ==
[2025-07-01] VITALS (7 sets, daily range): BP systolic 157–188; BP diastolic 74–89; PULSE 54–61; RESP 18; TEMP 36.5; O2SAT 98; BMI 20.7
--- OUTSIDE RECORDS SUMMARY | 2025-07-01 08:49 | XMS_ITS | Clinical Summary ---
Author Organization [facility] Address [address] [place] [address] Care Team Providers Care Bulk System Operator Name Role Phone Brandon Bennett MD Primary Care Provider + [phone] Allergies No known active allergies Medications citalopram [...] VACCINE 08/14/2025 Medical Devices Implanted Type Area Food Or Baggage Handling [employer] Device Identifier Shelf Expiration Date Model / Serial / Lot Grft Amnio Umb Cord Pro3c Thick 3x6cm - [id number] - [id number] Implanted:Qty : 1 on 09/18/2019 by Juan F Saravia Jr., MD at [facility] Implant PARAGON 28 01/17/2024 [id number] / [id number] / Sealant Fibrin Tisseel Fz 4ml - [id number] Implanted:Qty : 1 on 09/18/2019 by Juan F Saravia Jr., MD at [facility] Implant Left: Pelvis [facility] 01/11/2021 [id number] / / [id number] Insurance [facility] MEDICARE ADVANTAGE Advance Directives * CPR (Attempt to Resuscitate) (Latest Code Status on File) Date Activated Date Inactivated Comments 09/18/2019 1:11 PM 09/19/2019 2:26 PM Question Answer Comments Code Status (Patient has no pulse and is not breathing): CPR (Attempt to Resuscitate) Medical Interventions (Patie nt has pulse or is breathing): Full Level Of Support Discussed With: Patient Care Teams Bulk System Operator Relationship Specialty Start Date End Date Brandon Bennett MD [address] [facility] [address] [facility] [address] [place] [address] PCP - General Family Medicine 09/11/19
--- OUTSIDE RECORDS SUMMARY | 2025-07-01 08:49 | XMS_ITS | Encounter Summary ---
Author Organization Healthcare Address [address] [place] [address] Care Team Providers Care Chief Engineer Production Name Role Phone Brandon Bennett MD Primary Care Provider [phone] Encounter Details Date Type Department Care Team (Late st Contact Info) Description 06/20/2025 Orders Only [facility] Medicine Specialties [address] [place] [address] Provider, MD Arnie [address] [place] [id number] Social History Tobacco Use Types Packs/Day Years [...] on file documented as of this encounter Plan of Treatment Upcoming Encounters Date Type Department Care Team (Late st Contact Info) Description 01/20/2026 4:10 PM EDT Office Visit [facility] [address] [place] [address] Talat Powell MD [address] [place] [address] documented as of this encounter Procedures Procedure Name Priority Date/Time Associated Diagnosis Comments COMPLETE METABOLIC PROFILE (CMP) Routine 06/20/2025 2:36 PM EDT CBC WITH AUTO DIFFERENTIAL Routine 06/20/2025 2:35 PM EDT documented in this encounter Results * COMPLETE METABOLIC PROFILE (CMP) (06/20/2025 2:36 PM EDT) us Zzzhistorical Provider LAB BLOOD ORDERABLES F inal Result * CBC and Differential (06/20/2025 2:35 PM EDT) Blood Venous blood specimen / [facility] BLOOD ORDERABLES F inal Result documented in this encounter Visit Diagnoses Not on filedocumented [...] documented as of this encounter Care Teams Chief Engineer Production Relationship Specialty Start Date End Date Brandon Bennett MD [address] [place] [address] PCP - General 03/23/23 documented as of this encounter
--- OUTSIDE RECORDS SUMMARY | 2025-07-01 08:49 | XMS_ITS ---
Author Organization Unknown Results OrderDate OrderTestName ResultName ResultDate Value Units Range AbnormalFlag ResultStatus ObservationNotes TestCode ResultCode DateRecorded AccessionNumber DiagnosticSectionCode DiagnosticSectionName Sequence Interpretation Cust om 01/23/2025 00:00:00 P-Vitamin D 25-Hydroxy Vitamin D 25-Hydroxy 9746-82-55P22:00:00 22.4 ng/mL 30.0-100.0 - ng/mL Licha Santiago 01/24/2025 11:26:55 AM > See phone encounter P-Vitamin D 25-Hydroxy Coding Vitamin D 25-Hydroxy 01/23/2025 00:00: 00:00:00P-TSH reflex to FT4TSH reflex to FT4 4695-26-76H66:00:000.74mU/L0.43-5.25 - mU/LRevieLicha Buenrostro 01/24/2025 11:26:55 AM > See phone encounter Coding P-TSH reflex to FT4 Coding TSH reflex to FT4 01/23/2025 00:00: 00:00:00P-Lipid PanelTriglycerides 2750-26-06L01:00:77411ct/dL<150 - mg/dLLicha Sparks 01/24/2025 11:26:55 AM > See phone encounter Coding P-Lipid Panel Coding Triglycerides 01/23/2025 00:00: 00:00:00P-Lipid PanelNon-HDL Cholesterol 1517-60-66J69:00:93322qe/dL<130 - mg/dLLicha Sparks 01/24/2025 11:26:55 AM > See phone encounter Coding P-Lipid Panel Coding Non-HDL Cholesterol 01/23/2025 00:00: 00:00:00P-Lipid PanelLDL/HDL Ratio 4845-66-33O21:00:002.5Ratio<3.3 - RatioLicha Sparks 01/24/2025 11:26:55 AM > See phone encounter Coding P-Lipid Panel Coding LDL/HDL Ratio 01/23/2025 00:00: 00:00:00P-Lipid PanelLDL Cholesterol (Calculation) 7089-77-37U74:00:0089mg/dL<130 - mg/dLLicha Sparks 01/24/2025 11:26:55 AM > See phone encounter Coding P-Lipid Panel Coding LDL Cholesterol (Calculation ) 01/23/2025 00:00: 00:00:00P-Lipid PanelHDL Cholesterol 2620-25-96U56:00:0035mg/dL>39 - mg/dLLicha Vargas 01/24/2025 11:26:55 AM > See phone encounter Coding P-Lipid Panel Coding HDL Cholesterol 01/23/2025 00:00: 00:00:00P-Lipid PanelCholesterol 7201-99-48Z03:00:97570vr/dL<200 - mg/dLLicha Sparks 01/24/2025 11:26:55 AM > See phone encounter Coding P-Lipid Panel Coding Cholesterol 01/23/2025 00:00: 00:00:00P-Lipid PanelCholesterol / HDL Ratio 5244-87-52B65:00:004.03Dtjje6.00-4.99 - RatioClare Licha 01/24/2025 11:26:55 AM > See phone encounter Coding P-Lipid Panel Coding Cholesterol / HDL Ratio 01/23/2025 00:00: 00:00:00P-Comprehensive Metabolic Panel (CMP)eGFR by Pzbiouolhe1789-37-10P38:00:0088mL/min/1.73m2>59 - mL/min/1.84d3TboecqtgLicha Sosa 01/24/2025 11:26:55 AM > See phone encounter Coding P-Comprehensive Metabolic Pa shara (CMP) 01/23/2025 00:00: 00:00:00P-Comprehensive Metabolic Panel (CMP) Nifimxn0304-64-46D50:00:006.6g/dL6.0-8.3 - g/dLLicha Sparks 01/24/2025 11:26:55 AM > See phone encounter Coding P-Comprehensive Metabolic Pa shara (CMP) Coding Protein 01/23/2025 00:00: 00:00:00P-Comprehensive Metabolic Panel (CMP) Nyycxk1994-85-81C46:00:09416otww/L924-140 - mmol/Licha Vargas 01/24/2025 11:26:55 AM > See phone encounter Coding P-Comprehensive Metabolic Pa shara (CMP) Coding Sodium 01/23/2025 00:00: 00:00:00P-Comprehensive Metabolic Panel (CMP) Jjgygrres1064-38-54Z43:00:004.4mmol/L3.5-5.3 - mmol/Licha Vargas 01/24/2025 11:26:55 AM > See phone encounter Coding P-Comprehensive Metabolic Pa shara (CMP) Coding Potassium 01/23/2025 00:00: 00:00:00P-Comprehensive Metabolic Panel (CMP) Xpxvjte0202-20-35E25:00:0081mg/dL65-99 - mg/dLLicha Sparks 01/24/2025 11:26:55 AM > See phone encounter Coding P-Comprehensive Metabolic Pa shara (CMP) Coding Glucose 01/23/2025 00:00: 00:00:00P-Comprehensive Metabolic Panel (CMP) Ilyzfgyzku4352-45-68U64:00:000.92mg/dL0.70-1.30 - mg/dLLicha Sparks 01/24/2025 11:26:55 AM > See phone encounter Coding P-Comprehensive Metabolic Pa shara (CMP) Coding Creatinine 01/23/2025 00:00: 00:00:00P-Comprehensive Metabolic Panel (CMP)CO2 9787-85-90M88:00:0026mmol/L22-32 - mmol/Licha Vargas 01/24/2025 11:26:55 AM > See phone encounter Coding P-Comprehensive Metabolic Pa shara (CMP) Coding CO2 01/23/2025 00:00: 00:00:00P-Comprehensive Metabolic Panel (CMP) Yjfveqhj7911-41-35A59:00:29458dzro/L97-108 - mmol/LRLicha Da Silva 01/24/2025 11:26:55 AM > See phone encounter Coding P-Comprehensive Metabolic Pa shara (CMP) Coding Chloride 01/23/2025 00:00: 00:00:00P-Comprehensive Metabolic Panel (CMP) Jivljqx1602-35-36R17:00:009.3mg/dL8.6-10.4 - mg/dLReLicha Cohen 01/24/2025 11:26:55 AM > See phone encounter Coding P-Comprehensive Metabolic Pa shara (CMP) Coding Calcium 01/23/2025 00:00: 00:00:00P-Comprehensive Metabolic Panel (CMP)BUN 1917-40-64W10:00:0019mg/dL8-23 - mg/dLLicha Sparks 01/24/2025 11:26:55 AM > See phone encounter Coding P-Comprehensive Metabolic Pa shara (CMP) Coding BUN 01/23/2025 00:00: 00:00:00P-Comprehensive Metabolic Panel (CMP) Bilirubin, Hmkrk5659-98-25Z42:00:000.4mg/dL<0.2-1.2 - mg/dLReLicha Cohen 01/24/2025 11:26:55 AM > See phone encounter Coding P-Comprehensive Metabolic Pa shara (CMP) Coding Bilirubin, Total 01/23/2025 00:00: 00:00:00P-Comprehensive Metabolic Panel (CMP)AST (SGOT)6743-27-97X05:00:0028IU/L<5-46 - IU/LRevieLicha Buenrostro 01/24/2025 11:26:55 AM > See phone encounter Coding P-Comprehensive Metabolic Pa shara (CMP) Coding AST (SGOT) 01/23/2025 00:00: 00:00:00P-Comprehensive Metabolic Panel (CMP)ALT (SGPT)6578-86-21H27:00:0019IU/L<5-55 - IU/LRevLicha Roberts 01/24/2025 11:26:55 AM > See phone encounter Coding P-Comprehensive Metabolic Pa shara (CMP) Coding ALT (SGPT) 01/23/2025 00:00: 00:00:00P-Comprehensive Metabolic Panel (CMP) Alkaline Rzkobkjrjiu8449-81-96A12:00:90588NB/L40-129 - IU/Licha Vargas 01/24/2025 11:26:55 AM > See phone encounter Coding P-Comprehensive Metabolic Pa shara (CMP) Coding Alkaline Phosphatase 01/23/2025 00:00: 00:00:00P-Comprehensive Metabolic Panel (CMP) Uydsfkw5562-14-45R91:00:004.3g/dL3.5-5.3 - g/dLReLicha Cohen 01/24/2025 11:26:55 AM > See phone encounter Coding P-Comprehensive Metabolic Pa shara (CMP) Coding Albumin 01/23/2025 00:00: 00:00:00P-Comprehensive Metabolic Panel (CMP)A/G Wgtfu3472-10-32E17:00:001.91.1-2.5 -ReviewedMike Licha 01/24/2025 11:26:55 AM > See phone encounter Coding P-Comprehensive Metabolic Pa shara (CMP) Coding A/G Ratio 01/23/2025 00:00: 00:00:00Glycohemoglobin A1c (in house) lhbetdiaenoajgx4787-72-29I15:00:005.4%%5 - 6.5 %Dominique Rose 01/23/2025 3:54:49 PM > Licha Mckeon 01/24/2025 11:26:55 AM > See phone encounter Coding Glycohemoglobin A1c (in hous e) Coding glycohemoglobin 01/23/2025 00:00: 00:00:00Glucose (In-House)blood glucose 8035-36-62C68:00:0085mg/dL74 - 106 mg/dLReDominique Alvares 01/23/2025 3:52:49 PM > Licha Mckeon 01/24/2025 11:26:55 AM > See phone encounter Coding Glucose (In-House) 01/23/2025 00:00:00
--- OUTSIDE RECORDS SUMMARY | 2025-07-01 08:49 | XMS_ITS | Clinical Summary ---
Author Organization Healthcare Address [address] 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); Rheumatoid lung disease (CMS/HCC); Thrombocytopenia (CMS/[facility]); High risk medication use; Primary osteoarthritis involving multiple joints; Acquired deformity of both feet; Deformity of hand, unspecified laterality 04/15/2025 Travel from Last 3 Months Immunizations Immunization Administration Dates Next Due Influenza, High-dose, Split Virus, Trivalent, Injectable, preservative free 08/18/2024 Influenza, high-dose, quadrivalent 08/15/2023 Zoster, Recombinant 05/30/2023,03/24/2023 Social History Tobacco Use Types Packs/Day Years Used Date Smoking Tobacco: Former Cigarettes 0.5 30 1 - 2016 Smokeless Tobacco: Never Tobacco Cessation:Counseling [...] Description 01/20/2026 4:10 PM EDT Office Visit [facility] [address] [place] [address] Talat Powell MD [address] [place] [address] Health Maintenance Due Date Last Done Comments [facility]-Medicare Annual Wellness (AWV) 1950 [facility]-Infant/Child/Adol SDOH Screenings 1950 [id number] Vaccine (#1) 1957 [facility]- SDOH Screenings 1970 [...] AUTO DIFFERENTIAL Routine 06/20/2025 2:35 PM EDT COMPREHENSIVE METABOLIC PANEL, PLASMA Routine 04/15/2025 2:22 [...] Recently Relevant to Health Maintenance Results * COMPLETE METABOLIC PROFILE (CMP) (06/20/2025 2:36 PM EDT) [facility] LAB BLOOD ORDERABLES F inal Result * CBC and Differential (06/20/2025 2:35 PM EDT) Only the most recent of2 resultswithin the time period is included. Blood Venous blood specimen / Unknown [facility] LAB BLOOD ORDERABLES F inal Result * (ABNORMAL) IG Profile (04/15/2025 2:22 PM EDT) IGA 253 75 - 400 mg/dL 04/15/2025 4:18 PM EDT [facility] IGG 713(L) 720 - 1,589 mg/dL 04/15/2025 4:18 PM EDT [facility] IGM 112 35 - 225 mg/dL 04/15/2025 4:18 PM EDT [facility] Blood Venous blood specimen / Unknown Venipuncture / Unknown 04/15/2025 2:22 PM EDT 04/15/2025 2:22 PM EDT [facility] LAB BLOOD ORDERABLES Lin l Result [facility] [address] [place] [address] * (ABNORMAL) Sedimentation Rate, Automated (04/15/2025 2:22 PM EDT) Sedimentation Rate 39(H) <20 mm/hr 2024 3:30 PM EDT [facility] Blood Venous blood specimen / Unknown Venipuncture / Unknown 04/15/2025 2:22 PM EDT 04/15/2025 2:22 PM EDT [facility] LAB BLOOD ORDERABLES Lin l Result Performing Organization Address City/[facility]/ZIP Co de Phone Number [facility] [address] [place] [address] * (ABNORMAL) C-Reactive Protein, Plasma (04/15/2025 2:22 PM EDT) CRP, Plasma 32.0(H) <=8.0 mg/L 04/15/2025 4:18 PM EDT [facility] Blood Venous blood specimen / Unknown Venipuncture / Unknown 04/15/2025 2:22 PM EDT 04/15/2025 2:22 PM EDT Narrative [facility] - 04/15/2025 4:18 PM EDT This CRP test is appropriate for assessment of infection, systemic inflammation and/or tissue injury. To assess cardiovascular disease risk order high sensitivity CRP (CRPH). us [facility] LAB BLOOD ORDERABLES Lin oliva Result [facility] [address] [place] [address] * (ABNORMAL) Comprehensive Metabolic Panel, Plasma (04/15/2025 2:22 PM EDT) Glucose, Plasma 103(H) 74 - 99 mg/dL 04/15/2025 4:18 PM EDT [facility] BUN, Plasma 17 8 - 23 mg/dL 04/15/2025 4:18 PM EDT [facility] Creatinine, Plasma 0.82 0.70 - 1.20 mg/dL 04/15/2025 4:18 PM EDT [facility] BUN/Creatinine Ratio 21 04/15/2025 4:18 PM EDT [facility] Sodium, Plasma 141 136 - 145 mmol/L 04/15/2025 4:18 PM EDT [facility] Potassium, Plasma 3.8 3.6 - 4.9 mmol/L 04/15/2025 4:18 PM EDT [facility] Chloride, Plasma 105 97 - 107 mmol/L 04/15/2025 4:18 PM EDT [facility] CO2, Plasma 24 22 - 29 mmol/L 04/15/2025 4:18 PM EDT [facility] Anion Gap 12 6 - 16 mmol/L 04/15/2025 4:18 PM EDT [facility] Total Calcium, Plasma 8.7(L) 8.9 - 10.2 mg/dL 04/15/2025 4:18 PM EDT [facility] Total Protein 7.0 6.3 - 7.9 g/dL 04/15/2025 4:18 PM EDT [facility] Albumin, Plasma 4.0 3.5 - 5.2 g/dL 04/15/2025 4:18 PM EDT [facility] AST, Plasma 29 10 - 50 U/L 04/15/2025 4:18 PM EDT [facility] ALT, Plasma 20 10 - 50 U/L 04/15/2025 4:18 PM EDT [facility] Alkaline Phosphatase, Plasma 107 40 - 115 U/L 04/15/2025 4:18 PM EDT [facility] Total Bilirubin, Plasma 0.3 0.2 - 1.1 mg/dL 04/15/2025 4:18 PM EDT [facility] eGFRcr 92.8 mL/min/1.7 3m*2 04/15/2025 4:18 PM EDT [facility] Comment:Reported eGFRcr in m L/min/1.73m2 is based the CKD-EPI 2020 equation that does not use a race coefficient. Blood Venous blood specimen / Unknown Venipuncture / Unknown 04/15/2025 2:22 PM EDT 04/15/2025 2:22 PM EDT [facility] LAB BLOOD ORDERABLES Lin l Result Performing Organization Address City/[facility]/ZIP Co de Phone Number [facility] [address] [place] [address] * Hepatitis C Antibody (03/04/2023 1:48 PM EDT) Hepatitis C Antibody Negative Negative 03/04/2023 3:34 PM EDT [facility] Blood Venous blood specimen / Unknown Venipuncture / Unknown 03/04/2023 1:48 PM EDT 03/04/2023 1:48 PM EDT Fe Hudson MD LAB BLOOD ORDERABLES Final Result Performing Organization Address City/State/[facility] Co de Phone Number [facility] [address] [place] [address] from Last 3 Months or Most Recently Relevant to Health Maintenance Insurance MEDICARE Care Teams Cyanide Case Hardener Relationship Specialty Start Date End Date Brandon Bennett MD [address] [facility] [address] [place] [address] PCP - General 03/23/23
[2025-07-01] MEDS: ACETAMINOPHEN 325MG TAB 650 MG (09:02)
[2025-07-01] MEDS: METHYLPREDNISOLONE SOD SUCC 125MG VIAL 125 MG (09:02)
[2025-07-01 09:20] LABS: Hematocrit 42.0 % (42.0-52.0); Hemoglobin 13.8 g/dL (14.1-18.0); Immature Granulocytes % 0.2 %; Mean Corpuscular HGB Conc 32.9 g/dL (31.8-35.4); Mean Corpuscular Hemoglobin 28.0 pg (27.0-31.2); Mean Corpuscular Volume 85.2 fl (80-94); Nucleated Red Blood Cells % 0 %; Platelet Count 209 K/mm3 (142-424); Red Blood Count 4.93 M/mm3 (4.60-6.20); Red Cell Distribution Width-SD 44.5 fL; White Blood Count 8.9 K/mm3 (4.8-10.8)
[2025-07-01 09:22] LABS: Albumin Level 4.3 g/dl (3.5-5.0); Chloride 107 mmol/L (98-107); Potassium 4.2 mmoL/L (3.5-5.1); Sodium 137 mmol/L (136-145)
[2025-07-01 09:24] LABS: Blood Urea Nitrogen 20 mg/dl (9-20); Creatinine Clearance Estimated 59 mL/min (50-200); Creatinine,Serum 0.90 mg/dl (0.66-1.25); Estimated Glomerular Filt Rate 83 ml/min (>60); GFR (African American) 100 ML/MIN (>60)
[2025-07-01 09:25] LABS: Alanine Aminotransferase 23 U/L (12-78); Albumin/Globulin Ratio 1.5 (1.1-1.8); Alkaline Phosphatase 98 U/L (38-126); Anion Gap 10.2 mEq/L (5-15); Aspartate Amino Transferase 36 U/L (17-59); Bilirubin,Total 0.7 mg/dl (0.2-1.3); Calcium 8.7 mg/dl (8.4-10.2); Carbon Dioxide 24 mmol/L (22.0-30.0); Globulin 2.8 g/dL (1.3-3.2); Glucose 98 mg/dl (74-100); Total Protein,Serum 7.1 g/dl (6.3-8.2)
[2025-07-01] MEDS: RITUXIMAB 1,000 MG in 0.9 % SODIUM CHLORIDE 400 ML 25 MG IV (09:39)
== END 2025-07-01 23:59 | disposition home or self-care (01) ==
LOC: INF 08:47
PROVIDERS: PCP Family Medicine; Visit Provider Internal Medicine Rheumatology
DX: M05.79 Rheumatoid arthritis with rheumatoid factor of multiple sites without organ or systems involvement (principal); Z79.899 Other long term (current) drug therapy
CPT/HCPCS: 80053; 85025; 96413; 96415; J2919; J7040; J9312

== ENCOUNTER 2025-11-11 09:45 | Outpatient (CLI) | payer MEDICARE, SELFPAY ==
--- OUTSIDE RECORDS SUMMARY | 2025-10-30 14:10 | XMS_ITS | Encounter Summary ---
Author Organization Healthcare Address [address] [place] [address] Care Team Providers Care Test Department Helper Name Role Phone Brandon Bennett MD Primary Care Provider [phone] Reason for Referral * Consultation (Routine) - Authorized Specialty Diagnoses / Procedures Referred By Bree parra Referred To Contact Occupational Therapy Diagnoses Deformity of hand, unspecified laterality Mary Lee PA [address] [address] Phone: tel: fax: Referral ID Status Reason Start Date Expiration Date Visits Requested Visits Authorized [id number] Authorized Specialty Services Required 5 05/01/2027 1 1 Reason for Visit * Reason Comments Follow-up Rheumatoid Arthritis Encounter Details Date Type Department Care Team (Latest Contact Info) Description 10/30/2025 2:10 PM EST Office Visit [facility] [address] [place] [address] Talat Powell MD [address] [facility] [address] [place] [address] Seropositive rheumatoid arthritis of multiple sites (CMS/HCC) (Primary Dx); Rheumatoid lung disease (CMS/HCC); Acquired deformity of both feet; Deformity of hand, unspecified laterality; Primary osteoarthritis involving multiple joints; Thrombocytopenia (CMS/HCC); High risk medication use Social History Tobacco Use Types Packs/Day Years Used Date Smoking Tobacco: Former Cigarettes 0.5 30 1 995 - 2017 Passive Smoke Exposure: Past Smokeless Tobacco: Never Tobacco Cessation:Counseling Given: Not Answered Alcohol Use Standard Drinks/Week Comments Not Currently 0 (1 standard drink = 0.6 oz pur e alcohol) PHQ-2 Answer Date Recorded Patient Health Questionnaire-2 Score 0 10/30/2025 PHQ-9 Answer Date Recorded Patient Health Questionnaire-9 [...] Sign Reading Time Taken Comments Blood Pressure 187/81 10/30/2025 2:53 PM EST Pulse 61 10/30/2025 1:59 PM EST Temperature 36.7 C (98 F) 10/30/2025 1:59 PM EST Respiratory Rate 16 10/30/2025 1:59 PM EST Oxygen Saturation 97% 10/30/2025 1:59 PM EST Inhaled Oxygen Concentration - - Weight 72.4 kg (159 lb 9.8 oz) 10/30/2025 1:59 P M EST Height 176.5 cm (5' 9.5 ) 10/30/2025 1:59 PM EST Body Mass Index 23.23 10/30/2025 1:59 PM EST documented in this encounter Functional Status * BP Answer Date of Assessment Author 187/81 10/30/2025 2:53 PM EST Federico Connelly A * Temp Answer Date of Assessment Author 98 10/30/2025 1:59 PM EST Perry, O liva * Temp src Answer Date of Assessment Author Oral 10/30/2025 1:59 PM EST Perry, O liva * Pulse Answer Date of Assessment Author 61 10/30/2025 1:59 PM EST Perry, O liva * Resp Answer Date of Assessment Author 16 10/30/2025 1:59 PM EST Perry, O liva * SpO2 Answer Date of Assessment Author 97 10/30/2025 1:59 PM EST Perry, O liva * Height Answer Date of Assessment Author 69.5 10/30/2025 1:59 PM EST Perry, O liva * Weight Answer Date of Assessment Author 2553.81 10/30/2025 1:59 PM EST Perry, O liva * BMI (Calculated) Answer Date of Assessment Author 23.3 10/30/2025 1:59 PM EST Perry, O liva * Percent Excess Weight Loss Answer Date of Assessment Author 0 10/30/2025 1:59 PM EST Perry, O liva * Total Weight Change Percent Answer Date of Assessment Author 2222 10/30/2025 1:59 PM EST Perry, O liva * Weight Change Since Preop Answer Date of Assessment Author 72.38 10/30/2025 1:59 PM EST Perry, O liva * Initial Excess Weight Answer Date of Assessment Author -73.94 10/30/2025 1:59 PM EST Perry, O liva * IBW in lbs (Bariatric) Answer Date of Assessment Author 163 10/30/2025 1:59 PM EST Perry, O liva * Weight Change Since Last Visit Answer Date of Assessment Author 72.38 10/30/2025 1:59 PM EST Perry, O liva * IBW in kg (Bariatric) Answer Date of Assessment Author 73.94 10/30/2025 1:59 PM EST Perry, O liva * Percent of IBW Answer Date of Assessment Author 3,453.9 10/30/2025 1:59 PM EST Perry, O liva * EBW (kg) Answer Date of Assessment Author 2,551.71 10/30/2025 1:59 PM EST Perry, O liva * EBW (lbs) Answer Date of Assessment Author 2,543.62 10/30/2025 1:59 PM EST Perry, O liva * Weight Change 24 hrs Answer Date of Assessment Author -.4 10/30/2025 1:59 PM EST Perry, O liva * Depression Screening Question Answer Date of Assessment Author Will the patient answer the depression risk questions? Yes 10/30/2025 2:04 PM EST Perry, Collado * BSA (Calculated - sq m) Answer Date of Assessment Author 1.88 10/30/2025 1:59 PM EST Perry, O liva * BMI (Calculated) Answer Date of Assessment Author 23.24 10/30/2025 1:59 PM EST Perry, O liva * IBW/kg (Calculated) Male Answer Date of Assessment Author 71.85 10/30/2025 1:59 PM EST Perry, O liva * IBW/kg (Calculated) Female Answer Date of Assessment Author 67.35 10/30/2025 1:59 PM EST Perry, O liva * Restart Vitals Timer Answer Date of Assessment Author Yes 10/30/2025 1:59 PM EST Perry, O liva * IBW/kg (Calculated) Answer Date of Assessment Author 71.85 10/30/2025 1:59 PM EST Perry, O liva * Over the past 2 weeks, how often have you been bothered by any of the following problems? Question Answer Date of Assessment Author Little interest or pleasure in doing things Not at all 10/30/2025 2:04 PM EST Barney Perrya Feeling down, depressed, or hopeless Not at all 10/14 2:04 PM EST Barney Perrya Patient Health Questionnaire-2 Score 0 10/14 2:04 PM EST Barney Perrya * Weight in (lb) to have BMI = 25 Answer Date of Assessment Author 171.4 10/30/2025 1:59 PM EST Perry, O liva * BMI (Calculated) Answer Date of Assessment Author 23.3 10/30/2025 1:59 PM EST Perry, O liva * Percent Excess Weight Loss Answer Date of Assessment Author 0 10/30/2025 1:59 PM EST Prery, O liva * Weight Change Since Preop Answer Date of Assessment Author 72.4 10/30/2025 1:59 PM EST Perry, O liva * Initial Excess Weight Answer Date of Assessment Author -73.94 10/30/2025 1:59 PM EST Perry, O liva * IBW in kg (Bariatric) Answer Date of Assessment Author 73.94 10/30/2025 1:59 PM EST Perry, O liva * IBW in lb (Bariatric) Answer Date of Assessment Author 163 10/30/2025 1:59 PM EST Perry, O liva * Weight Change Since Last Visit Answer Date of Assessment Author 72.4 10/30/2025 1:59 PM EST Perry, O liva * Percent of IBW Answer Date of Assessment Author 97.92 10/30/2025 1:59 PM EST Perry, O liva * EBW (kg) Answer Date of Assessment Author -1.56 10/30/2025 1:59 PM EST Perry, O liva * EBW (lb) Answer Date of Assessment Author -3.39 10/30/2025 1:59 PM EST Perry, O liva * Difference in Weight Since Last Visit Answer Date of Assessment Author -0.4 10/30/2025 1:59 PM EST Perry, O liva * Temp (in Celsius) for MECHOOPDA IV Answer Date of Assessment Author 36.7 10/30/2025 1:59 PM EST Perry, O liva * IBW/kg (Calculated) Answer Date of Assessment Author 71.85 10/30/2025 1:59 PM EST Perry, O liva * Adult Low Range Vt 6mL/kg Answer Date of Assessment Author 431.1 10/30/2025 1:59 PM EST Perry, O liva * Adult Moderate Range Vt 8mL/kg Answer Date of Assessment Author 574.8 10/30/2025 1:59 PM EST Perry, O liva * Adult High Range Vt 10mL/kg Answer Date of Assessment Author 718.5 10/30/2025 1:59 PM EST Perry, O liva * Pain Score Answer Date of Assessment Author 8 10/30/2025 2:03 PM EST Perry, O liva * Vitals Timer Question Answer Date of Assessment Author Restart Vitals Timer Yes 10/30/2025 1:59 PM E Heaven Rolon * OVER THE LAST WEEK, were you able to: Question Answer Date of Assessment Author Dress yourself, including ty ing shoelaces and doing buttons? 1 10/30/2025 2:00 PM EST Orlando Collado Get in and out of bed? 1 10/30/2025 2:00 PM Barney Manuela Lift a full cup or glass to your mouth? 1 1 12/31/2024 2:00 PM Barney Manuela Walk outdoors on flat ground? 0 10/30/2025 2:00 PM EST Orlando Collado Wash and dry your entire body? 1 10/30/2025 2:00 PM Heaven Manuel Bend down to seed cone picker clothin g from the floor? 1 10/30/2025 2:00 PM Heaven Manuel Turn regular faucets on and off? 1 10/30/20 2:00 PM Heaven Manuel Get in and out of a car, bus , train or airplane? 1 10/30/2025 2:00 PM Heaven Manuel Walk two miles or three kilo meters, if you wish? 3 10/30/2025 2:00 PM Heaven Manuel Participate in recreational activities and sports as you would like, if you wish? 3 10/30/2025 2:00 PM Heaven Manuel Get a good night s sleep? 2 10/30/2025 2:00 PM Heaven Manuel Deal with feelings of anxiet y or being nervous? 1 10/30/2025 2:00 PM Heaven Manuel Deal with feelings of depres aishwarya or feeling blue? 1 10/30/2025 2:00 PM Heaven Manuel * How much pain have you had because of your condition OVER THE PAST WEEK? Question Answer Date of Assessment Author Pain Severity: 8 10/30/2025 2:00 PM Heaven Campa * Considering all the ways in which illness and health conditions may affect you at this time, pleaseindicate how you are doing. Question Answer Date of Assessment Author Overall Wellbein 10/30/2025 2:00 PM Heaven Manuel * RAPID3 Score Question Answer Date of Assessment Author Score (0-10) 19.3 10/30/2025 2:00 PM Heaven Eduardo Interpretation High Severity (HS) 10/30/2025 2:00 PM E Heaven Rolon * Pain Screening/Additional Assessments Question Answer Date of Assessment Author Pain Screening/Assessments Pain Screening 10/30/2025 2 :03 PM Heaven Manuel * Pain Screening Answer Date of Assessment Author 0-10 10/30/2025 2:03 PM Whit Manuel * BP Answer Date of Assessment Author 187/81 10/30/2025 2:53 PM EST Federico Connelly A * Temp Answer Date of Assessment Author 98 10/30/2025 1:59 PM Whit Manuel * Temp src Answer Date of Assessment Author Oral 10/30/2025 1:59 PM EST Perry, O liva * Pulse Answer Date of Assessment Author 61 10/30/2025 1:59 PM EST Perry, O liva * Resp Answer Date of Assessment Author 16 10/30/2025 1:59 PM EST Perry, O liva * SpO2 Answer Date of Assessment Author 97 10/30/2025 1:59 PM EST Perry, O liva * Height Answer Date of Assessment Author 69.5 10/30/2025 1:59 PM EST Perry, O liva * Weight Answer Date of Assessment Author 2553.81 10/30/2025 1:59 PM EST Perry, O liva * BSA (Calculated - sq m) Answer Date of Assessment Author 1.88 10/30/2025 1:59 PM EST Perry, O liva * BMI (Calculated) Answer Date of Assessment Author 23.24 10/30/2025 1:59 PM EST Perry, O liva * Restart Vitals Timer Answer Date of Assessment Author Yes 10/30/2025 1:59 PM EST Perry, O liva * Over the past 2 weeks, how often have you been bothered by any of the following problems? Question Answer Date of Assessment Author Little interest or pleasure in doing things Not at all 10/30/2025 2:04 PM Heaven Manuel Feeling down, depressed, or hopeless Not at all 10/14 2:04 PM Heaven Manuel Patient Health Questionnaire-2 Score 0 10/14 2:04 PM Heaven Manuel * Weight in (lb) to have BMI = 25 Answer Date of Assessment Author 171.4 10/30/2025 1:59 PM EST Perry, O liva * Pain Score Answer Date of Assessment Author 8 10/30/2025 2:03 PM EST Orlando, O liva * Learning Needs Screening Question Answer Date of Assessment Author Are there things (barriers) that make it harder for this patient to learn? Physical 10/30/2025 2:07 PM Heaven Manuel What is the best language to use for teaching this patient about his/her health? Israeli 10/30/2025 2:07 PM Heaven Manuel What format does this patient think is most helpful for learning? Demonstration;Reading 10/30/2025 2:07 PM EST Heaven Perry Primary Learner Patient 10/30/2025 2:07 PM EST Heaven Barajas * Readiness to Learn Question Answer Date of Assessment Author Readiness Acceptance 10/30/2025 2:07 PM EST Heaven Pineda documented as of this encounter Mental Status * BP Answer Entry Date Author 187/81 10/30/2025 2:53 PM EST Federico Connelly josse A * Temp Answer Entry Date Author 98 10/30/2025 1:59 PM EST Perry, O liva * Temp src Answer Entry Date Author Oral 10/30/2025 1:59 PM EST Peryr, O liva * Pulse Answer Entry Date Author 61 10/30/2025 1:59 PM EST Perry, O liva * Resp Answer Entry Date Author 16 10/30/2025 1:59 PM EST Perry, O liva * SpO2 Answer Entry Date Author 97 10/30/2025 1:59 PM EST Peryr, O liva * Height Answer Entry Date Author 69.5 10/30/2025 1:59 PM EST Perry, O liva * Weight Answer Entry Date Author 2553.81 10/30/2025 1:59 PM EST Perry, O liva * BMI (Calculated) Answer Entry Date Author 23.3 10/30/2025 1:59 PM EST Perry, O liva * Percent Excess Weight Loss Answer Entry Date Author 0 10/30/2025 1:59 PM EST Perry, O liva * Total Weight Change Percent Answer Entry Date Author 2222 10/30/2025 1:59 PM EST Perry, O liva * Weight Change Since Preop Answer Entry Date Author 72.38 10/30/2025 1:59 PM EST Perry, O liva * Initial Excess Weight Answer Entry Date Author -73.94 10/30/2025 1:59 PM EST Perry, O liva * IBW in lbs (Bariatric) Answer Entry Date Author 163 10/30/2025 1:59 PM EST Perry, O liva * Weight Change Since Last Visit Answer Entry Date Author 72.38 10/30/2025 1:59 PM EST Perry, O liva * IBW in kg (Bariatric) Answer Entry Date Author 73.94 10/30/2025 1:59 PM EST Perry, O liva * Percent of IBW Answer Entry Date Author 3,453.9 10/30/2025 1:59 PM EST Perry, O liva * EBW (kg) Answer Entry Date Author 2,551.71 10/30/2025 1:59 PM EST Perry, O liva * EBW (lbs) Answer Entry Date Author 2,543.62 10/30/2025 1:59 PM EST Perry, O liva * Weight Change 24 hrs Answer Entry Date Author -.4 10/30/2025 1:59 PM EST Perry, O liva * Depression Screening Question Answer Entry Date Author Will the patient answer the depression risk questions? Yes 10/30/2025 2:04 PM EST Barney Perrya * BSA (Calculated - sq m) Answer Entry Date Author 1.88 10/30/2025 1:59 PM EST Perry, O liva * BMI (Calculated) Answer Entry Date Author 23.24 10/30/2025 1:59 PM EST Perry, O liva * IBW/kg (Calculated) Male Answer Entry Date Author 71.85 10/30/2025 1:59 PM EST Perry, O liva * IBW/kg (Calculated) Female Answer Entry Date Author 67.35 10/30/2025 1:59 PM EST Perry, O liva * Restart Vitals Timer Answer Entry Date Author Yes 10/30/2025 1:59 PM EST Perry, O liva * IBW/kg (Calculated) Answer Entry Date Author 71.85 10/30/2025 1:59 PM EST Perry, O liva * Over the past 2 weeks, how often have you been bothered by any of the following problems? Question Answer Entry Date Author Little interest or pleasure in doing things Not at all 10/30/2025 2:04 PM Heaven Manuel Feeling down, depressed, or hopeless Not at all 10/14 2:04 PM EST Heaven Perry Patient Health Questionnaire-2 Score 0 10/14 2:04 PM EST Barney Perrya * [facility] Calculation Answer Entry Date Author 3 10/30/2025 2:04 PM EST Perry, O liva * Restart Pain Assessment Timer Answer Entry Date Author Yes 10/30/2025 2:03 PM EST Perry, O liva * Weight in (lb) to have BMI = 25 Answer Entry Date Author 171.4 10/30/2025 1:59 PM EST Perry, O liva * BMI (Calculated) Answer Entry Date Author 23.3 10/30/2025 1:59 PM EST Perry, O liva * Percent Excess Weight Loss Answer Entry Date Author 0 10/30/2025 1:59 PM EST Perry, O liva * Weight Change Since Preop Answer Entry Date Author 72.4 10/30/2025 1:59 PM EST Perry, O liva * Initial Excess Weight Answer Entry Date Author -73.94 10/30/2025 1:59 PM EST Perry, O liva * IBW in kg (Bariatric) Answer Entry Date Author 73.94 10/30/2025 1:59 PM EST Perry, O liva * IBW in lb (Bariatric) Answer Entry Date Author 163 10/30/2025 1:59 PM EST Perry, O liva * Weight Change Since Last Visit Answer Entry Date Author 72.4 10/30/2025 1:59 PM EST Perry, O liva * Percent of IBW Answer Entry Date Author 97.92 10/30/2025 1:59 PM EST Perry, O liva * EBW (kg) Answer Entry Date Author -1.56 10/30/2025 1:59 PM EST Perry, O liva * EBW (lb) Answer Entry Date Author -3.39 10/30/2025 1:59 PM EST Perry, O liva * Difference in Weight Since Last Visit Answer Entry Date Author -0.4 10/30/2025 1:59 PM EST Perry, O liva * Temp (in Celsius) for MECHOOPDA IV Answer Entry Date Author 36.7 10/30/2025 1:59 PM EST Perry, O liva * IBW/kg (Calculated) Answer Entry Date Author 71.85 10/30/2025 1:59 PM EST Perry, O liva * Adult Low Range Vt 6mL/kg Answer Entry Date Author 431.1 10/30/2025 1:59 PM EST Perry, O liva * Adult Moderate Range Vt 8mL/kg Answer Entry Date Author 574.8 10/30/2025 1:59 PM EST Perry, O liva * Adult High Range Vt 10mL/kg Answer Entry Date Author 718.5 10/30/2025 1:59 PM EST Perry, O liva * Pain Score Answer Entry Date Author 8 10/30/2025 2:03 PM EST Perry, O liva * Vitals Timer Question Answer Entry Date Author Restart Vitals Timer Yes 10/30/2025 1:59 PM E Heaven Rolon * Pain Screening Answer Entry Date Author 0-10 10/30/2025 2:03 PM EST Perry, O liva documented in this encounter Miscellaneous Notes * Progress Notes - Mary Lee PA - 10/30/2025 2:10 PM EST Subjective Patient ID: Behzad Daily is a 75 y.o. male. Chief Complaint Patient presents with Follow-up Rheumatoid Arthritis HPI 75 year old male with past medical history significant for seropositive rheumatoid arthritis, osteoarthritis of multiple sites, Interstitial lung disease, and COPD is here for follow up. Last seen by me on 04/2025. Past summary : Manifested as symmetrical polyarthritis involving hands, wrist, shoulders, knees andfeet around . Seen by application development liaison and diagnosed with seropositive RA. Initially treatedwith [...] and COPD. Autoimmune workup ordered by her metal drill operator Leo Best. It showed CCP >250, RF >650. DIONI 75 ( <82), C-ANCA >1:640, negative TANMAY with reflex, atypical P ANCA, P-ANCA. ESR 81. CBC, CMP within normal limits. Quantiferon negative. Her metal drill operator is planning repeat CT chest, initiated on one week steroid 40 mg daily. He was evaluated by Dr Hudson on 03/04/23, additional serologies ordered, and given another one month steroid taper. Labs ( 03/04/23) :TANMAY homogenous 1:160. CRP 15.6, ESR 60. C3, C4 normal. Marcial, Sm/CABBAGE SALTER, SSA 52, SSA 60, SSB, SCL 70, anti DNA, MPO, IL-3 negative. Extended myositis panel ( Mary Ann-1, PL 7, PL 12, EJ, OJ, P155/140, TIF 1 gamma, FREDERICK 1, NXP2, IA 2, MDA 5, KU, U3 CABBAGE SALTER, PM SCL, SRP ) negative. Hepatitis panel [...] he had his pneumonia, shingles, COVID vaccines. He was last seen in clinic 04/2025, at that time had been having limited ROM in the hands from prior damage, but no active joint swelling or tenderness. Also with issues with b/l foot deformities, taking ibuprofen and tylenol for back pain. Hade Rituxin infusion 06/2025, last one is due 11/2025. Interim history: His next infusion in 12/2025 with ritximab. He is on Plaquenil and 10 mg leflunomide every other day. He notes hands and feet are the most bothersome. He notes MCP swelling every once in a while. He is curious about a small dose steroid. Morning stiffness x 2 hours, has improved since his initial presentation. No recent illness or infection. He is still following with pulmonology. He notes blood pressure elevated, no history of trouble. He feels it may due to his pain. He plans to call his PCP. No headache today but notes headache a few days ago. He notes blurred vision today. The following portions of the chart were reviewed this encounter and updated as appropriate: Family history : Reviewed, non contributory Social history : No drug use. 30 year smoking history. Quit in 2014. Review of Systems Constitutional: Negative for chills and fever. HENT: Negative for mouth sores. Eyes: Positive for visual disturbance. Negative for pain and redness. Respiratory: Positive for shortness of breath (on exertion). Cardiovascular: Negative for chest pain. Musculoskeletal: Positive for arthralgias, back pain and joint swelling. Negative for neck pain. Skin: Negative for rash. Current [...] (Plaquenil) 200 MG tablet Take 1.5 tablets by mouth daily. 135 tablet 1 [DISCONTINUED] leflunomide (Arava) 10 MG tablet Take 1 tablet by mouth every other day. 45 tablet 1 No current facility-administered medications on file prior to visit. Past Medical History: Diagnosis Date GERD (gastroesophageal reflux disease) Rheumatoid arthritis ([facility]/HCC) Family History Family history unknown: Yes Social [...] date: 1994 Quit date: 2017 Years since quittin.9 Passive exposure: Past Smokeless tobacco: Never Vaping Use Vaping status: Never Used Substance and Sexual Activity Alcohol use: Not Currently Drug use: Never Sexual activity: Not on file Other Topics Concern Not on file Social History Narrative Not on file Social Drivers of Health Food Insecurity: Not on file Alcohol Use: Not on file Housing Stability: Unknown (08/25/2023) Received from [facility] Housing Stability Current Living Arrangements: Not on file Potentially Unsafe Housing Conditions: Not on file Tobacco Use: Medium Risk (10/30/2025) Patient History Smoking Tobacco Use: Former Smokeless Tobacco Use: Never Passive Exposure: Past Transportation Needs: Not on file Depression: Not At Risk (10/30/2025) PHQ-2 PHQ-2 Score: 0 Utilities: Not on file Stress: Not on file Intimate Partner Violence: Unknown (08/25/2023) Received from [facility] Abuse Screen Unsafe at Home or Work/School: Not on file Feels Threatened by Someone?: Not on file Does Anyone Keep You from Contacting Others or Doint Things Outside the Home?: Not on file Physical Sign of Abuse Present: Not on file Physical Activity: Not on file Social Connections: Unknown (08/25/2023) Received from [facility] Family and Community Support Help with Day-to-Day Activities: Not on file Lonely or Isolated: Not on file Financial Resource Strain: Not on file Objective Physical Exam Constitutional: General: He is not in acute distress. Appearance: Normal appearance. He is well-developed. He is not diaphoretic. HENT: Head: Normocephalic and atraumatic. Eyes: Conjunctiva/sclera: Conjunctivae normal. Cardiovascular: Rate and Rhythm: Normal rate and regular rhythm. Pulmonary: Effort: Pulmonary effort is normal. No respiratory distress. Breath sounds: Rales present. Comments: Diminished breath sounds at bases. Bilateral rales on exam. Abdominal: General: Bowel sounds are normal. Musculoskeletal: Cervical back: Neck supple. Comments: Bilateral ( Right >> left) MCP 2nd to 4th chronic synovial thickening, with mild ulnar deviation, subluxation. CMC squaring. No acute synovitis. Limited ROM of shoulders, wrists, and hands. Skin: General: Skin is warm and dry. Findings: No rash. Neurological: General: No focal deficit present. Mental Status: He is alert and oriented [...] for follow up. Last seen byme on 04/2025. 1. Seropositive rheumatoid arthritis of multiple sites [...] in 11/2024, due next in 06/2025. TJC 4, SJC 0 CDAI 8 Mild disease activity. 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 PLAN: - Will continue Rituxan every 6 months, takes 10 mg leflunomide every other day and 1.5 tablets of Plaquenil daily -Sending in 5 mg prednisone x 30 days with one refill for breakthrough pain - C-reactive protein; Future - Sedimentation Rate, Automated; Future - hydroxychloroquine (Plaquenil) 200 MG tablet; Take 1.5 tablets by mouth daily. Dispense: 135 tablet; Refill: 1 - leflunomide (Arava) 10 MG tablet; Take 1 tablet by mouth every other day. Dispense: 45 tablet; Refill: 1 2. Rheumatoid lung disease (CMS/HCC) CT chest showed UIP pattern. PFT (03/06) : Severe obstructive lung disease with FEV1 38%. Moderate restriction noted with TLC 45% predicted. No significant air trapping. Severely reduced DLCO 31% predicted. 6MWT : Walked total 255 feet, and no significant hypoxia. Most recent PFT/CT stable disease. He also had significant clinical improvement with treatment PLAN: - Continue follow-up as per Pulmonology, next visit in 11/2025 - Will continue Rituxan + Leflunomide and plaquenil along with as needed steroids 3. Thrombocytopenia (CMS/HCC) Went down to 61 and then normalized Likely Leflunomide induced. After reducing the dose to 10 mg every other day, improved. PLAN: - Continue on 10 mg leflunomide every other day 4. High risk medication use He had Pneumonia vaccines, COVID vaccines and shingles vaccine Recommended to get Flu vaccine 2-4 weeks before his next rituxan infusion. Quantiferon indeterminate from steroid, and hepatitis panel negative. CBC & CMP WNL 04/15/25 IgG 713 on 04/15/2025 Check IgG yearly TBNK today - Lymphocyte Subset Enumeration (TBNK); Future - CBC and differential; Future - Comprehensive metabolic panel; Future 5. Primary & secondary osteoarthritis involving [...] for conservative measures to help hand function Discussed hand therapy today - Ambulatory referral to Hand Therapy; Future [...] physicians. 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 On Rituximab 2gram every 6 months, Leflunomide 10 mg every other day, Plaquenil daily. History, exam today showing mild disease activity with some stiffness, and intermittent pain. Exam showing high damage index with ulnar deviation, MCP subluxation, swan neck deformity. Will refer him to hand therapy. Asked himto report if he flares in 4-6 months from rituximab to increase the frequency. Prescribed PRN steroids. Will get monitoring labs today. I saw and evaluated the patient with Mary NAILS. I discussed the case with Mary NAILS and agree with the findings and plan as documented. I attest to being involved in more than half the total time in patient care. The patient was counseled about diagnostic results, instruction for management, risk factors reduction, prognosis, compliance with visits and treatment, risks and benefits of treatments options. Prior notes (by external physicians) and results were reviewed by me with independent interpretation of labs and imaging. My note will be sent to PCP and other consulting physicians. Talat Powell MD * Progress Notes - Mary Lee PA - 10/30/2025 2:10 PM EST Subjective Patient ID: Behzad Daily is a 75 y.o. male. Chief Complaint Patient presents with Follow-up Rheumatoid Arthritis HPI 75 year old male with past medical history significant for seropositive rheumatoid arthritis, osteoarthritis of multiple sites, Interstitial lung disease, and COPD is here for follow up. Last seen by me on 04/2025. Past summary : Manifested as symmetrical polyarthritis involving hands, wrist, shoulders, knees andfeet around . Seen by application development liaison and diagnosed with seropositive RA. Initially treatedwith [...] and COPD. Autoimmune workup ordered by her metal drill operator Leo Best. It showed CCP >250, RF >650. DIONI 75 ( <82), C-ANCA >1:640, negative TANMAY with reflex, atypical P ANCA, P-ANCA. ESR 81. CBC, CMP within normal limits. Quantiferon negative. Her metal drill operator is planning repeat CT chest, initiated on one week steroid 40 mg daily. He was evaluated by Dr Hudson on 03/04/23, additional serologies ordered, and given another one month steroid taper. Labs ( 03/04/23) :TANMAY homogenous 1:160. CRP 15.6, ESR 60. C3, C4 normal. Marcial, Sm/CABBAGE SALTER, SSA 52, SSA 60, SSB, SCL 70, anti DNA, MPO, IL-3 negative. Extended myositis panel ( Mary Ann-1, PL 7, PL 12, EJ, OJ, P155/140, TIF 1 gamma, FREDERICK 1, NXP2, IA 2, MDA 5, KU, U3 CABBAGE SALTER, PM SCL, SRP ) negative. Hepatitis panel [...] he had his pneumonia, shingles, COVID vaccines. He was last seen in clinic 04/2025, at that time had been having limited ROM in the hands from prior damage, but no active joint swelling or tenderness. Also with issues with b/l foot deformities, taking ibuprofen and tylenol for back pain. Hade Rituxin infusion 06/2025, last one is due 11/2025. Interim history: His next infusion in 12/2025 with ritximab. He is on Plaquenil and 10 mg leflunomide every other day. He notes hands and feet are the most bothersome. He notes MCP swelling every once in a while. He is curious about a small dose steroid. Morning stiffness x 2 hours, has improved since his initial presentation. No recent illness or infection. He is still following with pulmonology. He notes blood pressure elevated, no history of trouble. He feels it may due to his pain. He plans to call his PCP. No headache today but notes headache a few days ago. He notes blurred vision today. The following portions of the chart were reviewed this encounter and updated as appropriate: Family history : Reviewed, non contributory Social history : No drug use. 30 year smoking history. Quit in 2014. Review of Systems Constitutional: Negative for chills and fever. HENT: Negative for mouth sores. Eyes: Positive for visual disturbance. Negative for pain and redness. Respiratory: Positive for shortness of breath (on exertion). Cardiovascular: Negative for chest pain. Musculoskeletal: Positive for arthralgias, back pain and joint swelling. Negative for neck pain. Skin: Negative for rash. Current [...] (Plaquenil) 200 MG tablet Take 1.5 tablets by mouth daily. 135 tablet 1 [DISCONTINUED] leflunomide (Arava) 10 MG tablet Take 1 tablet by mouth every other day. 45 tablet 1 No current facility-administered medications on file prior to visit. Past Medical History: Diagnosis Date GERD (gastroesophageal reflux disease) Rheumatoid arthritis ([facility]) Family History Family history unknown: Yes Social [...] date: 1994 Quit date: 2017 Years since quittin.9 Passive exposure: Past Smokeless tobacco: Never Vaping Use Vaping status: Never Used Substance and Sexual Activity Alcohol use: Not Currently Drug use: Never Sexual activity: Not on file Other Topics Concern Not on file Social History Narrative Not on file Social Drivers of Health Food Insecurity: Not on file Alcohol Use: Not on file Housing Stability: Unknown (08/25/2023) Received from [facility] Housing Stability Current Living Arrangements: Not on file Potentially Unsafe Housing Conditions: Not on file Tobacco Use: Medium Risk (10/30/2025) Patient History Smoking Tobacco Use: Former Smokeless Tobacco Use: Never Passive Exposure: Past Transportation Needs: Not on file Depression: Not At Risk (10/30/2025) PHQ-2 PHQ-2 Score: 0 Utilities: Not on file Stress: Not on file Intimate Partner Violence: Unknown (08/25/2023) Received from [facility] Abuse Screen Unsafe at Home or Work/School: Not on file Feels Threatened by Someone?: Not on file Does Anyone Keep You from Contacting Others or Doint Things Outside the Home?: Not on file Physical Sign of Abuse Present: Not on file Physical Activity: Not on file Social Connections: Unknown (08/25/2023) Received from [facility] Family and Community Support Help with Day-to-Day Activities: Not on file Lonely or Isolated: Not on file Financial Resource Strain: Not on file Objective Physical Exam Constitutional: General: He is not in acute distress. Appearance: Normal appearance. He is well-developed. He is not diaphoretic. HENT: Head: Normocephalic and atraumatic. Eyes: Conjunctiva/sclera: Conjunctivae normal. Cardiovascular: Rate and Rhythm: Normal rate and regular rhythm. Pulmonary: Effort: Pulmonary effort is normal. No respiratory distress. Breath sounds: Rales present. Comments: Diminished breath sounds at bases. Bilateral rales on exam. Abdominal: General: Bowel sounds are normal. Musculoskeletal: Cervical back: Neck supple. Comments: Bilateral ( Right >> left) MCP 2nd to 4th chronic synovial thickening, with mild ulnar deviation, subluxation. CMC squaring. No acute synovitis. Limited ROM of shoulders, wrists, and hands. Skin: General: Skin is warm and dry. Findings: No rash. Neurological: General: No focal deficit present. Mental Status: He is alert and oriented [...] for follow up. Last seen byme on 04/2025. 1. Seropositive rheumatoid arthritis of multiple sites [...] in 11/2024, due next in 06/2025. TJC 4, SJC 0 CDAI 8 Mild disease activity. 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 PLAN: - Will continue Rituxan every 6 months, takes 10 mg leflunomide every other day and 1.5 tablets of Plaquenil daily -Sending in 5 mg prednisone x 30 days with one refill for breakthrough pain - C-reactive protein; Future - Sedimentation Rate, Automated; Future - hydroxychloroquine (Plaquenil) 200 MG tablet; Take 1.5 tablets by mouth daily. Dispense: 135 tablet; Refill: 1 - leflunomide (Arava) 10 MG tablet; Take 1 tablet by mouth every other day. Dispense: 45 tablet; Refill: 1 2. Rheumatoid lung disease (CMS/HCC) CT chest showed UIP pattern. PFT (03/06) : Severe obstructive lung disease with FEV1 38%. Moderate restriction noted with TLC 45% predicted. No significant air trapping. Severely reduced DLCO 31% predicted. 6MWT : Walked total 255 feet, and no significant hypoxia. Most recent PFT/CT stable disease. He also had significant clinical improvement with treatment PLAN: - Continue follow-up as per Pulmonology, next visit in 11/2025 - Will continue Rituxan + Leflunomide and plaquenil along with as needed steroids 3. Thrombocytopenia (CMS/HCC) Went down to 61 and then normalized Likely Leflunomide induced. After reducing the dose to 10 mg every other day, improved. PLAN: - Continue on 10 mg leflunomide every other day 4. High risk medication use He had Pneumonia vaccines, COVID vaccines and shingles vaccine Recommended to get Flu vaccine 2-4 weeks before his next rituxan infusion. Quantiferon indeterminate from steroid, and hepatitis panel negative. CBC & CMP WNL 04/15/25 IgG 713 on 04/15/2025 Check IgG yearly TBNK today - Lymphocyte Subset Enumeration (TBNK); Future - CBC and differential; Future - Comprehensive metabolic panel; Future 5. Primary & secondary osteoarthritis involving [...] for conservative measures to help hand function Discussed hand therapy today - Ambulatory referral to Hand Therapy; Future [...] physicians. 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 On Rituximab 2gram every 6 months, Leflunomide 10 mg every other day, Plaquenil daily. History, exam today showing mild disease activity with some stiffness, and intermittent pain. Exam showing high damage index with ulnar deviation, MCP subluxation, swan neck deformity. Will refer him to hand therapy. Asked himto report if he flares in 4-6 months from rituximab to increase the frequency. Prescribed PRN steroids. Will get monitoring labs today. I saw and evaluated the patient with Mary NAILS. I discussed the case with Mary NAILS and agree with the findings and plan as documented. I attest to being involved in more than half the total time in patient care. The patient was counseled about diagnostic results, instruction for management, risk factors reduction, prognosis, compliance with visits and treatment, risks and benefits of treatments options. Prior notes (by external physicians) and results were reviewed by me with independent interpretation of labs and imaging. My note will be sent to PCP and other consulting physicians. Talat Powell MD documented in this encounter Plan of Treatment Upcoming Encounters Date Type Department Care Team (Late st Contact Info) Description 05/26/2026 2:10 PM EDT Office Visit [facility] Medicine Specialties [address] [place] [address] Talat Powell MD [address] [place] [address] Scheduled Referrals Name Type Priority Associated Diagnoses Order Schedule Ambulatory referral to Hand Therapy Outpatient Referral Routine Deformity of hand, unspecified laterality 1 Occurrences starting 10/30/2025 until 05/03/2027 documented as of this encounter Results * (ABNORMAL) Sedimentation Rate, Automated (10/30/2025 3:10 PM EST) Sedimentation Rate 29(H) <20 mm/hr 2024 6:17 PM EST [facility] Blood Venous blood specimen / Unknown Venipuncture / Unknown 10/30/2025 3:10 PM EST 10/30/2025 3:10 PM EST Mary NAILS LAB BLOOD ORDERABLES Lin l Result Performing Organization Address [facility] Co de Phone Number [facility] [address] [place] [address] * C-reactive protein (10/30/2025 3:10 PM EST) CRP, Plasma 4.7 <=8.0 mg/L 10/30/2025 6:06 PM EST [facility] Blood Venous blood specimen / Unknown Venipuncture / Unknown 10/30/2025 3:10 PM EST 10/30/2025 3:10 PM EST Narrative [facility] - 10/30/2025 6:06 PM EST This CRP test is appropriate for assessment of infection, systemic inflammation and/or tissue injury. To assess cardiovascular disease risk order high sensitivity CRP (CRPH). Mary NAILS LAB BLOOD ORDERABLES Lin l Result Performing Organization Address City/[facility]/ZIP Co de Phone Number [facility] [address] [place] [address] * Comprehensive metabolic panel (10/30/2025 3:10 PM EST) Glucose, Plasma 92 74 - 99 mg/dL 10/30/2025 6:06 PM EST [facility] BUN, Plasma 15 8 - 23 mg/dL 10/30/2025 6:06 PM [facility] Creatinine, Plasma 0.84 0.70 - 1.20 mg/dL 10/30/2025 6:06 PM [facility] BUN/Creatinine Ratio 18 10/30/2025 6:06 PM [facility] Sodium, Plasma 142 136 - 145 mmol/L 10/30/2025 6:06 PM [facility] Potassium, Plasma 3.9 3.6 - 4.9 mmol/L 10/30/2025 6:06 PM [facility] Chloride, Plasma 105 97 - 107 mmol/L 10/30/2025 6:06 PM [facility] CO2, Plasma 27 22 - 29 mmol/L 10/30/2025 6:06 PM [facility] Anion Gap 10 6 - 16 mmol/L 10/30/2025 6:06 PM [facility] Total Calcium, Plasma 9.1 8.9 - 10.2 mg/dL 10/30/2025 6:06 PM [facility] Total Protein 7.1 6.3 - 7.9 g/dL 10/30/2025 6:06 PM [facility] Albumin, Plasma 4.2 3.5 - 5.2 g/dL 10/30/2025 6:06 PM [facility] AST, Plasma 27 10 - 50 U/L 10/30/2025 6:06 PM [facility] ALT, Plasma 16 10 - 50 U/L 10/30/2025 6:06 PM [facility] Alkaline Phosphatase, Plasma 91 40 - 115 U/L 10/30/2025 6:06 PM [facility] Total Bilirubin, Plasma 0.3 0.2 - 1.1 mg/dL 10/30/2025 6:06 PM [facility] eGFRcr 92.1 mL/min/1.7 3m*2 10/30/2025 6:06 PM [facility] Comment:Reported eGFRcr in m L/min/1.73m2 is based the CKD-EPI 2020 equation that does not use a race coefficient. Blood Venous blood specimen / Unknown Venipuncture / Unknown 10/30/2025 3:10 PM EST 10/30/2025 3:10 PM EST us Mary NAILS LAB BLOOD ORDERABLES Lin l Result [facility] [address] [place] [address] * CBC and differential (10/30/2025 3:10 PM EST) WBC Count 7.91 3.70 - 10.30 10*3/uL LAB HEMATOLOGY METHOD 10/30/2025 5:57 PM EST [facility] RBC Count 5.04 4.60 - 6.10 10*6/uL LAB HEMATOLOGY METHOD 10/30/2025 5:57 PM EST [facility] HGB 13.8 13.7 - 17.5 g/dL LAB HEMATOLOGY METHOD 10/30/2025 5:57 PM EST [facility] HCT 44.0 40.0 - 51.0 % LAB HEMATOLOGY METHOD 10/30/2025 5:57 PM EST [facility] Platelet Count 231 155 - 369 10*3/uL LAB HEMATOLOGY METHOD 10/30/2025 5:57 PM EST [facility] MCV 87 79 - 98 fL LAB HEMATOLOGY METHOD 10/30/2025 5:57 PM EST [facility] MCH 27.4 26.0 - 32.0 pg LAB HEMATOLOGY METHOD 10/30/2025 5:57 PM EST [facility] MCHC 31.4 30.7 - 35.5 g/dL LAB HEMATOLOGY METHOD 10/30/2025 5:57 PM EST [facility] RDW 14.3 11.5 - 14.5 % LAB HEMATOLOGY METHOD 10/30/2025 5:57 PM EST [facility] MPV 11.0 8.8 - 12.5 fL LAB HEMATOLOGY METHOD 10/30/2025 5:57 PM EST [facility] nRBC 0.0 <=0.0 per 100 WBCs LAB HEMATOLOGY METHOD 10/30/2025 5:57 PM EST [facility] Differential Type Automated LAB HEMATOLOGY METHOD 10/30/2025 5:57 PM EST [facility] Neutrophils % 72 % LAB HEMATOLOGY METHOD 10/30/2025 5:57 PM EST [facility] Lymphocytes % 16 % LAB HEMATOLOGY METHOD 10/30/2025 5:57 PM EST [facility] Monocytes % 9 % LAB HEMATOLOGY METHOD 10/30/2025 5:57 PM EST [facility] Eosinophils % 2 % LAB HEMATOLOGY METHOD 10/30/2025 5:57 PM EST [facility] Basophils % 1 % LAB HEMATOLOGY METHOD 10/30/2025 5:57 PM EST [facility] Immature Granulocytes % 0 % LAB HEMATOLOGY METHOD 10/30/2025 5:57 PM EST [facility] Neutrophils Absolute 5.70 1.60 - 6.10 10*3/uL LAB HEMATOLOGY METHOD 10/30/2025 5:57 PM EST [facility] Lymphocytes Absolute 1.23 1.20 - 3.90 10*3/uL LAB HEMATOLOGY METHOD 10/30/2025 5:57 PM EST [facility] Monocytes Absolute 0.72 0.30 - 0.90 10*3/uL LAB HEMATOLOGY METHOD 10/30/2025 5:57 PM EST [facility] Eosinophils Absolute 0.14 0.00 - 0.50 10*3/uL LAB HEMATOLOGY METHOD 10/30/2025 5:57 PM EST [facility] Basophils Absolute 0.10 0.00 - 0.10 10*3/uL LAB HEMATOLOGY METHOD 10/30/2025 5:57 PM EST [facility] Immature Granulocytes Absolute 0.02 0.00 - 0.06 10*3/uL LAB HEMATOLOGY METHOD 10/30/2025 5:57 PM EST [facility] Blood Venous blood specimen / Unknown Venipuncture / Unknown 10/30/2025 3:10 PM EST 10/30/2025 3:10 PM EST Narrative [facility] - 10/30/2025 5:57 PM EST Therapeutic decision making should be based on absolute values, rather than percentages. us Mary NAILS LAB BLOOD ORDERABLES Lin oliva Result [facility] [address] [place] [address] * (ABNORMAL) Lymphocyte Subset Enumeration (TBNK) (10/30/2025 3:10 PM EST) Percent CD3 84.2(H) 57.5 - 83.1 % 10/31/2025 9:21 AM EST [facility] Absolute CD3 1,204 860 - 2,670 cells/uL 10/31/2025 9:21 AM EST [facility] Percent CD4 62.5(H) 31.5 - 62.4 % 10/31/2025 9:21 AM EST [facility] Absolute CD4 894 490 - 1,730 cells/uL 10/31/2025 9:21 AM EST [facility] Percent CD8 19.8 9.5 - 38.3 % 10/31/2025 9:21 AM EST [facility] Absolute CD8 283 160 - 1,070 cells/uL 10/31/2025 9:21 AM EST [facility] Percent CD19 0.0(L) 6.0 - 24.2 % 10/31/2025 9:21 AM EST [facility] Absolute CD19 1(L) 73 - 562 cells/uL 10/31/2025 9:21 AM EST [facility] Percent CD16+CD56 15.6 5.2 - 30.4 % 10/31/2025 9:21 AM EST [facility] Absolute CD16+CD56 223 110 - 680 cells/uL 10/31/2025 9:21 AM EST [facility] CD4:CD8 Ratio 3.09 10/31/2025 9:21 AM EST [facility] Blood Venous blood specimen / Unknown Venipuncture / Unknown 10/30/2025 3:10 PM EST 10/30/2025 3:10 PM EST Mary NAILS LAB FLOW CYTOMETRY ORDERA BLES Final Result [facility] [address] [place] [address] documented in this encounter Visit Diagnoses Diagnosis Seropositive rheumatoid arthritis of multiple sites (CMS/HCC)- Primary Rheumatoid lung disease (CMS/HCC) Rheumatoid lung Acquired deformity of both feet Deformity of hand, unspecified laterality Primary osteoarthritis involving multiple joints Thrombocytopenia (CMS/HCC) Unspecified thrombocytopenia High risk medication use documented in this encounter Additional Health Concerns Assessment Noted Time PHQ-9 Depression Total Score: 0 04/15/20 25 1:09 PM EDT A fall risk assessment has been complete d for the patient 10/30/2025 2:04 PM EST A Body Mass Index follow-up plan has been documented for the patient 10/30/2025 7:27 PM EST documented as of this encounter Care Teams Test Department Helper Relationship Specialty [place] [id number] PCP - General 03/23/23 documented as of this encounter
--- OUTSIDE RECORDS SUMMARY | 2025-11-11 09:55 | XMS_ITS | Encounter Summary ---
Author Organization Healthcare Address [address] [place] [address] Care Team Providers Care Process Coach Name Role Phone Brandon Bennett MD Primary Care Provider Encounter Details Date Type Department Care Team (Late st Contact Info) Description 11/21/2024 Telephone [facility] Infusion [address] [place] [address] Shobha Smith, [facility] [address] [place] [address] Social History Tobacco Use Types Packs/Day Years Used Date Smoking Tobacco: Former Cigarettes 0.5 30 2016 Smokeless Tobacco: Never Alcohol Use Standard [...] encounter Miscellaneous Notes * Telephone Encounter - Dania Gillis, [facility] - 09/13/2025 12:52 PM EDT Medicare B/Advantage Plan Authorization Information Specialty Medication: Rituxan Diagnosis Code: M05.79 J-code/CPT code/S code: J9312 Covered by Medicare B: Yes Does the diagnosis, dose, and frequency match an FDA approved dosing schedule? Yes, list prescribeddose/frequency: 1000mg day 1 and day 15 Site of Care: [facility] Does patient have an Advantage Plan? Yes, NOTE Medicare B MUST cover for Advantage Plan to cover Advantage plan name: [employer] How was request submitted? Auto Renewal Reference number: [id number] Follow-up phone: [phone] Authorization number: [id number] Approval dates: 11/14/2025-11/13/2026 * Telephone Encounter - Jolanta Vizcaino - [...] Description 05/26/2026 2:10 PM EDT Office Visit [facility] Medicine Specialties [address] [place] [address] Talat Powell MD [address] [facility] [address] [place] [address] documented as of this encounter Results * CBC and differential (12/05/2024 10:29 AM EST) Blood Venous blood specimen / Unknown Talat Powell MD LAB BLOOD ORDERABLES Fi nal Result Performing Organization Address City/[facility]/ZIP Co de Phone Number EXTERNAL LAB * Comprehensive metabolic panel (12/05/2024 10:27 AM EST) Blood Venous blood specimen / Unknown Talat Powell MD LAB BLOOD ORDERABLES Fi nal Result EXTERNAL LAB documented in this encounter Visit [...] documented as of this encounter Care Teams Process Coach Relationship Specialty Start Date End Date Brandon Bennett MD [phone] PCP - General 03/23/23 documented as of this encounter
--- OUTSIDE RECORDS SUMMARY | 2025-11-11 09:55 | XMS_ITS | Encounter Summary ---
Author Organization Healthcare Address [address] [place] [address] Care Team Providers Care Gas Turbine Mechanic Name Role Phone Brandon Bennett MD Primary Care Provider [phone] Encounter Details Date Type Department Care Team (Late st Contact Info) Description 11/01/2025 Results Follow-Up [facility] Medicine Specialties [address] [place] [address] Mary Lee PA [address] [facility] [address] [place] [address] Social History Tobacco Use Types Packs/Day Years Used Date Smoking Tobacco: Former Cigarettes 0.5 30 1 - 2016 Passive Smoke Exposure: Past Smokeless Tobacco: Never Alcohol Use Standard Drinks/Week [...] Description 05/26/2026 2:10 PM EDT Office Visit [facility] Medicine Specialties [address] [place] [address] Talat Powell MD [address] [place] [address] documented as of this encounter Visit Diagnoses [...] documented as of this encounter Care Teams Gas Turbine Mechanic Relationship Specialty [place] [id number] PCP - General 03/23/23 documented as of this encounter
--- OUTSIDE RECORDS SUMMARY | 2025-11-11 09:55 | XMS_ITS | Encounter Summary ---
Author Organization Healthcare Address [address] [place] [address] Care Team Providers Care Environmental Remediation Specialist Name Role Phone Brandon Bennett MD Primary Care Provider [phone] Encounter Details Date Type Department Care Team (Late st Contact Info) Description 10/21/2025 Telephone [facility] [address] [place] [address] Talat Powell MD [address] [place] [address] Social History Tobacco Use Types Packs/Day Years Used Date Smoking Tobacco: Former Cigarettes 0.5 30 1 - 2016 Smokeless Tobacco: Never Alcohol Use [...] encounter Miscellaneous Notes * Telephone Encounter - Catherine Lugo RN - 10/29/2025 10:42 AM EST Called and spoke with Behzad--scheduled with Dr. Kc tomorrow at 2:10pm. * Telephone Encounter - Catherine Lugo RN - 10/25/2025 3:28 PM EST Called Behzad back at both phone numbers on file--no answer, no option to leave VM. * Telephone Encounter - Soniya Fuller - 10/21/2025 1:31 PM EST Clinical Concern/Question Reason for Call: pt received a text message last week about a sooner appt. Pt calling today wantingto know if that appt was still available and if not hoping to be seen sooner that January. Please call Best contact number: [phone] (mobile) or [phone] Optimal time of day to reach caller: ANYTIME Additional comments/information from caller: None Note: Please do not reply to this message. Follow-up communication and further actions as a result of this message need to be communicated with the patient directly, if the patient is not active onMyChart. If the patient is active on MyChart, they will receive notification of the communication/outcome via [employer]. documented in this encounter Plan of Treatment Upcoming Encounters Date Type Department Care Team (Late st Contact Info) Description 05/26/2026 2:10 PM EDT Office Visit [facility] [address] [place] [address] Talat Powell MD [address] [place] [address] documented as of this encounter Visit Diagnoses [...] documented as of this encounter Care Teams Environmental Remediation Specialist Relationship Specialty Start Date End Date Brandon Bennett MD [id number] PCP - General 03/23/23 documented as of this encounter
--- OUTSIDE RECORDS SUMMARY | 2025-11-11 09:55 | XMS_ITS | Clinical Summary ---
Author Organization Healthcare Address [address] [place] [address] Care Team Providers Care Flue Gas Analyst Name Role Phone Brandon Bennett MD Primary Care Provider [phone] Allergies No known active allergies Medications albuterol 108 (90 Base) MCG/ACT inhaler Inhale 2 puffs 1 (one) time each day if needed. Active cholecalciferol (Vitamin D3) 25 MCG (1000 UT) tablet Take 1 tablet (1,000 Units) by mouth 1 (one) time each day. Active fluticasone (Flonase) 50 MCG/ACT nasal spray USE 1 SPRAY(S) IN EACH NOSTRIL ONCE DAILY 3 Active omeprazole (PriLOSEC) [address] capsule Take 1 capsule by mouth daily. 5 Active hydroxychloroqu ine (Plaquenil) 200 MG tabletIndicatio ns:Seropositive rheumatoid arthritis of multiple sites (CMS/HCC) Take 1.5 tablets by mouth daily. 135 tablet 1 5 Active leflunomide (Arava) 10 MG tabletIndicatio ns:Seropositive rheumatoid arthritis of multiple sites (CMS/HCC) Take 1 tablet by mouth every other day. 45 tablet 1 5 Active predniSONE (Deltasone) 5 MG tablet Take 1 tablet by mouth daily. 30 tablet 1 5 Active leflunomide (Arava) 10 MG tabletIndicatio ns:Seropositive rheumatoid arthritis of multiple sites (CMS/HCC) Take 1 tablet by mouth every other day. 45 tablet 1 5 10/30/20 25 Discontinu ed(Reorder ) hydroxychloroqu ine (Plaquenil) 200 MG tabletIndicatio ns:Seropositive rheumatoid arthritis of multiple sites (CMS/HCC) Take 1.5 tablets by mouth daily. 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 Medicine Specialties [facility], [address] [place] [phone] Mary Lee PA 10/30/2025 2:10 PM EST Office Visit [facility] Medicine Specialties [address] [place] [address], [address] [place] [phone] Talat Powell MD Seropositive rheumatoid arthritis of multiple sites (CMS/HCC) (Primary Dx); Rheumatoid lung disease ([facility]/HCC); Acquired deformity of both feet; Deformity of hand, unspecified laterality; Primary osteoarthritis involving multiple joints; Thrombocytopenia ([facility]/HCC); High risk medication use 10/30/2025 Travel 10/21/[address] [facility] Medicine Specialties [address] [place] [address], [address] [place] [phone] Talat Powell MD from Last 3 Months Immunizations Immunization Administration [...] Mass Index 23.23 10/30/2025 1:59 PM EST Plan of Treatment Upcoming Encounters Date Type Department Care Team (Late st Contact Info) Description 05/26/2026 2:10 PM EDT Office Visit [facility] [address] [place] [address] Talat Powell MD [address] [place] [address] Health Maintenance Due Date Last Done Comments [facility]-Medicare Annual Wellness (AWV) 1950 [facility]-/Child/Adol SDOH Screenings 1950 [facility]-ECGUH-19 Vaccine (#1) 1950 [facility]- SDOH Screenings 1970 [facility]-Adult SDOH Screenings 1970 [facility]-DTaP,Tdap,and Td Vaccine s (1 - Tdap) 1971 [facility]-Pneumococcal Vaccine: 50 + Years (1 of 2 - PCV) 1971 CT Colonography 1997 Colonoscopy 1997 FIT-DNA 1997 FIT 1997 FOBT 1997 Sigmoidoscopy 1997 [facility]-Colorectal Cancer Screening 1997 [facility]-RSV Vaccine: 60+ Years o r (1 - Risk 50-74 years 1-dose series) 2002 [facility]-Abdominal Aortic Aneurys m (AAA) Screening 2017 [facility]-Influenza Vaccine (#1) 07/15/202508/18, 08/15/2023 [facility]-Depression Screening 10/30/2026 025, 04/15/2025, 03/23/2023 [facility]-Hepatitis C Screening Completed 03/04/2023 [facility]-Zoster Vaccines Completed 05/30/2023, 03/24/2023 HPV Vaccines (No Doses Required) Completed [facility]-HIB Vaccines Aged Out No longer e [...] Procedure Name Priority Date/Time Associated Diagnosis Comments LYMPHOCYTE SUBSET ENUMERATION, TBNK Routine 10/30/2025 3:10 PM EST High risk medication use CBC WITH AUTO DIFFERENTIAL Routine 10/30/2025 3:10 PM EST High risk medication use COMPREHENSIVE METABOLIC PANEL, PLASMA Routine 10/30/2025 3:10 PM EST High risk medication use C-REACTIVE PROTEIN, PLASMA Routine 10/30/2025 3:10 PM EST Seropositive rheumatoid arthritis of multiple sites (CMS/HCC) SEDIMENTATION RATE, AUTOMATED Routine 10/30/2025 3:10 PM EST Seropositive rheumatoid arthritis of multiple sites (CMS/HCC) HEPATITIS C ANTIBODY W/REFLEX TO HCV QUANT PCR Routine 03/04/2023 1:48 PM EDT ILD (interstitial lung disease) (CMS/HCC) Rheumatoid arthritis involving multiple sites with positive rheumatoid factor (CMS/HCC) Weakness from Last 3 Months or Most Recently Relevant to Health Maintenance Results * (ABNORMAL) Lymphocyte Subset Enumeration (TBNK) (10/30/2025 3:10 PM EST) Percent CD3 84.2(H) 57.5 - 83.1 % 10/31/2025 9:21 AM EST [facility] Absolute CD3 1,204 860 - 2,670 cells/uL 10/31/2025 9:21 AM EST [facility] Percent CD4 62.5(H) 31.5 - 62.4 % 10/31/2025 9:21 AM EST [facility] Absolute CD4 894 490 - 1,730 cells/uL 10/31/2025 9:21 AM EST [facility] Percent CD8 19.8 9.5 - 38.3 % 10/31/2025 9:21 AM EST [facility] Absolute CD8 283 160 - 1,070 cells/uL 10/31/2025 9:21 AM EST [facility] Percent CD19 0.0(L) 6.0 - 24.2 % 10/31/2025 9:21 AM EST [facility] Absolute CD19 1(L) 73 - 562 cells/uL 10/31/2025 9:21 AM EST [facility] Percent CD16+CD56 15.6 5.2 - 30.4 % 10/31/2025 9:21 AM EST [facility] Absolute CD16+CD56 223 110 - 680 cells/uL 10/31/2025 9:21 AM EST [facility] CD4:CD8 Ratio 3.09 10/31/2025 9:21 AM EST [facility] Blood Venous blood specimen / Unknown Venipuncture / Unknown 10/30/2025 3:10 PM EST 10/30/2025 3:10 PM EST us Mary NAILS [facility] FLOW CYTOMETRY ORDERA BLES Final Result [facility] [address] [place] [address] * (ABNORMAL) Sedimentation Rate, Automated (10/30/2025 3:10 PM EST) Sedimentation Rate 29(H) <20 mm/hr 2024 6:17 PM EST [facility] Blood Venous blood specimen / Unknown Venipuncture / Unknown 10/30/2025 3:10 PM EST 10/30/2025 3:10 PM EST Mary [facility] BLOOD ORDERABLES Lin hazel Result [facility] [address] [place] [address] * CBC and differential (10/30/2025 3:10 PM EST) WBC Count 7.91 3.70 - 10.30 10*3/uL LAB HEMATOLOGY METHOD 10/30/2025 5:57 PM EST [facility] RBC Count 5.04 4.60 - 6.10 10*6/uL LAB HEMATOLOGY METHOD 10/30/2025 5:57 PM EST [facility] HGB 13.8 13.7 - 17.5 g/dL LAB HEMATOLOGY METHOD 10/30/2025 5:57 PM EST [facility] HCT 44.0 40.0 - 51.0 % LAB HEMATOLOGY METHOD 10/30/2025 5:57 PM EST [facility] Platelet Count 231 155 - 369 10*3/uL LAB HEMATOLOGY METHOD 10/30/2025 5:57 PM EST [facility] MCV 87 79 - 98 fL LAB HEMATOLOGY METHOD 10/30/2025 5:57 PM EST [facility] MCH 27.4 26.0 - 32.0 pg LAB HEMATOLOGY METHOD 10/30/2025 5:57 PM EST [facility] MCHC 31.4 30.7 - 35.5 g/dL LAB HEMATOLOGY METHOD 10/30/2025 5:57 PM EST [facility] RDW 14.3 11.5 - 14.5 % LAB HEMATOLOGY METHOD 10/30/2025 5:57 PM EST [facility] MPV 11.0 8.8 - 12.5 fL LAB HEMATOLOGY METHOD 10/30/2025 5:57 PM EST [facility] nRBC 0.0 <=0.0 per 100 WBCs LAB HEMATOLOGY METHOD 10/30/2025 5:57 PM EST [facility] Differential Type Automated LAB HEMATOLOGY METHOD 10/30/2025 5:57 PM EST [facility] Neutrophils % 72 % LAB HEMATOLOGY METHOD 10/30/2025 5:57 PM EST [facility] Lymphocytes % 16 % LAB HEMATOLOGY METHOD 10/30/2025 5:57 PM EST [facility] Monocytes % 9 % LAB HEMATOLOGY METHOD 10/30/2025 5:57 PM EST [facility] Eosinophils % 2 % LAB HEMATOLOGY METHOD 10/30/2025 5:57 PM EST [facility] Basophils % 1 % LAB HEMATOLOGY METHOD 10/30/2025 5:57 PM EST [facility] Immature Granulocytes % 0 % LAB HEMATOLOGY METHOD 10/30/2025 5:57 PM EST [facility] Neutrophils Absolute 5.70 1.60 - 6.10 10*3/uL LAB HEMATOLOGY METHOD 10/30/2025 5:57 PM EST [facility] Lymphocytes Absolute 1.23 1.20 - 3.90 10*3/uL LAB HEMATOLOGY METHOD 10/30/2025 5:57 PM EST [facility] Monocytes Absolute 0.72 0.30 - 0.90 10*3/uL LAB HEMATOLOGY METHOD 10/30/2025 5:57 PM EST [facility] Eosinophils Absolute 0.14 0.00 - 0.50 10*3/uL LAB HEMATOLOGY METHOD 10/30/2025 5:57 PM EST [facility] Basophils Absolute 0.10 0.00 - 0.10 10*3/uL LAB HEMATOLOGY METHOD 10/30/2025 5:57 PM EST [facility] Immature Granulocytes Absolute 0.02 0.00 - 0.06 10*3/uL LAB HEMATOLOGY METHOD 10/30/2025 5:57 PM EST [facility] Blood Venous blood specimen / Unknown Venipuncture / Unknown 10/30/2025 3:10 PM EST 10/30/2025 3:10 PM EST [facility] - 10/30/2025 5:57 PM EST Therapeutic decision making should be based on absolute values, rather than percentages. us Mary NAILS LAB BLOOD ORDERABLES Lin l Result [facility] [address] [place] [address] * C-reactive protein (10/30/2025 3:10 PM EST) CRP, Plasma 4.7 <=8.0 mg/L 10/30/2025 6:06 PM EST [facility] Blood Venous blood specimen / Unknown Venipuncture / Unknown 10/30/2025 3:10 PM EST 10/30/2025 3:10 PM EST Narrative [facility] - 10/30/2025 6:06 PM EST This CRP test is appropriate for assessment of infection, systemic inflammation and/or tissue injury. To assess cardiovascular disease risk order high sensitivity CRP (CRPH). us Mary NAILS LAB BLOOD ORDERABLES Lin oliva Result [facility] [address] [place] [address] * Comprehensive metabolic panel (10/30/2025 3:10 PM EST) Glucose, Plasma 92 74 - 99 mg/dL 10/30/2025 6:06 PM EST [facility] BUN, Plasma 15 8 - 23 mg/dL 10/30/2025 6:06 PM EST [facility] Creatinine, Plasma 0.84 0.70 - 1.20 mg/dL 10/30/2025 6:06 PM EST [facility] BUN/Creatinine Ratio 18 10/30/2025 6:06 PM EST [facility] Sodium, Plasma 142 136 - 145 mmol/L 10/30/2025 6:06 PM EST [facility] Potassium, Plasma 3.9 3.6 - 4.9 mmol/L 10/30/2025 6:06 PM EST [facility] Chloride, Plasma 105 97 - 107 mmol/L 10/30/2025 6:06 PM EST [facility] CO2, Plasma 27 22 - 29 mmol/L 10/30/2025 6:06 PM EST [facility] Anion Gap 10 6 - 16 mmol/L 10/30/2025 6:06 PM EST [facility] Total Calcium, Plasma 9.1 8.9 - 10.2 mg/dL 10/30/2025 6:06 PM EST [facility] Total Protein 7.1 6.3 - 7.9 g/dL 10/30/2025 6:06 PM EST [facility] Albumin, Plasma 4.2 3.5 - 5.2 g/dL 10/30/2025 6:06 PM [facility] AST, Plasma 27 10 - 50 U/L 10/30/2025 6:06 PM [facility] ALT, Plasma 16 10 - 50 U/L 10/30/2025 6:06 PM [facility] Alkaline Phosphatase, Plasma 91 40 - 115 U/L 10/30/2025 6:06 PM [facility] Total Bilirubin, Plasma 0.3 0.2 - 1.1 mg/dL 10/30/2025 6:06 PM [facility] eGFRcr 92.1 mL/min/1.7 3m*2 10/30/2025 6:06 PM [facility] Comment:Reported eGFRcr in m L/min/1.73m2 is based the CKD-EPI 2020 equation that does not use a race coefficient. Blood Venous blood specimen / Unknown Venipuncture / Unknown 10/30/2025 3:10 PM EST 10/30/2025 3:10 PM EST us Mary NAILS LAB BLOOD ORDERABLES Lin l Result Performing Organization Address City/[facility]/ZIP Co de Phone Number [facility] [address] [place] [address] * Hepatitis C Antibody (03/04/2023 1:48 PM EDT) Hepatitis C Antibody Negative Negative 03/04/2023 3:34 PM EDT [facility] Blood Venous blood specimen / Unknown Venipuncture / Unknown 03/04/2023 1:48 PM EDT 03/04/2023 1:48 PM EDT us Fe Hudson MD LAB BLOOD ORDERABLES Final Result Performing Organization Address City/[facility]/ZIP Co de Phone Number [facility] [address] [place] [address] from Last 3 Months or Most Recently Relevant to Health Maintenance Insurance [facility] MEDICARE Care Teams Flue Gas Analyst Relationship Specialty [place] [id number] PCP - General 03/23/23
--- OUTSIDE RECORDS SUMMARY | 2025-11-11 09:55 | XMS_ITS | Clinical Summary ---
Author Organization [facility] Address [address] [place] [address] Care Team Providers Care Recruiting Associate Name Role Phone Brandon Bennett MD Primary Care Provider [phone] Allergies No known active allergies Medications citalopram [...] ANNUAL PHYSICAL 09/11/2019 HEPATITIS C SCREENING 09/11/2019 INFLUENZA VACCINE 06/14/2025 COVID-19 Vaccine ( season) 2025 Medical Devices Implanted Type Area [employer] Hand Device Identifier Shelf Expiration Date Model / Serial / Lot Grft Amnio Umb Cord Pro3c Thick 3x6cm - [id number] - [id number] Implanted:Qty : 1 on 09/18/2019 by Juan F Saravia Jr., MD at [facility] Implant [employer]ON 28 01/17/2024 [id number] / [id number] / Sealant Fibrin Tisseel Fz 4ml - [id number] Implanted:Qty : 1 on 09/18/2019 by Juan F Saravia Jr., MD at [facility] Implant Left: Pelvis [facility] 01/11/2021 [id number] / / [id number] Insurance [facility] MEDICARE ADVANTAGE Advance Directives * CPR (Attempt to Resuscitate) (Latest Code Status on File) Date Activated Date Inactivated Comments 09/18/2019 1:11 PM 09/19/2019 2:26 PM Question Answer Comments Code Status (Patient has no pulse and is not breathing): CPR (Attempt to Resuscitate) Medical Interventions (Patie nt has pulse or is breathing): Full Level Of Support Discussed With: Patient Care Teams Recruiting Associate Relationship Specialty Start Date End Date Brandon Bennett MD [address] [facility] [address] [facility] [address] [place] [address] PCP - General Family Medicine 09/11/19
--- OUTSIDE RECORDS SUMMARY | 2025-11-11 09:55 | XMS_ITS | Encounter Summary ---
Author Organization Healthcare Address [address] [place] [address] Care Team Providers Care Ornament Stitcher Name Role Phone Brandon Bennett MD Primary Care Provider [phone] Encounter Details Date Type Department Care Team (Latest Contact Info) Description 10/30/2025 Travel Social History Tobacco Use Types Packs/Day Years Used Date Smoking Tobacco: Former Cigarettes 0.5 30 1 2016 Passive Smoke Exposure: Past Smokeless Tobacco: [...] as of this encounter Functional Status * Communicable Disease Screening Question Answer Date of Assessment Author Have you been in contact wit h someone who was sick? No / Unsure 10/30/2025 1:54 PM Kaylynn Dixon Do you have any of the following new or worsening symptoms? None of these 10/30/2025 1:54 PM Kaylynn Dixon * Travel Screening Question Answer Date of Assessment Author Have you traveled [place] or [place]ically in the last month? No 10/30/2025 1:54 PM Kaylynn Craig documented as of this encounter Mental Status * Communicable Disease Screening Question Answer Entry Date Author Have you been in contact wit h someone who was sick? No / Unsure 10/30/2025 1:54 PM Kaylynn Dixon Do you have any of the following new or worsening symptoms? None of these 10/30/2025 1:54 PM Kaylynn Dixon * Travel Screening Question Answer Entry Date Author Have you traveled [place] or [place]ically in the last month? No 10/30/2025 1:54 PM Kaylynn Craig documented in this encounter Plan of Treatment Upcoming Encounters Date Type Department Care Team (Late st Contact Info) Description 05/26/2026 2:10 PM EDT Office Visit [place] [facility] [address] [place] [address] Talat Powell MD [address] [place] [address] documented as of this encounter [...] documented as of this encounter Care Teams Ornament Stitcher Relationship Specialty [place] [id number] PCP - General 03/23/23 documented as of this encounter
--- NOTE | 2025-11-11 10:00 | CT_ITS ---
FINAL REPORT TECHNIQUE: Thin section axial images were obtained through the lungs using a low-dose technique per lung cancer screening protocol. Reconstruction images were obtained using the axial data. Exam was performed using dose reduction technique. CLINICAL HISTORY: lung cancer screening former smoker quit 6 years ago, 1/2ppd x40 years COMPARISON: CT chest 11/09/2024 FINDINGS: CTDLvol: 2.90 DLP: 102.12 Former smoker 20 pack year history Lungs: There are bilateral noncalcified pulmonary nodules which are stable. An example nodule is along the left major fissure on series 4 image 42 measuring 8 mm and was 8 mm. A nodule along the right major fissure on series 4 image 37 measures 10 mm and was 10 mm. There are additional bilateral 5 mm or less pulmonary nodules. There has been no change in the subpleural interstitial changes, patchy airspace disease in the right upper lobe and superior segment of the right lower lobe. Extensive honeycombing fibrosis in the lung bases is stable. No new nodules or consolidation identified. Lymph nodes: No axillary lymphadenopathy. There are mildly prominent AP window lymph nodes which are unchanged. Mediastinum: Heart size is normal. There are prominent coronary artery calcifications. Pleura/pericardium: No pleural or pericardial effusion. Pleural calcifications on the right are stable. Other: Limited images of the upper abdomen demonstrate gallstones. IMPRESSION: Stable bilateral pulmonary nodules. Changes of chronic interstitial lung disease and pulmonary fibrosis. Prominent coronary artery calcifications. Lung RADS: 2S Recommendation: 12-month follow-up low-dose chest CT Reviewed, Interpreted and Dictated by Danielle Hoffman MD Transcribed by Adore Santos Authenticated and [facility]
== END 2025-11-11 23:59 | disposition home or self-care (01) ==
LOC: RAD 09:46
PROVIDERS: PCP Family Medicine; Visit Provider Internal Medicine Pulmonary Disease
DX: Z12.2 Encounter for screening for malignant neoplasm of respiratory organs (principal); Z87.891 Personal history of nicotine dependence; R91.8 Other nonspecific abnormal finding of lung field; J84.10 Pulmonary fibrosis, unspecified; I25.10 Atherosclerotic heart disease of native coronary artery without angina pectoris; K80.20 Calculus of gallbladder without cholecystitis without obstruction
CPT/HCPCS: 71271